=== PATIENT | male | born 1945 | race Caucasian/White ===

== ENCOUNTER → 2018-07-05 | Outpatient (CLI) | payer MEDICARE, MEDICAID ==
[~2018-07-05] MED LIST: CIPROFLOXACIN PO; GLIP5TAB13 PO; LISI20TA PO; LOVA20TA2 PO; METF-380 PO; SULF1TAB35 PO
== END ==
LOC: WOUNDCARE 12:57
PROVIDERS: ATTEND Surgery
DX: E11.621 Type 2 diabetes mellitus with foot ulcer (principal); I70.235 Atherosclerosis of native arteries of right leg with ulceration of other part of foot; L97.512 Non-pressure chronic ulcer of other part of right foot with fat layer exposed; E11.22 Type 2 diabetes mellitus with diabetic chronic kidney disease; N18.3 Chronic kidney disease, stage 3 (moderate); E11.65 Type 2 diabetes mellitus with hyperglycemia; E11.42 Type 2 diabetes mellitus with diabetic polyneuropathy
CPT/HCPCS: 99213

== ENCOUNTER → 2018-07-10 | Outpatient (CLI) | payer MEDICARE, MEDICAID | LOC: WOUNDCARE 15:01 | PROVIDERS: ATTEND Surgery | DX: E11.621 Type 2 diabetes mellitus with foot ulcer (principal); I70.235 Atherosclerosis of native arteries of right leg with ulceration of other part of foot; L97.512 Non-pressure chronic ulcer of other part of right foot with fat layer exposed; E11.22 Type 2 diabetes mellitus with diabetic chronic kidney disease; N18.3 Chronic kidney disease, stage 3 (moderate); E11.65 Type 2 diabetes mellitus with hyperglycemia; E11.42 Type 2 diabetes mellitus with diabetic polyneuropathy | CPT/HCPCS: 11042 ==

== ENCOUNTER → 2018-07-13 | Outpatient (CLI) | payer MEDICARE, MEDICAID | LOC: RAD 14:24 | PROVIDERS: ATTEND Surgery | DX: E11.621 Type 2 diabetes mellitus with foot ulcer (principal); E11.42 Type 2 diabetes mellitus with diabetic polyneuropathy; M89.8X7 Other specified disorders of bone, ankle and foot; L97.512 Non-pressure chronic ulcer of other part of right foot with fat layer exposed; I70.235 Atherosclerosis of native arteries of right leg with ulceration of other part of foot; E11.22 Type 2 diabetes mellitus with diabetic chronic kidney disease; N18.3 Chronic kidney disease, stage 3 (moderate) ==

== ENCOUNTER → 2018-07-17 | Outpatient (CLI) | payer MEDICARE, MEDICAID | LOC: WOUNDCARE 15:09 | PROVIDERS: ATTEND Surgery | DX: E11.621 Type 2 diabetes mellitus with foot ulcer (principal); L97.512 Non-pressure chronic ulcer of other part of right foot with fat layer exposed; I70.235 Atherosclerosis of native arteries of right leg with ulceration of other part of foot; E11.42 Type 2 diabetes mellitus with diabetic polyneuropathy; E11.22 Type 2 diabetes mellitus with diabetic chronic kidney disease; N18.3 Chronic kidney disease, stage 3 (moderate) | CPT/HCPCS: 11042 ==

== ENCOUNTER → 2018-07-26 | Outpatient (CLI) | payer MEDICARE, MEDICAID | LOC: WOUNDCARE 14:47 | PROVIDERS: ATTEND Nurse Practitioner | DX: E11.621 Type 2 diabetes mellitus with foot ulcer (principal); I70.235 Atherosclerosis of native arteries of right leg with ulceration of other part of foot; L97.512 Non-pressure chronic ulcer of other part of right foot with fat layer exposed; E11.42 Type 2 diabetes mellitus with diabetic polyneuropathy; E11.22 Type 2 diabetes mellitus with diabetic chronic kidney disease; N18.3 Chronic kidney disease, stage 3 (moderate) | CPT/HCPCS: 11042 ==

== ENCOUNTER → 2018-07-31 | Outpatient (CLI) | payer MEDICARE, MEDICAID ==
--- NOTE | 2018-07-13 17:43 | Diagnostic Imaging Report ---
EXAMINATION: Right foot radiographs, 3 views. COMPARISON: None. HISTORY: 73-year-old male, foot ulcer. FINDINGS: There is bone destruction of the distal aspect of the first metatarsal and likely involving the base of the first proximal phalanx. There appears to be adjacent soft tissue swelling. There is no identified radiopaque foreign body. There is apparent pes planus. There is degenerative type enthesopathy at the Achilles tendon insertion. IMPRESSION: Bone destruction subjacent to the first metatarsophalangeal joint suggesting osteomyelitis. Comparison radiographic imaging is not available. If there is known prior osteomyelitis at this location, either correlation with prior radiographs or dedicated MRI imaging is recommended for further assessment. Findings relating to prior osteomyelitis cannot be excluded. Dictated by: Dictated on workstation # [id number]
--- NOTE | 2018-07-31 12:56 | Diagnostic Imaging Report ---
INDICATION: Right foot ulcer. TECHNIQUE: Grayscale, color-flow, and duplex Doppler evaluation of right lower extremity arterial system was performed. FINDINGS: There are triphasic waveforms of the right common femoral artery and deep femoral artery. Biphasic waveforms in the superficial femoral artery are seen. Biphasic waveforms in the popliteal artery are noted. Velocities are unremarkable. There are biphasic waveforms in the peroneal trunk. Distal posterior tibial artery does show monophasic flow but normal velocities. Anterior tibial artery is monophasic. Dorsalis pedis is monophasic. Velocities are unremarkable. 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 No high-grade stenosis or occlusion is identified, however. Dictated by: Dictated on workstation # [id number]
== END ==
LOC: RAD 11:51
PROVIDERS: ATTEND Surgery
DX: E11.621 Type 2 diabetes mellitus with foot ulcer (principal); E11.42 Type 2 diabetes mellitus with diabetic polyneuropathy; E11.22 Type 2 diabetes mellitus with diabetic chronic kidney disease; L97.512 Non-pressure chronic ulcer of other part of right foot with fat layer exposed; I70.235 Atherosclerosis of native arteries of right leg with ulceration of other part of foot; N18.3 Chronic kidney disease, stage 3 (moderate); M89.8X7 Other specified disorders of bone, ankle and foot
CPT/HCPCS: 73630; 93926

== ENCOUNTER → 2018-08-01 | Outpatient (CLI) | payer MEDICARE, MEDICAID ==
[~2018-08-01] MED LIST changes: +AMLO5TAB9 PO; +CITA20TA9 PO; +INSU100I29 SQ; +METF-397 PO
== END ==
LOC: WOUNDCARE 13:54
PROVIDERS: ATTEND Surgery
DX: E11.621 Type 2 diabetes mellitus with foot ulcer (principal); L97.512 Non-pressure chronic ulcer of other part of right foot with fat layer exposed; E11.42 Type 2 diabetes mellitus with diabetic polyneuropathy; I70.235 Atherosclerosis of native arteries of right leg with ulceration of other part of foot; N18.3 Chronic kidney disease, stage 3 (moderate)
CPT/HCPCS: 11042

== ENCOUNTER → 2018-08-07 | Outpatient (CLI) | payer MEDICARE, MEDICAID ==
[~2018-08-07] MED LIST changes: +ASPI-983 PO; +ATOR10TA PO; +CATHETER FLUSH 10 ML SYR IV PRN; +CLOP75TA28 PO; +REGADENOSON 0.4 MG/5 ML SYR (LEXISCAN) IV ONE
[2018-08-07 09:21] VITALS: BP 183/86
[2018-08-07 09:24] VITALS: BP 135/74
--- NOTE | 2018-08-08 09:09 | STRESS TEST ---
DATE OF SERVICE: 08/07/2018 LEXISCAN MYOVIEW STRESS TEST REPORT REFERRING PHYSICIAN: Maria Guadalupe Watt DO Baseline heart rate is 59, baseline blood pressure 183/86. Baseline EKG is sinus rhythm with no ischemic changes. In summary, the patient was injected with 10.91 mCi of technetium-99 Myoview and the resting images were obtained. Then, the patient received 0.4 mg of Lexiscan followed by 31.9 mCi of technetium-99 Myoview. Throughout the test, there were no EKG changes. The resting and stress images were reviewed and compared in the short axis, horizontal long axis, and vertical long axis views. Review of the images showed diaphragmatic attenuation with decreased uptake involving the inferoapical segment through apex and anteroapical segment with mild reversibility. SSS is 7, SDS 7, TID value 0.97. On the gated images, the left ventricle appeared to be normal size with normal contractility. Calculated ejection fraction 50%. CONCLUSION: 1. The patient tolerated Lexiscan well. 2. Diaphragmatic attenuation with questionable ischemia involving the apex, anterior apex and inferior apex. 3. Normal left ventricular size with normal contractility. Calculated ejection fraction 50%. Job ID: [id number] DocumentID: [id number] Dictated Date: 08/08/2018 08:37:49 Rail Setter Date: 08/08/2018 09:09:28 Dictated By: MIKA MOROCHO MD
== END ==
LOC: CARD 07:52
PROVIDERS: ATTEND Internal Medicine Cardiovascular Disease
DX: I65.23 Occlusion and stenosis of bilateral carotid arteries (principal); I10 Essential (primary) hypertension; E78.01 Familial hypercholesterolemia; I70.263 Atherosclerosis of native arteries of extremities with gangrene, bilateral legs; E08.44 Diabetes mellitus due to underlying condition with diabetic amyotrophy
CPT/HCPCS: 78452; 93017

== ENCOUNTER 2018-08-09 11:39 | Day surgery (SDC) | payer MEDICARE, MEDICAID ==
[~2018-08-09] VITALS: Ht 175.3 cm; Wt 81.2 kg
[2018-08-09] VITALS (10 sets, daily range): BP systolic 123–173; BP diastolic 62–83
[~2018-08-09 11:39] MED LIST changes: -AMLO5TAB9 PO; -ASPI-983 PO; -ATOR10TA PO; -CATHETER FLUSH 10 ML SYR IV PRN; -CITA20TA9 PO; -CLOP75TA28 PO; -INSU100I29 SQ; -METF-397 PO; -REGADENOSON 0.4 MG/5 ML SYR (LEXISCAN) IV ONE
--- OUTSIDE RECORDS SUMMARY | 2018-08-09 11:44 | XMS REPORT | Continuity of Care Document ---
Demographics Preferred Language Unknown Marital Status Unknown Congregation Affiliation Unknown Race Unknown Ethnic Group Unknown Author Organization Unknown Address Unknown Allergies Active Description Code Type Severity Reaction Onset Reported/Identified Relationship to Patient Clinical Status Yes NO KNOWN DRUG ALLERGIES UNKNOWN NO KNOWN DRUG ALLERG Yes NO KNOWN DRUG ALLERGIES UNKNOWN UNKNOWN Yes No Known Drug Allergies [id number] Drug Allergy Unknown N/A 01/22/2010 Medications Medication Packaging Start Date Stop Date Route Dosage Sig IPRATROPIUM/ALBUTEROL INH SOLN (DUO-NEB INH SOLN) MLS 12/29/2017 12/29/2017 ONCE&1640 ACETAMINOPHEN TAB 500 MG (TYLENOL) MG 12/29/2017 12/29/2017 PRN ONCE CEFDINIR CAP 300 MG (OMNICEF) MG 12/29/2017 12/29/2017 ONCE&1750 NORMAL SALINE 250CC IV BAG INJ 0.9 % (NS 250CC IV BAG) ml 06/26/2018 07/05/2018 Daily&1630 ACETAMINOPHEN ORAL TABLET 325mg(Tylenol) MG 06/26/2018 07/26/2018 PRN EVERY 6 Hour Docusate sodium 100mg oral capsule (COLACE) 06/26/2018 07/26/2018 PRN BID LACTULOSE SYRUP LIQ 20 GM/30CC (CHRONULAC SYRUP) GM 06/26/2018 07/26/2018 BID&0800,2000 NORMAL SALINE 1000CC IV BAG INJ 0.9 % (NS 1000CC IV BAG) ml 06/26/2018 07/11/2018 CONTINUOUSEVERY 0 Hour NORMAL SALINE 1000CC IV BAG INJ 0.9 % (NS 1000CC IV BAG) ml 06/26/2018 07/11/2018 CONTINUOUSEVERY 0 Hour MELATONIN TAB 3 MG (MELATONIN) MG 06/26/2018 07/02/2018 PRN QHS ACETAMINOPHEN SUPPOS SUP 650 MG (TYLENOL) MG 06/26/2018 07/03/2018 PRN Q4H ONDANSETRON VIAL INJ 4 MG/2CC (ZOFRAN 2CC VIAL) MG 06/26/2018 07/03/2018 PRN Q4H ALUM/MAG/SIMETH 30CC LIQ (MYLANTA PLUS) cc 06/26/2018 07/06/2018 PRN Q4H GUAIFENESIN - DM LIQ (ROBITUSSIN DM) MLS 06/26/2018 07/03/2018 PRN Q4H ALPRAZOLAM TAB 0.25 MG (XANAX) MG 06/26/2018 07/06/2018 PRN Q6H CLONIDINE TAB 0.1 MG (CATAPRES) MG 06/26/2018 07/03/2018 PRN Q6H CALCIUM CARBONATE TAB 500 MG (TUMS) MG 06/26/2018 07/03/2018 PRN Q6H DIPHENHYDRAMINE CAP 25 MG (BENADRYL) MG 06/26/2018 07/03/2018 PRN Q6H HYDROCODONE/APAP 5MG/325MG TAB 5 MG/325MG (SHA-TAB 5/325) TAB 06/26/2018 07/06/2018 PRN Q6H BISACODYL TAB 5 MG (DULCOLAX) MG 06/27/2018 07/03/2018 PRN Daily POLYETHYLENE GLYCOL POWDER UD PWD (MIRALAX 17GM UNIT DOSE PAKS) gm 06/27/2018 07/03/2018 Daily&0900 BISACODYL SUPPOS 10 MG (DULCOLAX SUPPOS) MG 06/27/2018 07/03/2018 PRN Daily PANTOPRAZOLE VIAL INJ 40 MG (PROTONIX IV) MG 06/27/2018 07/06/2018 Daily&0900 MILK OF FOUZIA LIQ ml 06/27/2018 07/26/2018 PRN Daily INSULIN ASPART PEN INJ 100 UNITS/CC (NOVOLOG FLEXPEN) Dr. Watt 06/27/2018 07/27/2018 ACHS INSULIN ASPART PEN INJ 100 UNITS/CC (NOVOLOG FLEXPEN) 06/27/2018 07/27/2018 ACHS&0630,1130,1630,2100 Heparin, FLUSH IV syringe 500 units UNITS 06/27/2018 06/27/2018 ONCE&1830 ENOXAPARIN SYRINGE INJ 30 MG (LOVENOX SYRINGE) MG 06/27/2018 07/11/2018 Daily&2000 CEFEPIME PREMIX BAG IV 1 GM/50CC (MAXIPIME PREMIX BAG) GM 06/28/2018 07/04/2018 Q12H&0800,2000 ENOXAPARIN SYRINGE INJ 30 MG (LOVENOX SYRINGE) MG 06/28/2018 07/12/2018 Daily&0900 CITALOPRAM TAB 20 MG (CELEXA) MG 06/28/2018 07/04/2018 Daily&0900 Heparin, FLUSH IV syringe 500 units UNITS 06/28/2018 07/07/2018 Daily&1400 NORMAL SALINE 250CC IV BAG INJ 0.9 % (NS 250CC IV BAG) ml 06/28/2018 07/03/2018 Q12H&0600,1800 NORMAL SALINE 1000CC IV BAG INJ 0.9 % (NS 1000CC IV BAG) ml 06/29/2018 06/29/2018 CONTINUOUSEVERY 0 Hour ACETAMINOPHEN ORAL TABLET 325mg(Tylenol) MG 06/30/2018 07/30/2018 PRN EVERY 6 Hour ACETAMINOPHEN SUPPOS SUP 650 MG (TYLENOL) MG 06/30/2018 07/07/2018 PRN Q4H ONDANSETRON VIAL INJ 4 MG/2CC (ZOFRAN 2CC VIAL) MG 06/30/2018 07/07/2018 PRN Q4H ALUM/MAG/SIMETH 30CC LIQ (MYLANTA PLUS) cc 06/30/2018 07/10/2018 PRN Q4H GUAIFENESIN - DM LIQ (ROBITUSSIN DM) MLS 06/30/2018 07/07/2018 PRN Q4H INSULIN ASPART PEN INJ 100 UNITS/CC (NOVOLOG FLEXPEN) Dr. Watt 06/30/2018 07/30/2018 ACHS&0630,1130,1630,2100 ALPRAZOLAM TAB 0.25 MG (XANAX) MG 06/30/2018 07/10/2018 PRN Q6H CLONIDINE TAB 0.1 MG (CATAPRES) MG 06/30/2018 07/07/2018 PRN Q6H CALCIUM CARBONATE TAB 500 MG (TUMS) MG 06/30/2018 07/07/2018 PRN Q6H DIPHENHYDRAMINE CAP 25 MG (BENADRYL) MG 06/30/2018 07/07/2018 PRN Q6H HYDROCODONE/APAP 5MG/325MG TAB 5 MG/325MG (SHA-TAB 5/325) TAB 06/30/2018 07/10/2018 PRN Q6H Heparin, FLUSH IV syringe 500 units UNITS 06/30/2018 06/30/2018 ONCE&1701 NORMAL SALINE 250CC IV BAG INJ 0.9 % (NS 250CC IV BAG) ml 06/30/2018 07/03/2018 Q12H&0600,1800 Docusate sodium 100mg oral capsule (COLACE) 06/30/2018 07/30/2018 PRN BID CEFEPIME PREMIX BAG IV 1 GM/50CC (MAXIPIME PREMIX BAG) GM 06/30/2018 07/05/2018 Q12H&0800,2000 LACTULOSE SYRUP LIQ 20 GM/30CC (CHRONULAC SYRUP) GM 06/30/2018 07/30/2018 BID&0800,2000 MELATONIN TAB 3 MG (MELATONIN) MG 06/30/2018 07/06/2018 PRN QHS AMLODIPINE TAB 5 MG (NORVASC) MG 07/01/2018 07/10/2018 Daily&0900 Heparin, FLUSH IV syringe 500 units UNITS 07/01/2018 07/10/2018 Daily&0900 ENOXAPARIN SYRINGE INJ 30 MG (LOVENOX SYRINGE) MG 07/01/2018 07/30/2018 Daily&0900 BISACODYL TAB 5 MG (DULCOLAX) MG 07/01/2018 07/07/2018 PRN Daily POLYETHYLENE GLYCOL POWDER UD PWD (MIRALAX 17GM UNIT DOSE PAKS) gm 07/01/2018 07/07/2018 Daily&0900 CITALOPRAM TAB 20 MG (CELEXA) MG 07/01/2018 07/30/2018 Daily&0900 BISACODYL SUPPOS 10 MG (DULCOLAX SUPPOS) MG 07/01/2018 07/07/2018 PRN Daily PANTOPRAZOLE VIAL INJ 40 MG (PROTONIX IV) MG 07/01/2018 07/30/2018 Daily&0900 MILK OF MAGNESIA LIQ ml 07/01/2018 07/30/2018 PRN Daily NORMAL SALINE 250CC IV BAG INJ 0.9 % (NS 250CC IV BAG) ml 07/02/2018 07/09/2018 Q12H&0600,1800 Cefepime (Maxipime) 1 Gm vial GM 07/05/2018 07/05/2018 ONCE&0647 Heparin, FLUSH IV syringe 500 units UNITS 07/05/2018 07/05/2018 ONCE&1851 NORMAL SALINE 250CC IV BAG INJ 0.9 % (NS 250CC IV BAG) ml 07/05/2018 07/05/2018 ONCE&1851 CEFEPIME PREMIX BAG IV 1 GM/50CC (MAXIPIME PREMIX BAG) GM 07/05/2018 07/05/2018 ONCE&1851 Heparin, FLUSH IV syringe 500 units UNITS 07/06/2018 07/06/2018 ONCE&0703 NORMAL SALINE 250CC IV BAG INJ 0.9 % (NS 250CC IV BAG) ml 07/06/2018 07/06/2018 ONCE&0703 CEFEPIME PREMIX BAG IV 1 GM/50CC (MAXIPIME PREMIX BAG) GM 07/06/2018 07/06/2018 ONCE&0703 Cefepime (Maxipime) 1 Gm vial GM 07/06/2018 07/06/2018 ONCE&1900 Heparin, FLUSH IV syringe 500 units UNITS 07/06/2018 07/06/2018 ONCE&1933 VANCOMYCIN VIAL INJ 750 MG (VANCOCIN VIAL) MG 07/07/2018 07/07/2018 ONCE&0654 CEFEPIME PREMIX BAG IV 1 GM/50CC (MAXIPIME PREMIX BAG) GM 07/07/2018 07/07/2018 ONCE&0654 CEFEPIME PREMIX BAG IV 1 GM/50CC (MAXIPIME PREMIX BAG) GM 07/07/2018 07/07/2018 ONCE&1901 Normal SALINE 0.9 % (NS 100cc) (plain bag) ml 07/07/2018 07/07/2018 ONCE&1902 Heparin, FLUSH IV syringe 500 units UNITS 07/08/2018 07/08/2018 ONCE&0646 Normal SALINE 0.9 % (NS 100cc) (plain bag) ml 07/08/2018 07/08/2018 ONCE&0646 CEFEPIME PREMIX BAG IV 1 GM/50CC (MAXIPIME PREMIX BAG) GM 07/08/2018 07/08/2018 ONCE&0646 Cefepime (Maxipime) 1 Gm vial GM 07/08/2018 07/08/2018 ONCE&1919 Heparin, FLUSH IV syringe 500 units UNITS 07/08/2018 07/08/2018 ONCE&2229 Cefepime (Maxipime) 1 Gm vial GM 07/09/2018 07/18/2018 Q12H&0600,1800 Normal SALINE 0.9 % (NS 100cc) (plain bag) ml 07/09/2018 07/09/2018 ONCE&0651 CEFEPIME PREMIX BAG IV 1 GM/50CC (MAXIPIME PREMIX BAG) GM 07/09/2018 07/09/2018 ONCE&0651 Heparin, FLUSH IV syringe 500 units UNITS 07/09/2018 07/18/2018 BID&0800,2000 Normal SALINE 0.9 % (NS 100cc) (plain bag) ml 07/09/2018 07/09/2018 ONCE&1848 CEFEPIME PREMIX BAG IV 1 GM/50CC (MAXIPIME PREMIX BAG) GM 07/09/2018 07/09/2018 ONCE&1848 Heparin, FLUSH IV syringe 500 units UNITS 07/09/2018 07/09/2018 ONCE&1850 Heparin, FLUSH IV syringe 500 units UNITS 07/10/2018 07/10/2018 ONCE&0701 Cefepime (Maxipime) 1 Gm vial GM 07/10/2018 07/10/2018 ONCE&0701 Normal SALINE 0.9 % (NS 100cc) (plain bag) ml 07/10/2018 07/10/2018 ONCE&0701 Cefepime (Maxipime) 1 Gm vial GM 07/10/2018 07/10/2018 ONCE&1850 Normal SALINE 0.9 % (NS 100cc) (plain bag) ml 07/10/2018 07/10/2018 ONCE&1850 Cefepime (Maxipime) 1 Gm vial GM 07/11/2018 07/12/2018 Q12H&0600 Heparin, FLUSH IV syringe 500 units UNITS 07/11/2018 07/21/2018 BID&0800,2000 Cefepime (Maxipime) 1 Gm vial GM 07/12/2018 07/13/2018 Q12H&0600 Normal SALINE 0.9 % (NS 100cc) (plain bag) ml 07/13/2018 07/13/2018 ONCE&0700 CEFEPIME PREMIX BAG IV 1 GM/50CC (MAXIPIME PREMIX BAG) GM 07/13/2018 07/13/2018 ONCE&0700 Vancomycin-water IV piggyback 1 Gm Premix GM 07/14/2018 07/14/2018 ONCE&0638 CEFEPIME PREMIX BAG IV 1 GM/50CC (MAXIPIME PREMIX BAG) GM 07/14/2018 07/14/2018 ONCE&0638 Heparin, FLUSH IV syringe 500 units UNITS 07/14/2018 07/14/2018 ONCE&1840 Normal SALINE 0.9 % (NS 100cc) (plain bag) ml 07/14/2018 07/14/2018 EVERY 24 Hour&1840 CEFEPIME PREMIX BAG IV 1 GM/50CC (MAXIPIME PREMIX BAG) GM 07/14/2018 07/14/2018 ONCE&1840 Normal SALINE 0.9 % (NS 100cc) (plain bag) ml 07/15/2018 07/15/2018 ONCE&0640 CEFEPIME PREMIX BAG IV 1 GM/50CC (MAXIPIME PREMIX BAG) GM 07/15/2018 07/15/2018 ONCE&0640 CEFEPIME PREMIX BAG IV 1 GM/50CC (MAXIPIME PREMIX BAG) GM 07/16/2018 07/16/2018 ONCE&1835 Heparin, FLUSH IV syringe 500 units UNITS 07/16/2018 07/16/2018 ONCE&1838 Normal SALINE 0.9 % (NS 100cc) (plain bag) ml 07/16/2018 07/16/2018 ONCE&1838 Heparin, FLUSH IV syringe 500 units UNITS 07/17/2018 07/26/2018 BID&0800,2000 Normal SALINE 0.9 % (NS 100cc) (plain bag) ml 07/17/2018 07/17/2018 BID&0800,2000 CEFEPIME PREMIX BAG IV 1 GM/50CC (MAXIPIME PREMIX BAG) GM 07/17/2018 07/17/2018 BID&2000 Normal SALINE 0.9 % (NS 100cc) (plain bag) ml 07/19/2018 07/19/2018 BID&0800,2000 CEFEPIME PREMIX BAG IV 1 GM/50CC (MAXIPIME PREMIX BAG) GM 07/19/2018 07/19/2018 BID&2000 Heparin, FLUSH IV syringe 500 units UNITS 07/19/2018 07/19/2018 ONCE&2000 Heparin, FLUSH IV syringe 500 units UNITS 07/20/2018 07/20/2018 BID&2000 Normal SALINE 0.9 % (NS 100cc) (plain bag) ml 07/20/2018 07/20/2018 BID&0800,2000 CEFEPIME PREMIX BAG IV 1 GM/50CC (MAXIPIME PREMIX BAG) GM 07/20/2018 07/20/2018 BID&2000 Cefepime (Maxipime) 1 Gm vial GM 07/21/2018 07/22/2018 Q12H&0600 Cefepime (Maxipime) 1 Gm vial GM 07/21/2018 07/21/2018 ONCE&1830 Normal SALINE 0.9 % (NS 100cc) (plain bag) ml 07/21/2018 07/21/2018 ONCE&1830 Heparin, FLUSH IV syringe 500 units UNITS 07/21/2018 07/21/2018 ONCE&1900 CEFEPIME PREMIX BAG IV 1 GM/50CC (MAXIPIME PREMIX BAG) GM 07/22/2018 07/22/2018 ONCE&1900 Heparin, FLUSH IV syringe 500 units UNITS 07/22/2018 07/22/2018 ONCE&2015 CEFEPIME PREMIX BAG IV 1 GM/50CC (MAXIPIME PREMIX BAG) GM 07/23/2018 07/23/2018 BID&0630 Normal SALINE 0.9 % (NS 100cc) (plain bag) ml 07/23/2018 07/23/2018 BID&0700 Heparin, FLUSH IV syringe 500 units UNITS 07/23/2018 07/23/2018 ONCE&1831 Normal SALINE 0.9 % (NS 100cc) (plain bag) ml 07/23/2018 07/23/2018 ONCE&1831 CEFEPIME PREMIX BAG IV 1 GM/50CC (MAXIPIME PREMIX BAG) GM 07/23/2018 07/23/2018 ONCE&1831 CEFEPIME PREMIX BAG IV 1 GM/50CC (MAXIPIME PREMIX BAG) GM 07/24/2018 07/24/2018 BID&1900 Normal SALINE 0.9 % (NS 100cc) (plain bag) ml 07/24/2018 07/24/2018 BID&0800,2000 Heparin, FLUSH IV syringe 500 units UNITS 07/24/2018 07/24/2018 ONCE&2000 Normal SALINE 0.9 % (NS 100cc) (plain bag) ml 07/25/2018 07/25/2018 Q12H&0600,1800 CEFEPIME PREMIX BAG IV 1 GM/50CC (MAXIPIME PREMIX BAG) GM 07/25/2018 07/25/2018 BID&1900 CEFEPIME PREMIX BAG IV 1 GM/50CC (MAXIPIME PREMIX BAG) GM 07/25/2018 08/01/2018 Q8H&0600,1400,2200 Heparin, FLUSH IV syringe 500 units UNITS 07/25/2018 07/25/2018 ONCE&2000 CEFEPIME PREMIX BAG IV 1 GM/50CC (MAXIPIME PREMIX BAG) GM 07/26/2018 07/26/2018 BID&2000 Cefepime (Maxipime) 1 Gm vial GM 07/27/2018 07/27/2018 Q12H&1830 Normal SALINE 0.9 % (NS 100cc) (plain bag) ml 07/27/2018 07/27/2018 BID&0630,1830 CEFEPIME PREMIX BAG IV 1 GM/50CC (MAXIPIME PREMIX BAG) GM 07/27/2018 07/27/2018 ONCE&1830 Heparin, FLUSH IV syringe 500 units UNITS 07/27/2018 07/27/2018 ONCE&2000 CEFEPIME PREMIX BAG IV 1 GM/50CC (MAXIPIME PREMIX BAG) GM 07/28/2018 07/28/2018 BID&1900 Normal SALINE 0.9 % (NS 100cc) (plain bag) ml 07/28/2018 07/28/2018 BID&0800,2000 Heparin, FLUSH IV syringe 500 units UNITS 07/28/2018 07/28/2018 ONCE&2100 Normal SALINE 0.9 % (NS 100cc) (plain bag) ml 07/29/2018 07/29/2018 BID&0800,2000 CEFEPIME PREMIX BAG IV 1 GM/50CC (MAXIPIME PREMIX BAG) GM 07/29/2018 07/29/2018 BID&2000 Heparin, FLUSH IV syringe 500 units UNITS 07/29/2018 07/29/2018 Daily&2000 Normal SALINE 0.9 % (NS 100cc) (plain bag) ml 07/30/2018 07/30/2018 BID&0700,1900 CEFEPIME PREMIX BAG IV 1 GM/50CC (MAXIPIME PREMIX BAG) GM 07/30/2018 07/30/2018 BID&1900 Heparin, FLUSH IV syringe 500 units UNITS 07/30/2018 07/30/2018 ONCE&2000 Normal SALINE 0.9 % (NS 100cc) (plain bag) ml 07/31/2018 07/31/2018 BID&0800,2000 CEFEPIME PREMIX BAG IV 1 GM/50CC (MAXIPIME PREMIX BAG) GM 07/31/2018 07/31/2018 BID&2000 Heparin, FLUSH IV syringe 500 units UNITS 07/31/2018 07/31/2018 Daily&2000 Heparin, FLUSH IV syringe 500 units UNITS 08/01/2018 08/01/2018 ONCE&1900 Normal SALINE 0.9 % (NS 100cc) (plain bag) ml 08/01/2018 08/01/2018 ONCE&1900 CEFEPIME PREMIX BAG IV 1 GM/50CC (MAXIPIME PREMIX BAG) GM 08/01/2018 08/01/2018 ONCE&1900 Normal SALINE 0.9 % (NS 100cc) (plain bag) ml 08/02/2018 08/02/2018 BID&0800,2000 CEFEPIME PREMIX BAG IV 1 GM/50CC (MAXIPIME PREMIX BAG) GM 08/02/2018 08/02/2018 BID&2000 Heparin, FLUSH IV syringe 500 units UNITS 08/02/2018 08/02/2018 Daily&2000 CEFEPIME PREMIX BAG IV 1 GM/50CC (MAXIPIME PREMIX BAG) GM 08/03/2018 08/03/2018 Q12H&1900 Heparin, FLUSH IV syringe 500 units UNITS 08/03/2018 08/03/2018 BID&2000 Normal SALINE 0.9 % (NS 100cc) (plain bag) ml 08/03/2018 08/03/2018 BID&0800,2000 Normal SALINE 0.9 % (NS 100cc) (plain bag) ml 08/04/2018 08/04/2018 BID&0700,1900 CEFEPIME PREMIX BAG IV 1 GM/50CC (MAXIPIME PREMIX BAG) GM 08/04/2018 08/04/2018 BID&1900 CEFEPIME PREMIX BAG IV 1 GM/50CC (MAXIPIME PREMIX BAG) GM 08/04/2018 08/10/2018 BID&0800,2000 Heparin, FLUSH IV syringe 500 units UNITS 08/04/2018 08/04/2018 ONCE&2000 Normal SALINE 0.9 % (NS 100cc) (plain bag) ml 08/05/2018 08/05/2018 BID&0700,1900 CEFEPIME PREMIX BAG IV 1 GM/50CC (MAXIPIME PREMIX BAG) GM 08/05/2018 08/05/2018 BID&1900 Heparin, FLUSH IV syringe 500 units UNITS 08/05/2018 08/05/2018 ONCE&2000 Normal SALINE 0.9 % (NS 100cc) (plain bag) ml 08/06/2018 08/06/2018 BID&0700,1900 CEFEPIME PREMIX BAG IV 1 GM/50CC (MAXIPIME PREMIX BAG) GM 08/06/2018 08/06/2018 BID&1900 Heparin, FLUSH IV syringe 500 units UNITS 08/06/2018 08/06/2018 ONCE&2000 Problems Date Dx Coded Attending Type Code Diagnosis Diagnosed By 12/20/2016 Lani Whaley 466.0 ACUTE BRONCHITIS 12/20/2016 Lani Whaley J20.9 ACUTE BRONCHITIS, UNSPECIFIED 12/29/2017 Lani Whaley 466.0 ACUTE BRONCHITIS 12/29/2017 Lani Whaley J20.9 ACUTE BRONCHITIS, UNSPECIFIED 06/26/2018 Maria Guadalupe Watt 730.07 ACUTE OSTEOMYELITIS INVOLVING ANKLE AND FOOT 06/26/2018 Maria Guadalupe Watt M86.171 OTHER ACUTE OSTEOMYELITIS, RIGHT ANKLE AND FOOT 06/26/2018 Maria Guadalupe Watt W 250.00 DIABETES MELLITUS WITHOUT MENTION OF COMPLICATION, TYPE II OR UNSPECIFIED TYPE, NOT STATED UNCONTROLLED 06/26/2018 Maria Guadalupe Watt 730.07 ACUTE OSTEOMYELITIS INVOLVING ANKLE AND FOOT 06/26/2018 Maria Guadalupe Watt E11.9 TYPE 2 DIABETES MELLITUS WITHOUT COMPLICATIONS 06/26/2018 Maria Guadalupe Watt M86.171 OTHER ACUTE OSTEOMYELITIS, RIGHT ANKLE AND FOOT 07/04/2018 Maria Guadalupe Watt W 041.12 METHICILLIN RESISTANT STAPHYLOCOCCUS AUREUS INFECTION IN CONDITIONS CLASSIFIED ELSEWHERE AND OF UNSPECIFIED SITE 07/04/2018 Maria Guadalupe Watt 250.80 07/04/2018 Maria Guadalupe Watt W 272.4 OTHER AND UNSPECIFIED HYPERLIPIDEMIA 07/04/2018 Maria Guadalupe Watt W 296.20 MAJOR DEPRESSIVE DISORDER, SINGLE EPISODE, UNSPECIFIED DEGREE 07/04/2018 Mari aGuadalupe Watt W 401.0 MALIGNANT ESSENTIAL HYPERTENSION 07/04/2018 Maria Guadalupe Watt W 682.6 CELLULITIS AND ABSCESS OF LEG, EXCEPT FOOT 07/04/2018 Maria Guadalupe Watt W 707.15 07/04/2018 Maria Guadalupe Watt W B95.62 METHICILLIN RESIS STAPH INFCT CAUSING DISEASES CLASSD ELSWHR 07/04/2018 Maria Guadalupe Watt W E11.621 TYPE 2 DIABETES MELLITUS WITH FOOT ULCER 07/04/2018 Maria Guadalupe Watt W E78.5 HYPERLIPIDEMIA, UNSPECIFIED 07/04/2018 Maria Guadalupe Watt W F32.9 MAJOR DEPRESSIVE DISORDER, SINGLE EPISODE, UNSPECIFIED 07/04/2018 Maria Guadalupe Watt W I10 ESSENTIAL (PRIMARY) HYPERTENSION 07/04/2018 Maria Guadalupe Watt W L03.115 CELLULITIS OF RIGHT LOWER LIMB 07/04/2018 Maria Guadalupe Watt L97.514 NON- PRS CHRONIC ULCER OTH PRT RIGHT FOOT W NECROSIS OF BONE 07/05/2018 Maria Guadalupe Watt W 041.12 METHICILLIN RESISTANT STAPHYLOCOCCUS AUREUS INFECTION IN CONDITIONS CLASSIFIED ELSEWHERE AND OF UNSPECIFIED SITE 07/05/2018 Maria Guadalupe Watt W 250.80 DIABETES MELLITUS WITH OTHER SPECIFIED MANIFESTATIONS, TYPE II OR UNSPECIFIED TYPE, NOT STATED UNCONTROLLED 07/05/2018 Maria Guadalupe Watt W 682.6 CELLULITIS AND ABSCESS OF LEG, EXCEPT FOOT 07/05/2018 Maria Guadalupe Watt W 707.15 ULCER OF OTHER PART OF FOOT 07/05/2018 Maria Guadalupe Watt W B95.62 METHICILLIN RESIS STAPH INFCT CAUSING DISEASES CLASSD ELSR 07/05/2018 Maria Guadalupe Watt W E11.621 TYPE 2 DIABETES MELLITUS WITH FOOT ULCER 07/05/2018 Maria Guadalupe Watt W L03.115 CELLULITIS OF RIGHT LOWER LIMB 07/05/2018 Maria Guadalupe Watt L97.514 NON- PRS CHRONIC ULCER OTH PRT RIGHT FOOT W NECROSIS OF BONE 07/05/2018 Maria Guadalupe Watt W 041.12 METHICILLIN RESISTANT STAPHYLOCOCCUS AUREUS INFECTION IN CONDITIONS CLASSIFIED ELSEWHERE AND OF UNSPECIFIED SITE 07/05/2018 Maria Guadalupe Watt W 250.80 DIABETES MELLITUS WITH OTHER SPECIFIED MANIFESTATIONS, TYPE II OR UNSPECIFIED TYPE, NOT STATED UNCONTROLLED 07/05/2018 Maria Guadalupe Watt W 682.6 CELLULITIS AND ABSCESS OF LEG, EXCEPT FOOT 07/05/2018 Maria Guadalupe Watt W 707.15 ULCER OF OTHER PART OF FOOT 07/05/2018 Maria Guadalupe Watt W B95.62 METHICILLIN RESIS STAPH INFCT CAUSING DISEASES CLASSD ELSWHR 07/05/2018 Maria Guadalupe Watt E11.621 TYPE 2 DIABETES MELLITUS WITH FOOT ULCER 07/05/2018 Maria Guadalupe Watt L03.115 CELLULITIS OF RIGHT LOWER LIMB 07/05/2018 Maria Guadalupe Watt L97.514 NON- PRS CHRONIC ULCER OTH PRT RIGHT FOOT W NECROSIS OF BONE 07/06/2018 ANA BASS MD, Ot 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 07/06/2018 ANA BASS MD, Ot E11.42 TYPE 2 DIABETES MELLITUS WITH DIABETIC P 07/06/2018 ANA BASS MD, Ot E11.621 TYPE 2 DIABETES MELLITUS WITH FOOT ULCER 07/06/2018 ANA BASS MD, Ot E11.65 TYPE 2 DIABETES MELLITUS WITH HYPERGLYCE 07/06/2018 ANA BASS MD, Ot I70.235 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 07/06/2018 ANA BASS MD, Ot L97.512 NON-PRS CHRONIC ULCER OTH PRT RIGHT FOOT 07/06/2018 ANA BASS MD, Ot N18.3 CHRONIC KIDNEY DISEASE, STAGE 3 (MODERAT 07/06/2018 Maria Guadalupe Watt W 041.12 METHICILLIN RESISTANT STAPHYLOCOCCUS AUREUS INFECTION IN CONDITIONS CLASSIFIED ELSEWHERE AND OF UNSPECIFIED SITE 07/06/2018 Maria Guadalupe Watt 250.80 DIABETES MELLITUS WITH OTHER SPECIFIED MANIFESTATIONS, TYPE II OR UNSPECIFIED TYPE, NOT STATED UNCONTROLLED 07/06/2018 Maria Guadalupe Watt 682.6 CELLULITIS AND ABSCESS OF LEG, EXCEPT FOOT 07/06/2018 Maria Guadalupe Watt 707.15 ULCER OF OTHER PART OF FOOT 07/06/2018 Maria Guadalupe Watt B95.62 METHICILLIN RESIS STAPH INFCT CAUSING DISEASES CLASSD ELSWHR 07/06/2018 Maria Guadalupe Watt E11.621 TYPE 2 DIABETES MELLITUS WITH FOOT ULCER 07/06/2018 Maria Guadalupe Watt L03.115 CELLULITIS OF RIGHT LOWER LIMB 07/06/2018 Maria Guadalupe Watt L97.514 NON- PRS CHRONIC ULCER OTH PRT RIGHT FOOT W NECROSIS OF BONE 07/07/2018 Maria Guadalupe Watt 250.80 DIABETES MELLITUS WITH OTHER SPECIFIED MANIFESTATIONS, TYPE II OR UNSPECIFIED TYPE, NOT STATED UNCONTROLLED 07/07/2018 Maria Guadalupe Watt W E11.621 TYPE 2 DIABETES MELLITUS WITH FOOT ULCER 07/08/2018 Maria Guadalupe Watt W 041.12 METHICILLIN RESISTANT STAPHYLOCOCCUS AUREUS INFECTION IN CONDITIONS CLASSIFIED ELSEWHERE AND OF UNSPECIFIED SITE 07/08/2018 Maria Guadalupe Watt W 250.80 DIABETES MELLITUS WITH OTHER SPECIFIED MANIFESTATIONS, TYPE II OR UNSPECIFIED TYPE, NOT STATED UNCONTROLLED 07/08/2018 Maria Guadalupe Watt W 682.6 CELLULITIS AND ABSCESS OF LEG, EXCEPT FOOT 07/08/2018 Maria Guadalupe Watt W 707.15 ULCER OF OTHER PART OF FOOT 07/08/2018 Maria Guadalupe Watt W B95.62 METHICILLIN RESIS STAPH INFCT CAUSING DISEASES CLASSD ELSWHR 07/08/2018 Maria Guadalupe Watt E11.621 TYPE 2 DIABETES MELLITUS WITH FOOT ULCER 07/08/2018 Maria Guadalupe Watt W L03.115 CELLULITIS OF RIGHT LOWER LIMB 07/08/2018 Maria Guadalupe Watt L97.514 NON- PRS CHRONIC ULCER OTH PRT RIGHT FOOT W NECROSIS OF BONE 07/09/2018 Maria Guadalupe Watt W 250.80 DIABETES MELLITUS WITH OTHER SPECIFIED MANIFESTATIONS, TYPE II OR UNSPECIFIED TYPE, NOT STATED UNCONTROLLED 07/09/2018 Maria Guadalupe Watt W E11.621 TYPE 2 DIABETES MELLITUS WITH FOOT ULCER 07/10/2018 Maria Guadalupe Watt W 250.80 DIABETES MELLITUS WITH OTHER SPECIFIED MANIFESTATIONS, TYPE II OR UNSPECIFIED TYPE, NOT STATED UNCONTROLLED 07/10/2018 Maria Guadalupe Watt E11.621 TYPE 2 DIABETES MELLITUS WITH FOOT ULCER 07/11/2018 ANA BASS MD, Ot 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 07/11/2018 ANA BASS MD, Ot E11.42 TYPE 2 DIABETES MELLITUS WITH DIABETIC P 07/11/2018 ANA BASS MD, Ot E11.621 TYPE 2 DIABETES MELLITUS WITH FOOT ULCER 07/11/2018 ANA BASS MD, Ot E11.65 TYPE 2 DIABETES MELLITUS WITH HYPERGLYCE 07/11/2018 ANA BASS MD, Ot I70.235 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 07/11/2018 ANA BASS MD, Ot L97.512 NON-PRS CHRONIC ULCER OTH PRT RIGHT FOOT 07/11/2018 ANA BASS MD, Ot N18.3 CHRONIC KIDNEY DISEASE, STAGE 3 (MODERAT 07/11/2018 Maria Guadalupe Watt W 250.80 DIABETES MELLITUS WITH OTHER SPECIFIED MANIFESTATIONS, TYPE II OR UNSPECIFIED TYPE, NOT STATED UNCONTROLLED 07/11/2018 Maria Guadalupe Watt E11.621 TYPE 2 DIABETES MELLITUS WITH FOOT ULCER 07/12/2018 ANA BASS MD, Ot L97.512 NON-PRS CHRONIC ULCER OTH PRT RIGHT FOOT 07/12/2018 ANA BASS MD, Ot L97.512 NON-PRS CHRONIC ULCER OTH PRT RIGHT FOOT 07/12/2018 Maria Guadalupe Watt W 250.80 DIABETES MELLITUS WITH OTHER SPECIFIED MANIFESTATIONS, TYPE II OR UNSPECIFIED TYPE, NOT STATED UNCONTROLLED 07/12/2018 Maria Guadalupe Watt E11.621 TYPE 2 DIABETES MELLITUS WITH FOOT ULCER 07/13/2018 Maria Guadalupe Watt W 041.12 METHICILLIN RESISTANT STAPHYLOCOCCUS AUREUS INFECTION IN CONDITIONS CLASSIFIED ELSEWHERE AND OF UNSPECIFIED SITE 07/13/2018 Maria Guadalupe Watt W 250.80 DIABETES MELLITUS WITH OTHER SPECIFIED MANIFESTATIONS, TYPE II OR UNSPECIFIED TYPE, NOT STATED UNCONTROLLED 07/13/2018 Maria Guadalupe Watt W 682.6 CELLULITIS AND ABSCESS OF LEG, EXCEPT FOOT 07/13/2018 Maria Guadalupe Watt W 707.15 ULCER OF OTHER PART OF FOOT 07/13/2018 Maria Guadalupe Watt W B95.62 METHICILLIN RESIS STAPH INFCT CAUSING DISEASES CLASSD ELSWHR 07/13/2018 Maria Guadalupe Watt E11.621 TYPE 2 DIABETES MELLITUS WITH FOOT ULCER 07/13/2018 Maria Guadalupe Watt W L03.115 CELLULITIS OF RIGHT LOWER LIMB 07/13/2018 Maria Guadalupe Watt L97.514 NON- PRS CHRONIC ULCER OTH PRT RIGHT FOOT W NECROSIS OF BONE 07/13/2018 ANA BASS MD, Ot 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 07/13/2018 ANA BASS MD, Ot E11.42 TYPE 2 DIABETES MELLITUS WITH DIABETIC P 07/13/2018 ANA BASS MD, Ot E11.621 TYPE 2 DIABETES MELLITUS WITH FOOT ULCER 07/13/2018 ANA BASS MD, Ot E11.65 TYPE 2 DIABETES MELLITUS WITH HYPERGLYCE 07/13/2018 ANA BASS MD, Ot I70.235 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 07/13/2018 SHELIA MD, ANA G Ot L97.512 NON-PRS CHRONIC ULCER OTH PRT RIGHT FOOT 07/13/2018 ANA BASS MD Ot N18.3 CHRONIC KIDNEY DISEASE, STAGE 3 (MODERAT 07/13/2018 ANA BASS MD Ot 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 07/13/2018 ANA BASS MD Ot E11.42 TYPE 2 DIABETES MELLITUS WITH DIABETIC P 07/13/2018 ANA BASS MD Ot E11.621 TYPE 2 DIABETES MELLITUS WITH FOOT ULCER 07/13/2018 ANA BASS MD, Ot E11.65 TYPE 2 DIABETES MELLITUS WITH HYPERGLYCE 07/13/2018 ANA BASS MD Ot I70.235 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 07/13/2018 ANA BASS MD, Ot L97.512 NON-PRS CHRONIC ULCER OTH PRT RIGHT FOOT 07/13/2018 ANA BASS MD Ot N18.3 CHRONIC KIDNEY DISEASE, STAGE 3 (MODERAT 07/13/2018 ANA BASS MD Ot 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 07/13/2018 ANA BASS MD, Ot E11.42 TYPE 2 DIABETES MELLITUS WITH DIABETIC P 07/13/2018 ANA BASS MD Ot E11.621 TYPE 2 DIABETES MELLITUS WITH FOOT ULCER 07/13/2018 ANA BASS MD Ot I70.235 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 07/13/2018 ANA BASS MD Ot L97.512 NON-PRS CHRONIC ULCER OTH PRT RIGHT FOOT 07/13/2018 ANA BASS MD Ot M89.8X7 OTHER SPECIFIED DISORDERS OF BONE, ANKLE 07/13/2018 ANA BASS MD Ot N18.3 CHRONIC KIDNEY DISEASE, STAGE 3 (MODERAT 07/14/2018 ANA BASS MD Ot 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 07/14/2018 ANA BASS MD Ot E11.42 TYPE 2 DIABETES MELLITUS WITH DIABETIC P 07/14/2018 ANA BASS MD Ot E11.621 TYPE 2 DIABETES MELLITUS WITH FOOT ULCER 07/14/2018 ANA BASS MD Ot E11.65 TYPE 2 DIABETES MELLITUS WITH HYPERGLYCE 07/14/2018 ANA BASS MD Ot I70.235 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 07/14/2018 ANA BASS MD, Ot L97.512 NON-PRS CHRONIC ULCER OTH PRT RIGHT FOOT 07/14/2018 ANA BASS MD, Ot N18.3 CHRONIC KIDNEY DISEASE, STAGE 3 (MODERAT 07/14/2018 Luis Enrique Watti W 250.80 DIABETES MELLITUS WITH OTHER SPECIFIED MANIFESTATIONS, TYPE II OR UNSPECIFIED TYPE, NOT STATED UNCONTROLLED 07/14/2018 Luis Enrique Watti W E11.621 TYPE 2 DIABETES MELLITUS WITH FOOT ULCER 07/17/2018 Luis Enrique Watti W 250.80 DIABETES MELLITUS WITH OTHER SPECIFIED MANIFESTATIONS, TYPE II OR UNSPECIFIED TYPE, NOT STATED UNCONTROLLED 07/17/2018 Maria Guadalupe Watt W E11.621 TYPE 2 DIABETES MELLITUS WITH FOOT ULCER 07/18/2018 W 250.80 DIABETES MELLITUS WITH OTHER SPECIFIED MANIFESTATIONS, TYPE II OR UNSPECIFIED TYPE, NOT STATED UNCONTROLLED 07/18/2018 W E11.621 TYPE 2 DIABETES MELLITUS WITH FOOT ULCER 07/19/2018 W 250.80 DIABETES MELLITUS WITH OTHER SPECIFIED MANIFESTATIONS, TYPE II OR UNSPECIFIED TYPE, NOT STATED UNCONTROLLED 07/19/2018 W E11.621 TYPE 2 DIABETES MELLITUS WITH FOOT ULCER 07/20/2018 ANA BASS MD Ot 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 07/20/2018 ANA BASS MD, Ot E11.42 TYPE 2 DIABETES MELLITUS WITH DIABETIC P 07/20/2018 ANA BASS MD, Ot E11.621 TYPE 2 DIABETES MELLITUS WITH FOOT ULCER 07/20/2018 ANA BASS MD Ot I70.235 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 07/20/2018 ANA BASS MD, Ot L97.512 NON-PRS CHRONIC ULCER OTH PRT RIGHT FOOT 07/20/2018 ANA BASS MD, Ot N18.3 CHRONIC KIDNEY DISEASE, STAGE 3 (MODERAT 07/21/2018 ANA BASS MD, Ot 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 07/21/2018 ANA BASS MD, Ot E11.42 TYPE 2 DIABETES MELLITUS WITH DIABETIC P 07/21/2018 ANA BASS MD, Ot E11.621 TYPE 2 DIABETES MELLITUS WITH FOOT ULCER 07/21/2018 ANA BASS MD, Ot E11.65 TYPE 2 DIABETES MELLITUS WITH HYPERGLYCE 07/21/2018 ANA BASS MD, Ot I70.235 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 07/21/2018 SHELIA PATEL, ANA Darnell Ot L97.512 NON-PRS CHRONIC ULCER OTH PRT RIGHT FOOT 07/21/2018 ANA BASS MD, Ot N18.3 CHRONIC KIDNEY DISEASE, STAGE 3 (MODERAT 07/21/2018 Maria Guadalupe Watt W 250.80 DIABETES MELLITUS WITH OTHER SPECIFIED MANIFESTATIONS, TYPE II OR UNSPECIFIED TYPE, NOT STATED UNCONTROLLED 07/21/2018 Maria Guadalupe Watt W E11.621 TYPE 2 DIABETES MELLITUS WITH FOOT ULCER 07/22/2018 Maria Guadalupe Watt W 250.80 DIABETES MELLITUS WITH OTHER SPECIFIED MANIFESTATIONS, TYPE II OR UNSPECIFIED TYPE, NOT STATED UNCONTROLLED 07/22/2018 Maria Guadalupe Watt W E11.621 TYPE 2 DIABETES MELLITUS WITH FOOT ULCER 07/23/2018 Maria Guadalupe Watt W 250.80 DIABETES MELLITUS WITH OTHER SPECIFIED MANIFESTATIONS, TYPE II OR UNSPECIFIED TYPE, NOT STATED UNCONTROLLED 07/23/2018 Maria Guadalupe Watt E11.621 TYPE 2 DIABETES MELLITUS WITH FOOT ULCER 07/25/2018 Maria Guadalupe Watt W 041.12 METHICILLIN RESISTANT STAPHYLOCOCCUS AUREUS INFECTION IN CONDITIONS CLASSIFIED ELSEWHERE AND OF UNSPECIFIED SITE 07/25/2018 Maria Guadalupe Watt W 250.80 DIABETES MELLITUS WITH OTHER SPECIFIED MANIFESTATIONS, TYPE II OR UNSPECIFIED TYPE, NOT STATED UNCONTROLLED 07/25/2018 Maria Guadalupe Watt W 682.6 CELLULITIS AND ABSCESS OF LEG, EXCEPT FOOT 07/25/2018 Maria Guadalupe Watt W 707.15 ULCER OF OTHER PART OF FOOT 07/25/2018 Maria Guadalupe Watt W B95.62 METHICILLIN RESIS STAPH INFCT CAUSING DISEASES CLASSD ELSWHR 07/25/2018 Maria Guadalupe Watt E11.621 TYPE 2 DIABETES MELLITUS WITH FOOT ULCER 07/25/2018 Maria Guadalupe Watt W L03.115 CELLULITIS OF RIGHT LOWER LIMB 07/25/2018 Maria Guadalupe Watt L97.514 NON- PRS CHRONIC ULCER OTH PRT RIGHT FOOT W NECROSIS OF BONE 07/25/2018 Maria Guadalupe Watt V58.62 LONG- TERM (CURRENT) USE OF ANTIBIOTICS 07/25/2018 Maria Guadalupe Watt Z79.2 LONGTERM (CURRENT) USE OF ANTIBIOTICS 07/26/2018 Maria Guadalupe Watt W 250.80 DIABETES MELLITUS WITH OTHER SPECIFIED MANIFESTATIONS, TYPE II OR UNSPECIFIED TYPE, NOT STATED UNCONTROLLED 07/26/2018 WattLuis Enriquei W E11.621 TYPE 2 DIABETES MELLITUS WITH FOOT ULCER 07/27/2018 WattLuis Enriquei W 250.80 DIABETES MELLITUS WITH OTHER SPECIFIED MANIFESTATIONS, TYPE II OR UNSPECIFIED TYPE, NOT STATED UNCONTROLLED 07/27/2018 WattLuis Enriquei W E11.621 TYPE 2 DIABETES MELLITUS WITH FOOT ULCER 07/28/2018 ERNIE CHANDRA R BAR WAITER/WAITRESS Ot 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 07/28/2018 ERNIE CHANDRA R BAR WAITER/WAITRESS Ot E11.42 TYPE 2 DIABETES MELLITUS WITH DIABETIC P 07/28/2018 ERNIE CHANDRA R BAR WAITER/WAITRESS Ot E11.621 TYPE 2 DIABETES MELLITUS WITH FOOT ULCER 07/28/2018 ERNIE CHANDRA BAR WAITER/WAITRESS Ot I70.235 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 07/28/2018 ERNIE CHANDRA BAR WAITER/WAITRESS Ot L97.512 NON-PRS CHRONIC ULCER OTH PRT RIGHT FOOT 07/28/2018 ERNIE CHANDRA R BAR WAITER/WAITRESS Ot N18.3 CHRONIC KIDNEY DISEASE, STAGE 3 (MODERAT 07/28/2018 WattLuis Enrique bassi W 250.80 DIABETES MELLITUS WITH OTHER SPECIFIED MANIFESTATIONS, TYPE II OR UNSPECIFIED TYPE, NOT STATED UNCONTROLLED 07/28/2018 WattLuis Enriquei W E11.621 TYPE 2 DIABETES MELLITUS WITH FOOT ULCER 07/29/2018 WattLuis Enriquei W 250.80 DIABETES MELLITUS WITH OTHER SPECIFIED MANIFESTATIONS, TYPE II OR UNSPECIFIED TYPE, NOT STATED UNCONTROLLED 07/29/2018 Alysa Maria Guadalupe W E11.621 TYPE 2 DIABETES MELLITUS WITH FOOT ULCER 07/30/2018 WattLuis Enriquei W 250.80 DIABETES MELLITUS WITH OTHER SPECIFIED MANIFESTATIONS, TYPE II OR UNSPECIFIED TYPE, NOT STATED UNCONTROLLED 07/30/2018 Alysa Maria Guadalupe W E11.621 TYPE 2 DIABETES MELLITUS WITH FOOT ULCER 07/31/2018 WattLuis Enriquei W 250.80 DIABETES MELLITUS WITH OTHER SPECIFIED MANIFESTATIONS, TYPE II OR UNSPECIFIED TYPE, NOT STATED UNCONTROLLED 07/31/2018 Maria Guadalupe Watt W E11.621 TYPE 2 DIABETES MELLITUS WITH FOOT ULCER 08/01/2018 ANA BASS MD Ot 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 08/01/2018 ANA BASS MD Ot E11.42 TYPE 2 DIABETES MELLITUS WITH DIABETIC P 08/01/2018 ANA BASS MD Ot E11.621 TYPE 2 DIABETES MELLITUS WITH FOOT ULCER 08/01/2018 ANA BASS MD Ot I70.235 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 08/01/2018 ANA BASS MD, Ot L97.512 NON-PRS CHRONIC ULCER OTH PRT RIGHT FOOT 08/01/2018 ANA BASS MD Ot M89.8X7 OTHER SPECIFIED DISORDERS OF BONE, ANKLE 08/01/2018 ANA BASS MD Ot N18.3 CHRONIC KIDNEY DISEASE, STAGE 3 (MODERAT 08/01/2018 ANA BASS MD Ot 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 08/01/2018 ANA BASS MD Ot E11.42 TYPE 2 DIABETES MELLITUS WITH DIABETIC P 08/01/2018 ANA BASS MD, Ot E11.621 TYPE 2 DIABETES MELLITUS WITH FOOT ULCER 08/01/2018 ANA BASS MD, Ot E11.65 TYPE 2 DIABETES MELLITUS WITH HYPERGLYCE 08/01/2018 ANA BASS MD Ot I70.235 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 08/01/2018 ANA BASS MD, Ot L97.512 NON-PRS CHRONIC ULCER OTH PRT RIGHT FOOT 08/01/2018 ANA BASS MD Ot N18.3 CHRONIC KIDNEY DISEASE, STAGE 3 (MODERAT 08/01/2018 ANA BASS MD Ot 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 08/01/2018 ANA BASS MD Ot E11.42 TYPE 2 DIABETES MELLITUS WITH DIABETIC P 08/01/2018 ANA BASS MD Ot E11.621 TYPE 2 DIABETES MELLITUS WITH FOOT ULCER 08/01/2018 ANA BASS MD Ot E11.65 TYPE 2 DIABETES MELLITUS WITH HYPERGLYCE 08/01/2018 ANA BASS MD Ot I70.235 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 08/01/2018 ANA BASS MD Ot L97.512 NON-PRS CHRONIC ULCER OTH PRT RIGHT FOOT 08/01/2018 ANA BASS MD Ot N18.3 CHRONIC KIDNEY DISEASE, STAGE 3 (MODERAT 08/01/2018 ANA BASS MD Ot 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 08/01/2018 ANA BASS MD Ot E11.42 TYPE 2 DIABETES MELLITUS WITH DIABETIC P 08/01/2018 ANA BASS MD, Ot E11.621 TYPE 2 DIABETES MELLITUS WITH FOOT ULCER 08/01/2018 ANA BASS MD, Ot E11.65 TYPE 2 DIABETES MELLITUS WITH HYPERGLYCE 08/01/2018 ANA BASS MD, Ot I70.235 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 08/01/2018 ANA BASS MD, Ot L97.512 NON-PRS CHRONIC ULCER OTH PRT RIGHT FOOT 08/01/2018 ANA BASS MD, Ot N18.3 CHRONIC KIDNEY DISEASE, STAGE 3 (MODERAT 08/01/2018 Luis Enrique Watti W 250.80 DIABETES MELLITUS WITH OTHER SPECIFIED MANIFESTATIONS, TYPE II OR UNSPECIFIED TYPE, NOT STATED UNCONTROLLED 08/01/2018 Luis Enrique Wattmercy Juarez E11.621 TYPE 2 DIABETES MELLITUS WITH FOOT ULCER 08/02/2018 Luis Enrique Watti W 250.80 DIABETES MELLITUS WITH OTHER SPECIFIED MANIFESTATIONS, TYPE II OR UNSPECIFIED TYPE, NOT STATED UNCONTROLLED 08/02/2018 Watt, Maria Guadalupe W E11.621 TYPE 2 DIABETES MELLITUS WITH FOOT ULCER 08/04/2018 Luis Enrique Watti W 250.80 DIABETES MELLITUS WITH OTHER SPECIFIED MANIFESTATIONS, TYPE II OR UNSPECIFIED TYPE, NOT STATED UNCONTROLLED 08/04/2018 Luis Enrique Watti Ann E11.621 TYPE 2 DIABETES MELLITUS WITH FOOT ULCER Procedures There is no data. Results Test Result Range Thyroid Stimulating Hormone - 12/20/16 13:03 TSH 1.48 mIU/mL 0.32-5.00 Urinalysis - 12/20/16 14:12 Icotest Negative Negative Urine Volume Urine Volume Sufficient (10mL) Urine-Appearance Clear Clear Urine-Bilirubin Negative Negative Urine-Blood Negative Negative Urine-Color [place] Colorless-Lt. Yellow Urine-Glucose Negative Negative Urine-Ketones 1+ Negative Urine-Leukocytes Negative Negative Urine-Mucus 2+ Urine-Nitrite Negative Negative Urine-pH 5.5 5-8.5 Urine-Protein 3+ Negative Urine-Specific [place] 1.025 1.000-1.030 Urine-WBC Rare/HPF Urobilinogen >=8.0 E.U./dL 0.2-1.0 Thyroid Stimulating Hormone - 04/14/17 08:24 TSH 1.69 mIU/mL 0.32-5.00 Microalbumin - 05/20/17 09:39 Microalb 996.0 mg/L 0.0-20.0 Lipid Panel - 07/19/17 08:04 C/HDL 7.6 3.7-6.7 Cholesterol 221 mg/dL 100-240 HDL 29 mg/dL 30-85 LDL-Calculated 171 mg/dL 0-100 Trig 106 mg/dL 35-160 VLDL 21 mg/dL 0-42 BMP - 12/29/17 16:45 Anion Gap 15 6-14 BUN 20 mg/dL 5-25 Calcium 8.9 mg/dL 8.3-10.4 Chloride 99 mmol/L 95-114 CO2 26 mEq/L 22-33 Creat 1.32 mg/dL 0.50-1.50 eGFR 53 mL/min/1.73m2 >59 Glucose 165 mg/dL 70-110 Osmo 285 280-295 Potassium 4.7 mmol/L 3.5-5.3 Sodium 135 mmol/L 134-148 Sputum Culture - 12/29/17 16:45 PRELIM CULTURE RESULTS Abundant Apparent Normal Gwen. FINAL CULTURE RESULTS Abundant Apparent Normal Gwen. MEDIA PLATED Setup at 17:32 on 12/29/2017 Comprehensive Metabolic Panel - 01/31/18 13:44 Albumin 3.9 g/dL 3.6-5.1 ALP 80 U/L 35-130 ALT 12 U/L 6-45 Anion Gap 12 6-14 AST 15 U/L 2-40 BUN 21 mg/dL 5-25 Calcium 9.3 mg/dL 8.3-10.4 Chloride 103 mmol/L 95-114 CO2 26 mEq/L 22-33 Creat 1.31 mg/dL 0.50-1.50 eGFR 54 mL/min/1.73m2 >59 Globulin 3.1 g/dL 2.3-3.5 Glucose 190 mg/dL 70-110 Osmo 289 280-295 Potassium 4.7 mmol/L 3.5-5.3 Sodium 136 mmol/L 134-148 TBil 0.5 mg/dL 0.2-1.2 TP 7.0 g/dL 6.0-8.3 Thyroid Stimulating Hormone - 06/13/18 06:33 TSH 0.85 mIU/mL 0.32-5.00 L. pneumophila Serogp 1 Ur Ag - 06/26/18 12:40 L. pneumophila Serogp 1 Ur Ag Note Sed Rate - 06/26/18 12:40 Sed Rate 92 mm/hr 0-9 Urinalysis - 06/26/18 12:40 Icotest N/A Negative Urine Crystals Amorphous Material: few/HPF Urine Volume Urine Volume Sufficient (10mL) Urine Yeast No Yeast present Urine-Appearance Slightly Cloudy Clear Urine-Bacteria Trace Urine-Bilirubin Negative Negative Urine-Blood Negative Negative Urine-Color Yellow Colorless-Lt. Yellow Urine-Epithelial Cells 0-5/HPF Urine-Glucose 1+ Negative Urine-Ketones 1+ Negative Urine-Leukocytes Negative Negative Urine-Mucus 3+ Urine-Nitrite Negative Negative Urine-Other Urine Saved if Culture Needed (48hrs from time of collection) Urine-pH 5.5 5-8.5 Urine-Protein 3+ Negative Urine-RBC Rare/HPF Urine-Specific [place] 1.020 1.000-1.030 Urine-WBC Rare/HPF Urobilinogen 2.0 0.2-1.0 Blood Culture - 06/26/18 12:40 PRELIM CULTURE RESULTS Blood Culture Negative, No Growth Day 1 FINAL CULTURE RESULTS Blood Culture Negative, No Growth Day 5 MEDIA PLATED Setup at 13:00 on 06/26/2018 Blood Culture Media Position A11 CULTURE SOURCE Left AC IV Start Urine Culture - 06/26/18 12:40 PRELIM CULTURE RESULTS No Growth 24 hours FINAL CULTURE RESULTS No Growth 48 hours CULTURE SOURCE CC Legionella Urine Antigen - 06/26/18 12:40 Legionella pneumophila Urinary Antigen NEGATIVE NEGATIVE Blood Culture - 06/26/18 12:50 PRELIM CULTURE RESULTS Blood Culture Negative, No Growth Day 1 MEDIA PLATED Setup at 13:00 on 06/26/2018 Blood Culture Media Position A12 CULTURE SOURCE Left AC, from IV catheter, no Tourniquet Other Culture - 06/26/18 12:55 PRELIM CULTURE RESULTS Scant Gram Negative, MERCED/ID to [id number] Coagulase POSITIVE Staphylococci, MERCED/ID to Follow MEDIA PLATED Setup at 13:00 on 06/26/2018 Sensi - 06/26/18 12:55 FINAL CULTURE RESULTS Morganella morganii (Isolate 1) Ampicillin/Sulbactam >16/8 Ampicillin >16 Amoxicillin/K Clavulanate >16/8 Ceftriaxone 32 Ciprofloxacin <=1 Nitrofurantoin 64 Gentamicin >8 Levofloxacin <=2 Trimethoprim/ Sulfamethoxazole <=2/38 Tetracycline >8 Amikacin >32 Aztreonam 16 Ceftazidime >16 Ceftazidime/K Clavulanate >2 Cephalothin >16 Cefotaxime 16 Cefotaxime/K Clavulanate >4 Cefoxitin 16 Cefazolin >16 Cefepime <=8 Cefuroxime >16 Ertapenem <=1 Imipenem <=4 Meropenem <=4 Piperacillin/Tazobactam <=16 Piperacillin 32 Tigecycline <=2 Tobramycin >8 Sensi - 06/26/18 12:55 Ampicillin/Sulbactam 16/8 Ampicillin >8 Amoxicillin/K Clavulanate >4/2 Ceftriaxone >32 Clindamycin <=0.5 Cefoxitin Screen >4 Ciprofloxacin <=1 Daptomycin <=0.5 Erythromycin <=0.5 Nitrofurantoin <=32 Gentamicin <=4 Gentamicin Synergy Screen N/R Inducible Clindamycin N/R Levofloxacin <=1 Linezolid 2 Moxifloxacin <=0.5 Oxacillin >2 Penicillin >8 Rifampin <=1 Streptomycin Synergy N/R Synercid <=0.5 Trimethoprim/ Sulfamethoxazole <=0.5/9.5 Tetracycline <=4 Vancomycin 2 FINAL CULTURE RESULTS Methicillin Resistant Staphylococcus aureus (Isolate 2) Comprehensive Metabolic Panel - 06/27/18 05:15 Albumin 2.7 g/dL 3.6-5.1 ALP 57 U/L 35-130 ALT 10 U/L 6-45 Anion Gap 13 6-14 AST 11 U/L 2-40 BUN 20 mg/dL 5-25 Calcium 8.2 mg/dL 8.3-10.4 Chloride 105 mmol/L 95-114 CO2 23 mEq/L 22-33 Creat 1.14 mg/dL 0.50-1.50 eGFR 63 mL/min/1.73m2 >59 Globulin 2.7 g/dL 2.3-3.5 Glucose 166 mg/dL 70-110 Osmo 287 280-295 Potassium 4.8 mmol/L 3.5-5.3 Sodium 136 mmol/L 134-148 TBil 0.4 mg/dL 0.2-1.2 TP 5.4 g/dL 6.0-8.3 Comprehensive Metabolic Panel - 06/28/18 05:20 Albumin 2.6 g/dL 3.6-5.1 ALP 54 U/L 35-130 ALT 9 U/L 6-45 Anion Gap 12 6-14 AST 10 U/L 2-40 BUN 16 mg/dL 5-25 Calcium 7.6 mg/dL 8.3-10.4 Chloride 108 mmol/L 95-114 CO2 23 mEq/L 22-33 Creat 0.93 mg/dL 0.50-1.50 eGFR 79 mL/min/1.73m2 >59 Globulin 2.7 g/dL 2.3-3.5 Glucose 142 mg/dL 70-110 Osmo 288 280-295 Potassium 4.5 mmol/L 3.5-5.3 Sodium 138 mmol/L 134-148 TBil 0.2 mg/dL 0.2-1.2 TP 5.3 g/dL 6.0-8.3 Vancomycin Trough - 06/28/18 15:30 Vanco Trough 4.1 ug/mL 10.0-20.0 Comprehensive Metabolic Panel - 06/29/18 04:40 Albumin 2.7 g/dL 3.6-5.1 ALP 58 U/L 35-130 ALT 10 U/L 6-45 Anion Gap 12 6-14 AST 11 U/L 2-40 BUN 13 mg/dL 5-25 Calcium 8.4 mg/dL 8.3-10.4 Chloride 105 mmol/L 95-114 CO2 25 mEq/L 22-33 Creat 0.85 mg/dL 0.50-1.50 eGFR 88 mL/min/1.73m2 >59 Globulin 2.9 g/dL 2.3-3.5 Glucose 131 mg/dL 70-110 Osmo 287 280-295 Potassium 4.4 mmol/L 3.5-5.3 Sodium 138 mmol/L 134-148 TBil 0.3 mg/dL 0.2-1.2 TP 5.6 g/dL 6.0-8.3 Vancomycin Trough - 06/29/18 17:00 Vanco Trough 11.4 ug/mL 10.0-20.0 Comprehensive Metabolic Panel - 06/30/18 05:00 Albumin 2.9 g/dL 3.6-5.1 ALP 60 U/L 35-130 ALT 17 U/L 6-45 Anion Gap 12 6-14 AST 22 U/L 2-40 BUN 14 mg/dL 5-25 Calcium 8.6 mg/dL 8.3-10.4 Chloride 103 mmol/L 95-114 CO2 26 mEq/L 22-33 Creat 1.02 mg/dL 0.50-1.50 eGFR 71 mL/min/1.73m2 >59 Globulin 3.1 g/dL 2.3-3.5 Glucose 152 mg/dL 70-110 Osmo 286 280-295 Potassium 4.4 mmol/L 3.5-5.3 Sodium 137 mmol/L 134-148 TBil 0.3 mg/dL 0.2-1.2 TP 6.0 g/dL 6.0-8.3 Comprehensive Metabolic Panel - 07/01/18 05:20 Albumin 2.8 g/dL 3.6-5.1 ALP 64 U/L 35-130 ALT 23 U/L 6-45 Anion Gap 13 6-14 AST 30 U/L 2-40 BUN 17 mg/dL 5-25 Calcium 8.6 mg/dL 8.3-10.4 Chloride 104 mmol/L 95-114 CO2 25 mEq/L 22-33 Creat 0.96 mg/dL 0.50-1.50 eGFR 77 mL/min/1.73m2 >59 Globulin 2.9 g/dL 2.3-3.5 Glucose 119 mg/dL 70-110 Osmo 286 280-295 Potassium 4.5 mmol/L 3.5-5.3 Sodium 137 mmol/L 134-148 TBil 0.2 mg/dL 0.2-1.2 TP 5.7 g/dL 6.0-8.3 Vancomycin Trough - 07/01/18 16:54 Vanco Trough 18.1 ug/mL 10.0-20.0 Comprehensive Metabolic Panel - 07/02/18 05:45 Albumin 2.9 g/dL 3.6-5.1 ALP 64 U/L 35-130 ALT 30 U/L 6-45 Anion Gap 12 6-14 AST 34 U/L 2-40 BUN 18 mg/dL 5-25 Calcium 8.6 mg/dL 8.3-10.4 Chloride 105 mmol/L 95-114 CO2 24 mEq/L 22-33 Creat 0.90 mg/dL 0.50-1.50 eGFR 82 mL/min/1.73m2 >59 Globulin 3.0 g/dL 2.3-3.5 Glucose 109 mg/dL 70-110 Osmo 285 280-295 Potassium 4.4 mmol/L 3.5-5.3 Sodium 137 mmol/L 134-148 TBil 0.3 mg/dL 0.2-1.2 TP 5.9 g/dL 6.0-8.3 Comprehensive Metabolic Panel - 07/03/18 04:50 Albumin 2.9 g/dL 3.6-5.1 ALP 66 U/L 35-130 ALT 32 U/L 6-45 Anion Gap 12 6-14 AST 30 U/L 2-40 BUN 19 mg/dL 5-25 Calcium 8.7 mg/dL 8.3-10.4 Chloride 103 mmol/L 95-114 CO2 26 mEq/L 22-33 Creat 1.09 mg/dL 0.50-1.50 eGFR 66 mL/min/1.73m2 >59 Globulin 3.1 g/dL 2.3-3.5 Glucose 173 mg/dL 70-110 Osmo 287 280-295 Potassium 4.6 mmol/L 3.5-5.3 Sodium 136 mmol/L 134-148 TBil 0.2 mg/dL 0.2-1.2 TP 6.0 g/dL 6.0-8.3 Vancomycin Trough - 07/03/18 17:00 Vanco Trough 16.1 ug/mL 10.0-20.0 Comprehensive Metabolic Panel - 07/04/18 05:05 Albumin 3.0 g/dL 3.6-5.1 ALP 63 U/L 35-130 ALT 28 U/L 6-45 Anion Gap 14 6-14 AST 24 U/L 2-40 BUN 20 mg/dL 5-25 Calcium 8.8 mg/dL 8.3-10.4 Chloride 102 mmol/L 95-114 CO2 25 mEq/L 22-33 Creat 1.06 mg/dL 0.50-1.50 eGFR 68 mL/min/1.73m2 >59 Globulin 3.1 g/dL 2.3-3.5 Glucose 131 mg/dL 70-110 Osmo 285 280-295 Potassium 4.8 mmol/L 3.5-5.3 Sodium 136 mmol/L 134-148 TBil 0.2 mg/dL 0.2-1.2 TP 6.1 g/dL 6.0-8.3 Vancomycin Trough - 07/07/18 06:54 Vanco Trough 19.5 ug/mL 10.0-20.0 Comprehensive Metabolic Panel - 07/07/18 06:54 Albumin 3.4 g/dL 3.6-5.1 ALP 71 U/L 35-130 ALT 19 U/L 6-45 Anion Gap 14 6-14 AST 16 U/L 2-40 BUN 25 mg/dL 5-25 Calcium 9.3 mg/dL 8.3-10.4 Chloride 101 mmol/L 95-114 CO2 27 mEq/L 22-33 Creat 1.36 mg/dL 0.50-1.50 eGFR 51 mL/min/1.73m2 >59 Globulin 3.3 g/dL 2.3-3.5 Glucose 155 mg/dL 70-110 Osmo 290 280-295 Potassium 4.5 mmol/L 3.5-5.3 Sodium 137 mmol/L 134-148 TBil 0.2 mg/dL 0.2-1.2 TP 6.7 g/dL 6.0-8.3 Comprehensive Metabolic Panel - 07/10/18 06:44 Albumin 3.4 g/dL 3.6-5.1 ALP 67 U/L 35-130 ALT 13 U/L 6-45 Anion Gap 14 6-14 AST 14 U/L 2-40 BUN 20 mg/dL 5-25 Calcium 9.2 mg/dL 8.3-10.4 Chloride 100 mmol/L 95-114 CO2 27 mEq/L 22-33 Creat 1.14 mg/dL 0.50-1.50 eGFR 63 mL/min/1.73m2 >59 Globulin 3.0 g/dL 2.3-3.5 Glucose 179 mg/dL 70-110 Osmo 288 280-295 Potassium 4.7 mmol/L 3.5-5.3 Sodium 136 mmol/L 134-148 TBil 0.3 mg/dL 0.2-1.2 TP 6.4 g/dL 6.0-8.3 Vancomycin Trough - 07/10/18 06:44 Vanco Trough 13.0 ug/mL 10.0-20.0 Sed Rate - 07/12/18 06:46 Sed Rate 36 mm/hr 0-9 Comprehensive Metabolic Panel - 07/17/18 06:53 Albumin 3.5 g/dL 3.6-5.1 ALP 69 U/L 35-130 ALT 11 U/L 6-45 Anion Gap 14 6-14 AST 15 U/L 2-40 BUN 22 mg/dL 5-25 Calcium 9.3 mg/dL 8.3-10.4 Chloride 101 mmol/L 95-114 CO2 26 mEq/L 22-33 Creat 1.07 mg/dL 0.50-1.50 eGFR 67 mL/min/1.73m2 >59 Globulin 3.2 g/dL 2.3-3.5 Glucose 130 mg/dL 70-110 Osmo 286 280-295 Potassium 4.9 mmol/L 3.5-5.3 Sodium 136 mmol/L 134-148 TBil 0.3 mg/dL 0.2-1.2 TP 6.7 g/dL 6.0-8.3 Vancomycin Trough - 07/21/18 06:45 Vanco Trough 11.7 ug/mL 10.0-20.0 Vancomycin Trough - 07/24/18 06:41 Vanco Trough 12.7 ug/mL 10.0-20.0 Vancomycin Trough - 07/28/18 06:30 Vanco Trough 12.8 ug/mL 10.0-20.0 Vancomycin Trough - 07/31/18 06:35 Vanco Trough 12.4 ug/mL 10.0-20.0 Comprehensive Metabolic Panel - 08/04/18 06:40 Albumin 3.6 g/dL 3.6-5.1 ALP 61 U/L 35-130 ALT 11 U/L 6-45 Anion Gap 13 6-14 AST 14 U/L 2-40 BUN 22 mg/dL 5-25 Calcium 9.4 mg/dL 8.3-10.4 Chloride 103 mmol/L 95-114 CO2 28 mEq/L 22-33 Creat 1.13 mg/dL 0.50-1.50 eGFR 63 mL/min/1.73m2 >59 Globulin 3.0 g/dL 2.3-3.5 Glucose 152 mg/dL 70-110 Osmo 293 280-295 Potassium 4.6 mmol/L 3.5-5.3 Sodium 139 mmol/L 134-148 TBil 0.4 mg/dL 0.2-1.2 TP 6.6 g/dL 6.0-8.3 Encounters ACCT No. Visit Date/Time Discharge Status Pt. Type Provider Facility Loc./Unit Complaint [id number] 06/29/2018 14:17:00 Document Registration [id number] 08/03/2018 14:15:00 08/03/2018 23:59:59 CLS Preadmit MIKA MOROCHO MD [facility] CARD OCCLUSION AND STENOSIS OF BILATERAL CAROTID ARTERI [id number] 08/01/2018 13:54:00 08/01/2018 23:59:59 CLS Outpatient ANA BASS MD [facility] [id number] 07/31/2018 11:51:00 07/31/2018 23:59:59 CLS Outpatient ANA BASS MD [facility] RAD ATHEROSCLEROSIS OF [place] ARTERIES RT LEG [id number] 07/26/2018 14:47:00 07/26/2018 23:59:59 CLS Outpatient ERNIE CHANDRA APRN [facility] [id number] 07/17/2018 15:09:00 07/17/2018 23:59:59 CLS Outpatient ANA BASS MD [facility] [id number] 07/13/2018 14:24:00 07/13/2018 23:59:59 CLS Outpatient ANA BASS MD [facility] RAD E11.621,E11.42 [id number] 07/10/2018 15:01:00 07/10/2018 23:59:59 CLS Outpatient ANA BASS MD [facility] [id number] 07/05/2018 12:57:00 07/05/2018 23:59:59 CLS Outpatient ANA BASS MD [facility] [id number] 08/09/2018 14:00:00 PEN Preadmit MIKA MOROCHO MD [facility] CATH HTN [id number] 08/08/2018 13:47:00 PEN Preadmit ANA BASS MD [facility] [id number] 08/07/2018 07:52:00 ACT Outpatient MIKA MOROCHO MD [facility] CARD OCCLUSION AND STENOSIS OF BILATERAL CAROTID ARTERI [id number] 08/05/2018 06:08:00 08/05/2018 20:05:00 DIS Outpatient Maria Guadalupe Watt [id number] 08/04/2018 06:07:00 08/04/2018 20:20:00 DIS Outpatient Watt, Maria Guadalupe [id number] 08/03/2018 06:15:00 08/03/2018 20:10:00 DIS Outpatient Watt, Maria Guadalupe [id number] 08/02/2018 06:17:00 08/02/2018 20:00:00 DIS Outpatient Watt, Maria Guadalupe [id number] 08/01/2018 06:16:00 08/01/2018 20:05:00 DIS Outpatient Watt, Maria Guadalupe [id number] 07/31/2018 06:11:00 07/31/2018 20:10:00 DIS Outpatient Watt, Maria Guadalupe [id number] 07/30/2018 06:16:00 07/30/2018 20:45:00 DIS Outpatient Watt, Maria Guadalupe [id number] 07/29/2018 06:12:00 07/29/2018 20:20:00 DIS Outpatient Watt, Maria Guadalupe [id number] 07/28/2018 06:18:00 07/28/2018 20:20:00 DIS Outpatient Watt, Maria Guadalupe [id number] 07/27/2018 06:20:00 07/27/2018 20:10:00 DIS Outpatient Watt, Maria Guadalupe [id number] 07/26/2018 06:21:00 07/26/2018 20:20:00 DIS Outpatient Watt, Maria Guadalupe [id number] 07/25/2018 06:20:00 07/25/2018 21:00:00 DIS Outpatient Watt, Maria Guadalupe [id number] 07/24/2018 06:23:00 07/24/2018 20:10:00 DIS Outpatient Watt, Maria Guadalupe [id number] 07/23/2018 06:28:00 07/23/2018 20:25:00 DIS Outpatient Watt, Maria Guadalupe [id number] 07/22/2018 06:28:00 07/22/2018 20:50:00 DIS Outpatient Watt, Maria Guadalupe [id number] 07/21/2018 06:25:00 07/21/2018 19:30:00 DIS Outpatient Watt, Maria Guadalupe [id number] 07/20/2018 06:21:00 07/20/2018 20:27:00 DIS Outpatient Watt, Maria Guadalupe [id number] 07/17/2018 06:22:00 07/17/2018 20:10:00 DIS Outpatient Watt, Maria Guadalupe [id number] 07/16/2018 06:28:00 07/16/2018 23:59:00 DIS Outpatient Watt, Maria Guadalupe [id number] 07/15/2018 06:28:00 07/15/2018 19:45:00 DIS Outpatient Watt, Maria Guadalupe [id number] 07/15/2018 18:28:00 07/15/2018 18:28:00 CAN Outpatient Watt, Maria Guadalupe [id number] 07/14/2018 06:31:00 07/14/2018 20:25:00 DIS Outpatient Watt, Maria Guadalupe [id number] 07/13/2018 06:30:00 07/13/2018 08:45:00 DIS Outpatient Watt, Maria Guadalupe [id number] 07/12/2018 06:33:00 07/12/2018 20:00:00 DIS Outpatient Watt, Maria Guadalupe [id number] 07/11/2018 06:39:00 07/11/2018 21:30:00 DIS Outpatient Watt, Maria Guadalupe [id number] 07/10/2018 06:35:00 07/10/2018 19:50:00 DIS Outpatient Watt, Maria Guadalupe [id number] 07/09/2018 06:42:00 07/09/2018 20:50:00 DIS Outpatient Watt, Maria Guadalupe [id number] 07/08/2018 18:43:00 07/08/2018 20:30:00 DIS Outpatient Alysa, Maria Guadalupe [id number] 07/08/2018 06:43:00 07/08/2018 08:05:00 DIS Outpatient Maria Guadalupe Watt [id number] 07/07/2018 18:47:00 07/07/2018 21:00:00 DIS Outpatient Watt, Maria Guadalupe [id number] 07/07/2018 06:47:00 07/07/2018 09:55:00 DIS Outpatient Watt, Maria Guadalupe [id number] 07/06/2018 06:45:00 07/06/2018 21:30:00 DIS Outpatient Alysa, Maria Guadalupe [id number] 07/05/2018 18:39:00 07/05/2018 21:16:00 DIS Outpatient Watt, Maria Guadalupe [id number] 07/05/2018 06:41:00 07/05/2018 10:20:00 DIS Outpatient Alysa, Maria Guadalupe [id number] 06/30/2018 08:17:00 07/04/2018 17:49:00 DIS Inpatient Watt, [facility] MED-[facility]G [id number] 06/26/2018 17:55:00 06/30/2018 08:17:[address] [facility] MED-SURG [id number] 06/13/2018 06:27:00 06/13/2018 23:59:00 DIS Outpatient Maria Guadalupe Watt [id number] 01/31/2018 13:17:00 01/31/2018 23:59:00 DIS Outpatient Maria Guadalupe Watt [id number] 12/29/2017 16:33:00 12/29/2017 17:55:00 DIS Outpatient Jovana Lani [id number] 07/19/2017 07:58:00 07/19/2017 23:59:00 DIS Outpatient Maria Guadalupe Watt [id number] 05/20/2017 07:10:00 05/20/2017 23:59:00 DIS Outpatient Maria Guadalupe Watt [id number] 04/14/2017 08:20:00 04/14/2017 23:59:00 DIS Outpatient Maria Guadalupe Watt [id number] 12/20/2016 12:44:00 12/20/2016 14:59:00 DIS Outpatient Jovana Lani [facility] ER [id number] 08/06/2018 06:06:56 Document Registration [id number] 07/19/2018 06:26:30 Document Registration [id number] 07/18/2018 06:27:37 Document Registration [id number] 12/29/2017 16:41:50 Document Registration [id number] 07/28/2018 06:18:00 Document Registration
[2018-08-09] MEDS ORDERED: HEParin (CATH LAB) 2,000 ML IV ONE (11:53)
[2018-08-09] MEDS ORDERED: NS IV 1000 ML 1,000 ML ONE (11:53)
[2018-08-09] MEDS ORDERED: LIDOCAINE 1% INJ 20 ML 20 ML VIAL ONE (11:53)
[2018-08-09] MEDS ORDERED: NS IV 1000 ML 1,000 ML IV SCH (11:59)
[2018-08-09] MEDS ORDERED: CITA20TA9 PO (12:37)
[2018-08-09] MEDS ORDERED: INSU100I29 SQ (12:37)
[2018-08-09] MEDS ORDERED: METF-397 PO (12:37)
[2018-08-09] MEDS ORDERED: AMLO5TAB9 PO (12:37)
[2018-08-09 12:40] LABS: HEMOGLOBIN 13.1 G/DL (13.3-17.7); MEAN PLATELET VOLUME 9.4 FL (7.4-10.4); RED CELL DISTRIBUTION WIDTH 14.2 % (10.0-14.5); WHITE BLOOD COUNT 4.9 10^3/uL (4.3-11.0)
--- NOTE | 2018-08-09 12:48 | Diagnostic Imaging Report ---
EXAMINATION: Portable erect AP chest at 12:28 PM. INDICATION: Preop heart catheterization. FINDINGS: The heart size is at the upper limits of normal but stable when compared to the prior exam of 03/22/2012. The lungs are clear. There is no evidence for failure, pneumonia, or pleural effusion. The mediastinum is not widened. The osseous structures are intact. The right-sided PICC line seen on the prior exam has been removed. There is now a Port-A-Cath in place on the right. The tip of the catheter overlies the proximal superior vena cava. IMPRESSION: 1. There is no evidence for an acute cardiopulmonary abnormality. 2. The right-sided PICC line seen previously has been removed and there is now a right-sided Port-A-Cath in place. Dictated by: Dictated on workstation # [id number]
[2018-08-09 12:49] LABS: BILIRUBIN,URINE NEGATIVE (NEGATIVE); CLARITY,URINE CLEAR; COLOR,URINE YELLOW; GLUCOSE, URINE (UA) NEGATIVE (NEGATIVE); KETONES,URINE NEGATIVE (NEGATIVE); LEUKOCYTE ESTERASE ,URINE NEGATIVE (NEGATIVE); NITRITE,URINE NEGATIVE (NEGATIVE); PH,URINE 7 (5-9); PROTEIN,URINE 4+ (NEGATIVE); UROBILINOGEN,URINE NORMAL (NORMAL)
[2018-08-09 12:52] LABS: PROTHROMBIN TIME PATIENT 13.5 SEC (12.2-14.7)
[2018-08-09 12:56] LABS: BACTERIA,URINE NEGATIVE /HPF; HYALINE CASTS, URINE 0-2 /LPF
[2018-08-09 13:06] LABS: ALANINE AMINOTRANSFERASE 16 U/L (0-55); ALBUMIN 4.1 GM/DL (3.2-4.5); ALKALINE PHOSPHATASE 65 U/L (40-136); BILIRUBIN,TOTAL 0.6 MG/DL (0.1-1.0); BUN/CREATININE RATIO 24; CALCIUM 9.6 MG/DL (8.5-10.1); CARBON DIOXIDE 24 MMOL/L (21-32); CHLORIDE 103 MMOL/L (98-107); CHOLESTEROL 228 MG/DL (< 200); CREATININE SERUM 1.04 MG/DL (0.60-1.30); GFR ESTIMATED > 60; GLUCOSE 109 MG/DL (70-105); HDL CHOLESTEROL 39 MG/DL (40-60); POTASSIUM 4.7 MMOL/L (3.6-5.0); SODIUM 139 MMOL/L (135-145); TOTAL PROTEIN 7.6 GM/DL (6.4-8.2); TRIGLYCERIDES 126 MG/DL (<150); VLDL CHOLESTEROL 25 MG/DL (5-40)
[2018-08-09] MEDS ORDERED: MIDAZOLAM 5 MG/5 ML (VERSED) VIAL ONE (13:43)
[2018-08-09] MEDS ORDERED: fentaNYL INJECTION 100 MCG/2 ML AMP ONE (13:43)
--- NOTE | 2018-08-09 13:59 | Cardiac Procedure Note-CS/ASA ---
Pre-Procedure Note Pre-Op Procedure Note H&P Reviewed The H&P was reviewed, patient examined and no changes noted. Date H&P Reviewed: August 09, 2018 Time H&P Reviewed: 13:58 Conscious Sedation Pre-Proced Time 13:58 ASA Score 3 For ASA 3 and 4: Consider anesthesia and medical clearance. Also, for patients with a history of failed moderate sedation consider anesthesia. Airway Lungs Heart ASA score ASA 1: a normal healthy patient ASA 2: a patient with a mild systemic disease (mid diabetes, controlled hypertension, obesity x ASA 3: a patient with a severe systemic disease that limits activity (angina, COPD, prior Myocardial infarction) ASA 4: a patient with an incapacitating disease that is a constant threat to life (CHF, renal failure) ASA 5: a moribund patient not expected to survive 24 hrs. (ruptured aneurysm) ASA 6: a declared brain- patient whose organs are being harvested. For emergent operations, add the letter E after the classification Mallampati Classification Grade 3 Sedation Plan Analgesia, Amnesia, Plan communicated to team members, Discussed options with patient/fam, Discussed risks with patient/fam The patient is an appropriate candidate to undergo the planned procedure, sedation, and anesthesia. The patient immediately re-assessed prior to indication. MIKA MOROCHO MD August 09, 2018 13:59
[2018-08-09] MEDS ORDERED: HEParin 1000 UNIT/ML (10ML VIAL) FOR BOLUS ONE (14:37)
[2018-08-09] MEDS ORDERED: NITRO DRIP 25000 MCG/D5W 250 ML IV ONE (14:54)
[2018-08-09] MEDS ORDERED: ASPIRIN 325 MG (5 GR) TABLET ONE (15:23)
[2018-08-09] MEDS ORDERED: CLOPIDOGREL 300 MG (PLAVIX) TABLET PO ONE (15:23)
--- NOTE | 2018-08-09 15:59 | Cardiac Cath Report ---
Cardiac Cath Report Physician (s)/Radio Sportscaster (s) Physician MIKA MOROCHO MD Pre-Procedure Diagnosis Pre-Procedure Diagnosis: nonhealing foot ulcer, coronary artery disease Post-Procedure Note Procedure Start Date: August 09, 2018 Name of Procedure: left heart catheterization Bilateral lower extremities runoff Third order Additional imaging LOANS CONSULTANT to the right anterior tibial artery LOANS CONSULTANT to the right posterior tibial artery Findings/Procedure Note PROCEDURE NOTE: 73-year-old gentleman with nonhealing foot ulcer, has abnormal ultrasound, scheduled for peripheral angiogram, underwent stress test which was abnormal subsequently decided to proceed with coronary angiogram and is into the peripheral angiogram. After explaining the procedure to the patient, all pros and cons were explained, all questions were answered. The patient signed the consent and then he was placed on the cardiac catheterization laboratory. Groin was prepped SL fashion local anesthesia was used. Sheath placed in the left femoral artery, combination of right and left Jeremie catheter were used to access the right and left coronary system, multiple views were obtained. Pigtail catheter advanced to the left ventricular cavity, left ventricular gram was done. Using the Jeremie right then the rim catheter and straight catheter and 2 g was done to the right leg showed mild disease down to the trifurcation with severe stenosis at the anterior tibial artery at multiple segment and severe stenosis at the tibial peroneal trunk and posterior tibial artery, 5000 units of heparin were given then I exchanged this sheath into long 6 Kyrgyz sheath, a long straight catheter advanced to the popliteal artery and DSA imaging was acquired to the trifurcation and at the foot level then recommend wire was advanced in the anterior tibial artery and balloon angioplasty using [place] 2.5 x 1 20 mm to the proximal and mid anterior tibial artery with reduction of the 90 percent stenosis and to 50 percent stenosis. The wire and balloon were retracted then advanced into posterior tibial artery and the balloon was inflated again with reduction of the 90 percent stenosis of the tibial peroneal trunk into 50 percent stenosis, posterior tibial artery has severe stenosis and the peroneal artery has severe stenosis. Sheath was exchanged into short 6 Kyrgyz sheath and pigtail catheter was advanced to the bifurcation and the bifurcation evaluated showing no significant complication. Runoff of the right leg was done through the sheath which showed severe stenosis below the trifurcation At the end of the procedure the sheath was removed. Closure device FINDINGS: Hemodynamics LV 139/11, end-diastolic pressure of 11 Aorta 126/52 mean of 82 ANATOMY: Left Main has mild disease nonobstructive disease Left Anterior Descending has severe stenosis proximal and midportion, first diagonal artery has severe proximal stenosis Left Circumflex has moderate stenosis proximally, the first obtuse marginal/ramus intermedius has severe proximal stenosis Right Coronory Artery has multiple segment of severe stenosis LV Gram was done showing normal left ventricular size and systolic function estimated ejection fraction 60 percent Right lower extremity: Tortuous iliac and common femoral artery on the right, mild disease in the SFA, severe stenosis at the tibial peroneal trunk, posterior tibial, peroneal artery and anterior tibial artery with multiple segment. Successful balloon angioplasty using [place] 2.5 x 120 the proximal and mid anterior tibial artery and tibioperoneal trunk with reduction of the 90 percent stenosis and to 50 percent stenosis in the above-mentioned arteries. No complication noted. Left lower extremity: Mild disease in the left SFA, severe stenosis at the trifurcation level and below it, treated medically CONCLUSION: 1. Multivessel coronary artery disease including severe stenosis in the proximal and mid LAD first diagonal artery first obtuse marginal/ramus intermedius and multiple segment of severe stenosis on the right coronary artery 2. Preserved left ventricular size and systolic function estimated ejection fraction 60 percent 3. Nonhealing ulcer on the right leg with successful balloon angioplasty to the anterior tibial artery and tibioperoneal trunk with reduction of the 90 percent stenosis to 50 percent stenosis in the anterior tibial artery and tibioperoneal trunk with improvement of the flow. The peroneal artery and mid posterior tibial artery were not treated 4. Severe stenosis at the left leg below the trifurcation at multiple segment treated conservatively at this point DISCUSSION AND RECOMMENDATION: I proceeded with balloon angioplasty to the anterior tibial artery and tibioperoneal trunk to help with the nonhealing foot ulcer in addition patient was started on aspirin and Plavix and I will arrange for him for referral for evaluation for CABG. If his foot ulcer did not improve we will consider more aggressive approach to his peripheral arterial disease Anesthesia Type: Conscious Sedation Estimated blood loss (mL): 30 ml Contrast Amount: 135 ml Total Radiation Dose: 851 mGy Post-Procedure Diagnosis Post-operative diagnosis: Nonhealing foot ulcer Peripheral arterial disease Coronary artery disease Hypertension Hyperlipidemia MIKA MOROCHO MD August 09, 2018 15:59
[2018-08-09] MEDS ORDERED: PATIENT MAY USE OWN MEDS, ALL PO SCH (16:00)
[2018-08-09] MEDS: NS IV 1000 ML 1,000 ML IV SCH ×2 (16:18→19:47)
[2018-08-09] MEDS ORDERED: CATHETER FLUSH 10 ML SYR IV PRN (17:45)
[2018-08-09] MEDS ORDERED: NON-FORMULARY MEDICATION 1 EA EA (Insulin Detemir (Levemir Flextouch) 15 UNIT) SQ SCH (21:00)
[2018-08-10 00:29] VITALS: BP 156/79
[2018-08-10 03:28] VITALS: BP 169/75
[2018-08-10] MEDS: NS IV 1000 ML 1,000 ML IV SCH (05:13)
[2018-08-10 05:30] LABS: HEMOGLOBIN 11.9 G/DL (13.3-17.7); MEAN PLATELET VOLUME 8.8 FL (7.4-10.4); WHITE BLOOD COUNT 4.2 10^3/uL (4.3-11.0)
[2018-08-10 05:45] LABS: BUN/CREATININE RATIO 21; CARBON DIOXIDE 23 MMOL/L (21-32); CHLORIDE 105 MMOL/L (98-107); CREATININE SERUM 0.99 MG/DL (0.60-1.30); GFR ESTIMATED > 60; POTASSIUM 4.2 MMOL/L (3.6-5.0); SODIUM 138 MMOL/L (135-145)
[2018-08-10 05:48] LABS: GLUCOSE 57 MG/DL (70-105)
[2018-08-10] MEDS ORDERED: CLOP75TA28 PO (07:24)
[2018-08-10] MEDS ORDERED: ASPI-983 PO (07:24)
[2018-08-10] MEDS ORDERED: METF-397 PO (07:24)
[2018-08-10] MEDS ORDERED: ATOR10TA PO (07:25)
--- NOTE | 2018-08-10 07:26 | Discharge Inst-Post CATH ---
Discharge Inst-CATH/EP Post Cardiac Cath/EP D/C Inst Follow Up/Plan Hold metformin for [address] Jacobs's office in 2-[address] Middleton office next week <b>CARDIAC CATH/EP PROCEDURE DISCHARGE INSTRUCTIONS</b> Cardiac Rehab Please be expecting a follow up call from Cardiac Rehab within in one week. ACTIVITY * Go Home directly and rest. * Limit activity of the leg (or wrist if it was used) for 7 days including aerobics, swimming, jogging, bicycling, etc. * Restrict stair-climbing for 7 days if possible, if not, climb up with your non-cath leg, then bring together on the same step. * Avoid lifting, pushing, pulling or excessive movement of the affected extremity for 7 days. * Customary sexual activity may be resumed after 2 days-use caution not to use a position that strains or causes pain to the affected extremity. * No driving for 24 hours. * NO SMOKING. * Avoid straining for bowel movements for 7 days. * Gentle walking on level ground is allowed. * Returning to work will depend on the type of procedure and the results. Your doctor will discuss this with you. CALL YOUR DOCTOR FOR ANY OF THE FOLLOWING: *If bleeding from the puncture site occurs- Apply gentle pressure to site with clean cloth and call your doctor or EMS. * If a knot or lump forms under the skin, increases in size, or causes pain. * If bruising appears to be worsening or moving further down your leg instead of disappearing. * Temperature above 101 F. CARE OF YOUR GROIN INCISION; * Bruising or purple discoloration of the skin near the puncture site is common. * You may shower only, no bathtub bathing for 5 days. Be careful to avoid slipping as your leg may feel stiff. * If a closure device was used on your femoral artery, please see the attached guide regarding care of the device and your leg. * Leave dressing on FOR 24 hours. CARE OF YOUR WRIST INCISION; * Bruising or purple discoloration of the skin near the puncture site is common. * You may shower. * DO NOT submerge wrist. * Leave dressing on FOR 24 hours. MIKA JACOBS MD August 10, 2018 07:26
--- NOTE | 2018-08-10 07:29 | Cardiology Progress Note ---
Subjective Date Seen by Provider: August 10, 2018 Time Seen by Provider: 07:26 Subjective/Events-last exam patient is sitting in bed, feeling well, groin is healing well. No new complaint Review of Systems General: No Chills, No Night Sweats, No Fatigue, No Malaise, No Appetite, No Other HEENT: No Head Aches, No Visual Changes, No Eye Pain, No Ear Pain, No Dysphasia, No Sinus Congestion, No Post Nasal Drip, No Sore Throat, No Other Pulmonary: No Dyspnea, No Cough, No Pleuritic Chest Pain, No Other Cardiovascular: No: Chest Pain, Palpitations, Orthopnea, Paroxysmal Noc. Dyspnea, Edema, Lt Headedness, Other Objective-Cardiology Exam Last Set of Vital Signs Vital Signs 08/10/18 03:28 Temp 98.1 Pulse 64 Resp 20 B/P (MAP) 169/75 (106) Pulse Ox 97 O2 Delivery Room Air Capillary Refill : Less Than 3 Seconds I&O Intake and Output 08/10/18 00:00 Intake Total 1340 ml Output Total 475 ml Balance 865 ml Intake Oral 340 ml IV Total 1000 ml Output Urine Total 475 ml General: Alert, Oriented X3, Cooperative HEENT: Atraumatic, PERRLA Neck: Supple, No JVD, No Thyromegaly Lungs: Clear to Auscultation, Normal Air Movement Heart: Regular Rate, Normal S1, Normal S2, No Murmurs Abdomen: Normal Bowel Sounds, Soft, No Tenderness, No Hepatosplenomegaly, No Masses Extremities: No Clubbing, No Cyanosis, No Edema, Normal Pulses, No Tenderness/Swelling Skin: No Rashes, No Breakdown, No Significant Lesion Neuro: Normal Gait, Normal Speech, Strength at 5/5 X4 Ext, Normal Tone, Sensation Intact Psych/Mental Status: Mental Status NL, Mood NL Results Lab Laboratory Tests 08/09/18 12:27 08/10/18 05:22 A/P-Cardiology Admission Diagnosis Coronary artery disease Peripheral arterial disease Nonhealing foot ulcer Hypertension Hyperlipidemia Assessment/Plan Coronary artery disease multivessel disease as described below, patient is referred to Dr. zamarripa for evaluation for CABG Nonhealing foot ulcer, extensive peripheral arterial disease below the knee, status post balloon angioplasty to the right anterior tibial artery and right posterior tibial artery and tibioperoneal trunk, severe extensive disease. I will continue monitoring and consider repeating balloon angioplasty if needed, will consider placement of a small stent as a last resort if needed Hypertension, controlled on current medication, continue to monitor Hyperlipidemia, started on Lipitor, monitor tolerance and response Diabetes mellitus, followed and managed by primary care physician Chronic antibiotic treatment due infection in his stroke History of tobaccoism, has stopped smoking. Angiogram results: 1. Multivessel coronary artery disease including severe stenosis in the proximal and mid LAD first diagonal artery first obtuse marginal/ramus interm edius and multiple segment of severe stenosis on the right coronary artery 2. Preserved left ventricular size and systolic function estimated ejection fraction 60 percent 3. Nonhealing ulcer on the right leg with successful balloon angioplasty to the anterior tibial artery and tibioperoneal trunk with reduction of the 90 percent stenosis to 50 percent stenosis in the anterior tibial artery and tibioperoneal trunk with improvement of the flow. The peroneal artery and mid posterior tibial artery were not treated 4. Severe stenosis at the left leg below the trifurcation at multiple segment treated conservatively at this point MIKA MOROCHO MD August 10, 2018 07:29
[2018-08-10] MEDS ORDERED: HEParin (CENTRAL IV FLUSH) 500 UNIT/5 ML SYR ONE (07:48)
[2018-08-10 08:00] VITALS: BP 169/75
[2018-08-10] MEDS ORDERED: ASPIRIN E.C. 81 MG (ECOTRIN) TAB PO SCH (09:00)
[2018-08-10] MEDS ORDERED: NON-FORMULARY MEDICATION 1 EA EA (Amlodipine Besylate 5 MG) PO SCH (09:00)
[2018-08-10] MEDS ORDERED: amLODIPine 5 MG (NORVASC) TAB PO SCH (09:00)
[2018-08-10] MEDS ORDERED: CLOPIDOGREL 75 MG (PLAVIX) TABLET PO SCH (09:00)
== END 2018-08-10 09:03 | disposition home or self-care (01) ==
LOC: CATH 11:39 → ICU 16:00 → CATH 08-10 09:03
PROVIDERS: ATTEND Internal Medicine Cardiovascular Disease
DX: I70.263 Atherosclerosis of native arteries of extremities with gangrene, bilateral legs (principal); I25.10 Atherosclerotic heart disease of native coronary artery without angina pectoris; E11.621 Type 2 diabetes mellitus with foot ulcer; L97.519 Non-pressure chronic ulcer of other part of right foot with unspecified severity; I10 Essential (primary) hypertension; E78.5 Hyperlipidemia, unspecified; Z87.891 Personal history of nicotine dependence; Z79.4 Long term (current) use of insulin; Z79.899 Other long term (current) drug therapy; I65.23 Occlusion and stenosis of bilateral carotid arteries; E78.00 Pure hypercholesterolemia, unspecified; E11.44 Type 2 diabetes mellitus with diabetic amyotrophy; R09.89 Other specified symptoms and signs involving the circulatory and respiratory systems; Z11.2 Encounter for screening for other bacterial diseases
CPT/HCPCS: 36248; 36415; 71045; 75716; 80048; 80053; 80061; 81000; 82962; 85027; 85610; 85730; 87081; 93458

== ENCOUNTER → 2018-08-11 | Outpatient (CLI) | payer MEDICARE, MEDICAID ==
[~2018-08-11] MED LIST changes: +AMLO5TAB9 PO; +ASPI-983 PO; +ATOR10TA PO; +CITA20TA9 PO; +CLOP75TA28 PO; +INSU100I29 SQ; +METF-397 PO
== END ==
LOC: WOUNDCARE 10:37
PROVIDERS: ATTEND Surgery
DX: E11.621 Type 2 diabetes mellitus with foot ulcer (principal); L97.512 Non-pressure chronic ulcer of other part of right foot with fat layer exposed; I70.235 Atherosclerosis of native arteries of right leg with ulceration of other part of foot; N18.3 Chronic kidney disease, stage 3 (moderate)
CPT/HCPCS: 11042

== ENCOUNTER → 2018-08-16 | Outpatient (CLI) | payer MEDICARE, MEDICAID | LOC: WOUNDCARE 12:25 | PROVIDERS: ATTEND Surgery | DX: E11.621 Type 2 diabetes mellitus with foot ulcer (principal); I70.235 Atherosclerosis of native arteries of right leg with ulceration of other part of foot; L97.513 Non-pressure chronic ulcer of other part of right foot with necrosis of muscle; E11.22 Type 2 diabetes mellitus with diabetic chronic kidney disease; N18.3 Chronic kidney disease, stage 3 (moderate); E11.42 Type 2 diabetes mellitus with diabetic polyneuropathy | CPT/HCPCS: 11043; 87070; 87077; 87186; 87205 ==

== ENCOUNTER → 2018-08-17 | Outpatient (CLI) | payer MEDICARE, MEDICAID | LOC: CARD 10:28 | PROVIDERS: ATTEND Internal Medicine Cardiovascular Disease | DX: I65.23 Occlusion and stenosis of bilateral carotid arteries (principal); I10 Essential (primary) hypertension; E78.01 Familial hypercholesterolemia; I70.263 Atherosclerosis of native arteries of extremities with gangrene, bilateral legs; E08.44 Diabetes mellitus due to underlying condition with diabetic amyotrophy; I34.0 Nonrheumatic mitral (valve) insufficiency | CPT/HCPCS: 93306 ==

== ENCOUNTER → 2018-08-23 | Outpatient (CLI) | payer MEDICARE, MEDICAID | LOC: WOUNDCARE 15:03 | PROVIDERS: ATTEND Surgery | DX: E11.621 Type 2 diabetes mellitus with foot ulcer (principal); I70.235 Atherosclerosis of native arteries of right leg with ulceration of other part of foot; L97.512 Non-pressure chronic ulcer of other part of right foot with fat layer exposed; E11.22 Type 2 diabetes mellitus with diabetic chronic kidney disease; N18.3 Chronic kidney disease, stage 3 (moderate); E11.42 Type 2 diabetes mellitus with diabetic polyneuropathy | CPT/HCPCS: 11042 ==

== ENCOUNTER → 2018-08-30 | Outpatient (CLI) | payer MEDICARE, MEDICAID | LOC: WOUNDCARE 12:28 | PROVIDERS: ATTEND Surgery | DX: E11.621 Type 2 diabetes mellitus with foot ulcer (principal); L97.512 Non-pressure chronic ulcer of other part of right foot with fat layer exposed; I70.235 Atherosclerosis of native arteries of right leg with ulceration of other part of foot; E11.22 Type 2 diabetes mellitus with diabetic chronic kidney disease; N18.3 Chronic kidney disease, stage 3 (moderate); E11.42 Type 2 diabetes mellitus with diabetic polyneuropathy | CPT/HCPCS: 11042 ==

== ENCOUNTER → 2018-09-04 | Outpatient (CLI) | payer MEDICARE, MEDICAID | LOC: LAB 07:36 | PROVIDERS: ATTEND Surgery | DX: L97.512 Non-pressure chronic ulcer of other part of right foot with fat layer exposed (principal) | CPT/HCPCS: 36415; 84134 ==

== ENCOUNTER → 2018-09-04 | Outpatient (CLI) | payer MEDICARE, MEDICAID ==
[2018-09-04 08:01] LABS: BASOPHILS # (AUTO) 0.1 10^3/uL (0.0-0.1); BASOPHILS % (AUTO) 1 % (0-10); EOSINOPHILS # (AUTO) 0.2 10^3/uL (0.0-0.3); EOSINOPHILS % (AUTO) 3 % (0-10); HEMATOCRIT 39 % (40-54); HEMOGLOBIN 13.8 G/DL (13.3-17.7); LYMPHOCYTES # (AUTO) 1.1 X 10^3 (1.0-4.0); LYMPHOCYTES % (AUTO) 20 % (12-44); MEAN CORPUSCULAR HEMOGLOBIN 30 PG (25-34); MEAN CORPUSCULAR HGB CONC 36 G/DL (32-36); MEAN CORPUSCULAR VOLUME 84 FL (80-99); MEAN PLATELET VOLUME 9.4 FL (7.4-10.4); MONOCYTES # (AUTO) 0.7 X 10^3 (0.0-1.0); MONOCYTES % (AUTO) 12 % (0-12); NEUTROPHILS # (AUTO) 3.7 X 10^3 (1.8-7.8); NEUTROPHILS % (AUTO) 65 % (42-75); PLATELET COUNT 236 10^3/uL (130-400); RED CELL DISTRIBUTION WIDTH 13.4 % (10.0-14.5); WHITE BLOOD COUNT 5.7 10^3/uL (4.3-11.0)
[2018-09-04 08:26] LABS: ABG BASE EXCESS 0.9 MMOL/L (-2.5-2.5); ABG OXYGEN SATURATION 99 % (94-100); ABG PCO2 35 MMHG (35-45); ABG PH 7.46 (7.37-7.43); ABG PO2 105 MMHG (79-93); ABG TCO2 25.8 MMOL/L (21.0-31.0)
[2018-09-04 08:27] LABS: ALLENS TEST YES-POS; INSPIRED O2 ROOM AIR; PATIENT TEMP 96.4; VENTILATOR NO
[2018-09-04 08:27] LABS: ALANINE AMINOTRANSFERASE 14 U/L (0-55); ALBUMIN 4.1 GM/DL (3.2-4.5); ALKALINE PHOSPHATASE 74 U/L (40-136); BILIRUBIN,TOTAL 0.4 MG/DL (0.1-1.0); BUN/CREATININE RATIO 14; CALCIUM 9.5 MG/DL (8.5-10.1); CARBON DIOXIDE 27 MMOL/L (21-32); CHLORIDE 102 MMOL/L (98-107); CREATININE SERUM 1.17 MG/DL (0.60-1.30); GFR ESTIMATED > 60; GLUCOSE 75 MG/DL (70-105); POTASSIUM 4.7 MMOL/L (3.6-5.0); SODIUM 138 MMOL/L (135-145); TOTAL PROTEIN 7.6 GM/DL (6.4-8.2)
[2018-09-04 08:53] LABS: BILIRUBIN,URINE NEGATIVE (NEGATIVE); CLARITY,URINE CLEAR; COLOR,URINE YELLOW; GLUCOSE, URINE (UA) NEGATIVE (NEGATIVE); KETONES,URINE NEGATIVE (NEGATIVE); LEUKOCYTE ESTERASE ,URINE NEGATIVE (NEGATIVE); NITRITE,URINE NEGATIVE (NEGATIVE); PH,URINE 8 (5-9); PROTEIN,URINE 3+ (NEGATIVE); UROBILINOGEN,URINE NORMAL (NORMAL)
[2018-09-04 09:11] LABS: BACTERIA,URINE NEGATIVE /HPF
== END ==
LOC: CARD 07:31
PROVIDERS: ATTEND Thoracic Surgery (Cardiothoracic Vascular Surgery)
DX: Z01.812 Encounter for preprocedural laboratory examination (principal); Z11.2 Encounter for screening for other bacterial diseases; I25.10 Atherosclerotic heart disease of native coronary artery without angina pectoris
CPT/HCPCS: 36415; 36600; 80053; 81000; 82805; 85025; 87081

== ENCOUNTER → 2018-09-06 | Outpatient (CLI) | payer MEDICARE, MEDICAID | LOC: WOUNDCARE 12:25 | PROVIDERS: ATTEND Surgery | DX: E11.621 Type 2 diabetes mellitus with foot ulcer (principal); I70.235 Atherosclerosis of native arteries of right leg with ulceration of other part of foot; L97.512 Non-pressure chronic ulcer of other part of right foot with fat layer exposed; E11.22 Type 2 diabetes mellitus with diabetic chronic kidney disease; N18.3 Chronic kidney disease, stage 3 (moderate); E11.42 Type 2 diabetes mellitus with diabetic polyneuropathy | CPT/HCPCS: 11042 ==

== ENCOUNTER → 2018-09-12 | Outpatient (CLI) | payer MEDICARE, MEDICAID | LOC: WOUNDCARE 12:49 | PROVIDERS: ATTEND Surgery | DX: E11.621 Type 2 diabetes mellitus with foot ulcer (principal); L97.512 Non-pressure chronic ulcer of other part of right foot with fat layer exposed; E11.22 Type 2 diabetes mellitus with diabetic chronic kidney disease; N18.3 Chronic kidney disease, stage 3 (moderate); E11.42 Type 2 diabetes mellitus with diabetic polyneuropathy | CPT/HCPCS: 11042 ==

== ENCOUNTER → 2018-09-20 | Outpatient (CLI) | payer MEDICARE, MEDICAID | LOC: WOUNDCARE 12:48 | PROVIDERS: ATTEND Surgery | DX: E11.621 Type 2 diabetes mellitus with foot ulcer (principal); I70.235 Atherosclerosis of native arteries of right leg with ulceration of other part of foot; L97.512 Non-pressure chronic ulcer of other part of right foot with fat layer exposed; E11.22 Type 2 diabetes mellitus with diabetic chronic kidney disease; N18.3 Chronic kidney disease, stage 3 (moderate); E11.42 Type 2 diabetes mellitus with diabetic polyneuropathy | CPT/HCPCS: 11042 ==

== ENCOUNTER 2018-09-26 15:49 | Outpatient (RCR) | payer MEDICARE, MEDICAID | END 2018-11-19 | disposition home or self-care (01) | PROVIDERS: ATTEND Surgery | DX: R26.81 Unsteadiness on feet (principal) ==

== ENCOUNTER → 2018-09-27 | Outpatient (CLI) | payer MEDICARE, MEDICAID | LOC: WOUNDCARE 12:12 | PROVIDERS: ATTEND Surgery | DX: E11.52 Type 2 diabetes mellitus with diabetic peripheral angiopathy with gangrene (principal); E11.621 Type 2 diabetes mellitus with foot ulcer; E11.42 Type 2 diabetes mellitus with diabetic polyneuropathy; E11.22 Type 2 diabetes mellitus with diabetic chronic kidney disease; L97.512 Non-pressure chronic ulcer of other part of right foot with fat layer exposed; I70.261 Atherosclerosis of native arteries of extremities with gangrene, right leg; N18.3 Chronic kidney disease, stage 3 (moderate) | CPT/HCPCS: 11042 ==

== ENCOUNTER → 2018-10-04 | Outpatient (CLI) | payer MEDICARE, MEDICAID | LOC: WOUNDCARE 12:14 | PROVIDERS: ATTEND Surgery | DX: E11.621 Type 2 diabetes mellitus with foot ulcer (principal); E11.42 Type 2 diabetes mellitus with diabetic polyneuropathy; L97.512 Non-pressure chronic ulcer of other part of right foot with fat layer exposed; I70.235 Atherosclerosis of native arteries of right leg with ulceration of other part of foot; E11.22 Type 2 diabetes mellitus with diabetic chronic kidney disease; N18.3 Chronic kidney disease, stage 3 (moderate); E11.52 Type 2 diabetes mellitus with diabetic peripheral angiopathy with gangrene; I96 Gangrene, not elsewhere classified | CPT/HCPCS: 11042 ==

== ENCOUNTER → 2019-05-23 | Outpatient (CLI) | payer MEDICAID, MEDICARE ==
[~2019-05-23] MED LIST changes: +ATOR80TA76 PO; +CFTR1PB IV; +ISOS30TA3 PO; +LISI10TA2 PO; +METR500P4 IV; +MTP25TSR PO; +OMG1KC PO; +SERT50TA9 PO; +VANC1.756 IV
== END ==
LOC: WOUNDCARE 10:29
PROVIDERS: ATTEND Surgery
DX: E11.621 Type 2 diabetes mellitus with foot ulcer (principal); E11.42 Type 2 diabetes mellitus with diabetic polyneuropathy; E11.52 Type 2 diabetes mellitus with diabetic peripheral angiopathy with gangrene; I70.261 Atherosclerosis of native arteries of extremities with gangrene, right leg; M86.471 Chronic osteomyelitis with draining sinus, right ankle and foot; L97.416 Non-pressure chronic ulcer of right heel and midfoot with bone involvement without evidence of necrosis; I65.22 Occlusion and stenosis of left carotid artery
CPT/HCPCS: 11043

== ENCOUNTER → 2019-05-28 | Outpatient (CLI) | payer MEDICARE | LOC: WOUNDCARE 10:18 | PROVIDERS: ATTEND Surgery | DX: E11.621 Type 2 diabetes mellitus with foot ulcer (principal); E11.42 Type 2 diabetes mellitus with diabetic polyneuropathy; L97.413 Non-pressure chronic ulcer of right heel and midfoot with necrosis of muscle; M86.471 Chronic osteomyelitis with draining sinus, right ankle and foot; E11.52 Type 2 diabetes mellitus with diabetic peripheral angiopathy with gangrene | CPT/HCPCS: 11043 ==

== ENCOUNTER → 2019-06-05 | Outpatient (CLI) | payer MEDICARE | LOC: WOUNDCARE 09:32 | PROVIDERS: ATTEND Surgery | DX: E11.621 Type 2 diabetes mellitus with foot ulcer (principal); E11.52 Type 2 diabetes mellitus with diabetic peripheral angiopathy with gangrene; E11.42 Type 2 diabetes mellitus with diabetic polyneuropathy; I96 Gangrene, not elsewhere classified; L97.412 Non-pressure chronic ulcer of right heel and midfoot with fat layer exposed; M86.471 Chronic osteomyelitis with draining sinus, right ankle and foot | CPT/HCPCS: 11042 ==

== ENCOUNTER → 2019-06-12 | Outpatient (CLI) | payer MEDICARE | LOC: WOUNDCARE 10:07 | PROVIDERS: ATTEND Surgery | DX: E11.621 Type 2 diabetes mellitus with foot ulcer (principal); E11.42 Type 2 diabetes mellitus with diabetic polyneuropathy; L97.412 Non-pressure chronic ulcer of right heel and midfoot with fat layer exposed; M86.471 Chronic osteomyelitis with draining sinus, right ankle and foot | CPT/HCPCS: 11042 ==

== ENCOUNTER → 2019-06-19 | Outpatient (CLI) | payer MEDICARE, MEDICAID | LOC: WOUNDCARE 10:05 | PROVIDERS: ATTEND Surgery | DX: E11.621 Type 2 diabetes mellitus with foot ulcer (principal); L97.416 Non-pressure chronic ulcer of right heel and midfoot with bone involvement without evidence of necrosis; E11.42 Type 2 diabetes mellitus with diabetic polyneuropathy; L97.412 Non-pressure chronic ulcer of right heel and midfoot with fat layer exposed; M86.471 Chronic osteomyelitis with draining sinus, right ankle and foot | CPT/HCPCS: 11043 ==

== ENCOUNTER 2019-06-25 08:15 | Outpatient (RCR) | payer MEDICARE, MEDICAID ==
[2019-05-22] MEDS: CATHETER FLUSH 10 ML SYR IV PRN (08:22)
[2019-05-22] MEDS: METRONIDAZOLE IV SCH (08:22)
[2019-05-22] MEDS: cefTRIAXone 1,000 MG/SWFI 10 ML IV PUSH IV SCH ×2 (08:48)
[2019-05-22 08:55] VITALS: BP 127/59
[2019-05-23] MEDS: cefTRIAXone 1,000 MG/SWFI 10 ML IV PUSH IV SCH ×2 (08:10)
[2019-05-23] MEDS: METRONIDAZOLE IV SCH (08:11)
[2019-05-23] MEDS: CATHETER FLUSH 10 ML SYR IV PRN (08:12)
[2019-05-23] MEDS: VANCOMYCIN 1,750 MG/NS 500 ML IVPB IV SCH ×2 (08:21)
[2019-05-23 08:45] VITALS: BP 140/63
[2019-05-24] MEDS: CATHETER FLUSH 10 ML SYR IV PRN (08:01)
[2019-05-24] MEDS: METRONIDAZOLE IV SCH (08:01)
[2019-05-24] MEDS: cefTRIAXone 1,000 MG/SWFI 10 ML IV PUSH IV SCH ×2 (09:02)
[2019-05-24 09:07] VITALS: BP 107/53
[2019-05-25 07:45] VITALS: BP 124/57
[2019-05-25] MEDS: METRONIDAZOLE IV SCH (08:38)
[2019-05-25] MEDS: cefTRIAXone 1,000 MG/SWFI 10 ML IV PUSH IV SCH ×2 (08:38)
[2019-05-25] MEDS: VANCOMYCIN 1,750 MG/NS 500 ML IVPB IV SCH ×2 (10:39)
[2019-05-25] MEDS: CATHETER FLUSH 10 ML SYR IV PRN (10:40)
[2019-05-26] MEDS: cefTRIAXone 1,000 MG/SWFI 10 ML IV PUSH IV SCH ×2 (08:34)
[2019-05-26] MEDS: METRONIDAZOLE IV SCH (08:38)
[2019-05-26 08:51] VITALS: BP 117/58
[2019-05-27] MEDS: cefTRIAXone 1,000 MG/SWFI 10 ML IV PUSH IV SCH ×2 (08:29)
[2019-05-27] MEDS: VANCOMYCIN 1,750 MG/NS 500 ML IVPB IV SCH ×2 (08:33)
[2019-05-27] MEDS: CATHETER FLUSH 10 ML SYR IV PRN (08:33)
[2019-05-27] MEDS: METRONIDAZOLE IV SCH ×2 (08:33→09:25)
[2019-05-27 08:41] VITALS: BP 139/69
[2019-05-28] MEDS: cefTRIAXone 1,000 MG/SWFI 10 ML IV PUSH IV SCH ×2 (07:56)
[2019-05-28] MEDS: CATHETER FLUSH 10 ML SYR IV PRN ×3 (07:56→09:07)
[2019-05-28] MEDS: METRONIDAZOLE IV SCH (08:02)
[2019-05-28 09:08] VITALS: BP 151/73
[2019-05-29] MEDS: cefTRIAXone 1,000 MG/SWFI 10 ML IV PUSH IV SCH ×2 (08:06)
[2019-05-29] MEDS: CATHETER FLUSH 10 ML SYR IV PRN ×3 (08:06→11:24)
[2019-05-29] MEDS: METRONIDAZOLE IV SCH (08:10)
[2019-05-29 08:24] LABS: BUN/CREATININE RATIO 14; CALCIUM 8.4 MG/DL (8.5-10.1); CARBON DIOXIDE 25 MMOL/L (21-32); CHLORIDE 105 MMOL/L (98-107); CREATININE SERUM 1.13 MG/DL (0.60-1.30); GFR ESTIMATED > 60; GLUCOSE 167 MG/DL (70-105); SODIUM 138 MMOL/L (135-145)
[2019-05-29 08:31] LABS: VANCOMYCIN,TROUGH 8.3 UG/ML (10.0-20.0)
[2019-05-29] MEDS: VANCOMYCIN 1,750 MG/NS 500 ML IVPB IV SCH ×2 (09:18)
[2019-05-29 11:23] VITALS: BP 128/66
[2019-05-30] MEDS: METRONIDAZOLE IV SCH (08:07)
[2019-05-30] MEDS: cefTRIAXone 1,000 MG/SWFI 10 ML IV PUSH IV SCH ×2 (08:07)
[2019-05-30 08:12] VITALS: BP 138/59
[2019-05-30] MEDS: VANCOMYCIN 1250 MG/NS 250 ML IVPB IV SCH ×2 (10:17)
[2019-05-31 07:44] VITALS: BP 135/68
[2019-05-31] MEDS: cefTRIAXone 1,000 MG/SWFI 10 ML IV PUSH IV SCH ×2 (07:54)
[2019-05-31] MEDS: METRONIDAZOLE IV SCH (07:58)
[2019-05-31] MEDS: VANCOMYCIN 1250 MG/NS 250 ML IVPB IV SCH ×2 (08:34)
[2019-06-01 07:42] VITALS: BP 134/61
[2019-06-01] MEDS: cefTRIAXone 1,000 MG/SWFI 10 ML IV PUSH IV SCH ×2 (07:56)
[2019-06-01] MEDS: METRONIDAZOLE IV SCH (07:57)
[2019-06-01] MEDS: VANCOMYCIN 1250 MG/NS 250 ML IVPB IV SCH ×2 (08:00)
[2019-06-02] MEDS: cefTRIAXone 1,000 MG/SWFI 10 ML IV PUSH IV SCH ×2 (08:28)
[2019-06-02] MEDS: CATHETER FLUSH 10 ML SYR IV PRN (08:28)
[2019-06-02] MEDS: VANCOMYCIN 1250 MG/NS 250 ML IVPB IV SCH ×2 (08:32)
[2019-06-02] MEDS: METRONIDAZOLE IV SCH (08:33)
[2019-06-03] MEDS: cefTRIAXone 1,000 MG/SWFI 10 ML IV PUSH IV SCH ×2 (08:39)
[2019-06-03] MEDS: METRONIDAZOLE IV SCH (08:46)
[2019-06-03] MEDS: VANCOMYCIN 1250 MG/NS 250 ML IVPB IV SCH ×2 (08:46)
[2019-06-03 09:45] VITALS: BP 124/60
[2019-06-04] MEDS: METRONIDAZOLE IV SCH (08:10)
[2019-06-04] MEDS: cefTRIAXone 1,000 MG/SWFI 10 ML IV PUSH IV SCH ×2 (08:10)
[2019-06-04 08:15] VITALS: BP 136/65
[2019-06-04] MEDS: VANCOMYCIN 1250 MG/NS 250 ML IVPB IV SCH ×2 (08:21)
[2019-06-04] MEDS: CATHETER FLUSH 10 ML SYR IV SCH (08:23)
[2019-06-05] MEDS: cefTRIAXone 1,000 MG/SWFI 10 ML IV PUSH IV SCH ×2 (08:08)
[2019-06-05] MEDS: METRONIDAZOLE IV SCH (08:08)
[2019-06-05] MEDS: VANCOMYCIN 1250 MG/NS 250 ML IVPB IV SCH ×2 (08:08)
[2019-06-05] MEDS: CATHETER FLUSH 10 ML SYR IV SCH (08:09)
[2019-06-05 08:15] VITALS: BP 158/75
[2019-06-06] MEDS: cefTRIAXone 1,000 MG/SWFI 10 ML IV PUSH IV SCH ×2 (08:36)
[2019-06-06] MEDS: VANCOMYCIN 1250 MG/NS 250 ML IVPB IV SCH ×2 (08:36)
[2019-06-06] MEDS: METRONIDAZOLE IV SCH (08:36)
[2019-06-06] MEDS: CATHETER FLUSH 10 ML SYR IV PRN (08:38)
[2019-06-06] MEDS: CATHETER FLUSH 10 ML SYR IV SCH (08:38)
[2019-06-06 09:01] VITALS: BP 120/62
[2019-06-07 08:14] VITALS: BP 138/61
[2019-06-07] MEDS: cefTRIAXone 1,000 MG/SWFI 10 ML IV PUSH IV SCH ×2 (08:22)
[2019-06-07] MEDS: METRONIDAZOLE IV SCH (08:23)
[2019-06-07] MEDS: VANCOMYCIN 1250 MG/NS 250 ML IVPB IV SCH ×2 (08:30)
[2019-06-08 08:20] VITALS: BP 154/66
[2019-06-08] MEDS: cefTRIAXone 1,000 MG/SWFI 10 ML IV PUSH IV SCH ×2 (08:34)
[2019-06-08] MEDS: VANCOMYCIN 1250 MG/NS 250 ML IVPB IV SCH ×2 (08:37)
[2019-06-08] MEDS: METRONIDAZOLE IV SCH (08:37)
[2019-06-09] MEDS: cefTRIAXone 1,000 MG/SWFI 10 ML IV PUSH IV SCH ×2 (08:36)
[2019-06-09] MEDS: CATHETER FLUSH 10 ML SYR IV PRN ×2 (08:37→10:09)
[2019-06-09] MEDS: VANCOMYCIN 1250 MG/NS 250 ML IVPB IV SCH ×2 (08:47)
[2019-06-09] MEDS: METRONIDAZOLE IV SCH (08:48)
[2019-06-09 10:09] VITALS: BP 151/73
[2019-06-10] MEDS: CATHETER FLUSH 10 ML SYR IV SCH (08:35)
[2019-06-10] MEDS: cefTRIAXone 1,000 MG/SWFI 10 ML IV PUSH IV SCH ×2 (08:35)
[2019-06-10] MEDS: CATHETER FLUSH 10 ML SYR IV PRN ×2 (08:37→10:04)
[2019-06-10] MEDS: METRONIDAZOLE IV SCH (08:44)
[2019-06-10] MEDS: VANCOMYCIN 1250 MG/NS 250 ML IVPB IV SCH ×2 (08:45)
[2019-06-10 10:05] VITALS: BP 124/56
[2019-06-11] MEDS: TROUGH ORDER-PHARMACY XX NR (08:30)
[2019-06-11] MEDS: cefTRIAXone 1,000 MG/SWFI 10 ML IV PUSH IV SCH ×2 (08:38)
[2019-06-11] MEDS: CATHETER FLUSH 10 ML SYR IV PRN ×2 (08:44→10:34)
[2019-06-11] MEDS: METRONIDAZOLE IV SCH (08:44)
[2019-06-11] MEDS: VANCOMYCIN 1250 MG/NS 250 ML IVPB IV SCH ×2 (09:12)
[2019-06-11 10:35] VITALS: BP 133/61
[2019-06-12] MEDS: METRONIDAZOLE IV SCH (08:32)
[2019-06-12] MEDS: VANCOMYCIN 1250 MG/NS 250 ML IVPB IV SCH ×2 (08:33)
[2019-06-12] MEDS: CATHETER FLUSH 10 ML SYR IV PRN (08:34)
[2019-06-12] MEDS: cefTRIAXone 1,000 MG/SWFI 10 ML IV PUSH IV SCH ×2 (09:55)
[2019-06-12 10:00] VITALS: BP 126/74
[2019-06-13] MEDS: cefTRIAXone 1,000 MG/SWFI 10 ML IV PUSH IV SCH ×2 (08:26)
[2019-06-13] MEDS: VANCOMYCIN 1250 MG/NS 250 ML IVPB IV SCH ×2 (08:27)
[2019-06-13] MEDS: METRONIDAZOLE IV SCH (08:27)
[2019-06-13] MEDS: CATHETER FLUSH 10 ML SYR IV PRN (08:28)
[2019-06-13 08:31] VITALS: BP 116/57
[2019-06-14 08:15] VITALS: BP 154/74
[2019-06-14] MEDS: METRONIDAZOLE IV SCH (08:20)
[2019-06-14] MEDS: CATHETER FLUSH 10 ML SYR IV PRN (08:21)
[2019-06-14] MEDS: VANCOMYCIN 1250 MG/NS 250 ML IVPB IV SCH ×2 (08:21)
[2019-06-14] MEDS: cefTRIAXone 1,000 MG/SWFI 10 ML IV PUSH IV SCH ×2 (09:42)
[2019-06-15 08:15] VITALS: BP 127/66
[2019-06-15] MEDS: cefTRIAXone 1,000 MG/SWFI 10 ML IV PUSH IV SCH ×2 (08:25)
[2019-06-15] MEDS: CATHETER FLUSH 10 ML SYR IV PRN (08:25)
[2019-06-15] MEDS: METRONIDAZOLE IV SCH (08:27)
[2019-06-15] MEDS: VANCOMYCIN 1250 MG/NS 250 ML IVPB IV SCH ×2 (08:27)
[2019-06-16] MEDS: cefTRIAXone 1,000 MG/SWFI 10 ML IV PUSH IV SCH ×2 (08:21)
[2019-06-16] MEDS: METRONIDAZOLE IV SCH (08:21)
[2019-06-16] MEDS: VANCOMYCIN 1250 MG/NS 250 ML IVPB IV SCH ×2 (08:21)
[2019-06-16] MEDS: CATHETER FLUSH 10 ML SYR IV PRN (08:22)
[2019-06-16 08:30] VITALS: BP 135/72
[2019-06-17] MEDS: METRONIDAZOLE IV SCH (08:26)
[2019-06-17] MEDS: cefTRIAXone 1,000 MG/SWFI 10 ML IV PUSH IV SCH ×2 (08:26)
[2019-06-17] MEDS: VANCOMYCIN 1250 MG/NS 250 ML IVPB IV SCH ×2 (08:26)
[2019-06-17 08:35] VITALS: BP 144/74
[2019-06-18] MEDS: cefTRIAXone 1,000 MG/SWFI 10 ML IV PUSH IV SCH ×2 (08:17)
[2019-06-18] MEDS: CATHETER FLUSH 10 ML SYR IV PRN (08:17)
[2019-06-18] MEDS: METRONIDAZOLE IV SCH (08:25)
[2019-06-18] MEDS: VANCOMYCIN 1250 MG/NS 250 ML IVPB IV SCH ×2 (08:25)
[2019-06-18 09:45] VITALS: BP 141/67
[2019-06-19] MEDS: METRONIDAZOLE IV SCH (08:42)
[2019-06-19] MEDS: cefTRIAXone 1,000 MG/SWFI 10 ML IV PUSH IV SCH ×2 (08:42)
[2019-06-19] MEDS: VANCOMYCIN 1250 MG/NS 250 ML IVPB IV SCH ×2 (08:42)
[2019-06-19] MEDS: CATHETER FLUSH 10 ML SYR IV PRN (08:43)
[2019-06-19 08:45] VITALS: BP 116/58
--- NOTE | 2019-06-19 09:16 | NUR ---
ptd vancomycin labs: vanco trough 18.7 plan: continue with current dosing repeat level in 1 week
[2019-06-20] MEDS: cefTRIAXone 1,000 MG/SWFI 10 ML IV PUSH IV SCH ×2 (08:43)
[2019-06-20] MEDS: CATHETER FLUSH 10 ML SYR IV PRN ×2 (08:43→10:07)
[2019-06-20] MEDS: VANCOMYCIN 1250 MG/NS 250 ML IVPB IV SCH ×2 (08:47)
[2019-06-20] MEDS: METRONIDAZOLE IV SCH (08:48)
[2019-06-20 10:10] VITALS: BP 135/61
[2019-06-21] MEDS: VANCOMYCIN 1250 MG/NS 250 ML IVPB IV SCH ×2 (08:24)
[2019-06-21] MEDS: METRONIDAZOLE IV SCH (08:24)
[2019-06-21] MEDS: cefTRIAXone 1,000 MG/SWFI 10 ML IV PUSH IV SCH ×2 (08:24)
[2019-06-21] MEDS: CATHETER FLUSH 10 ML SYR IV PRN (08:25)
[2019-06-21 08:29] VITALS: BP 137/61
[2019-06-22] MEDS: cefTRIAXone 1,000 MG/SWFI 10 ML IV PUSH IV SCH ×2 (08:24)
[2019-06-22] MEDS: METRONIDAZOLE IV SCH (08:27)
[2019-06-22] MEDS: VANCOMYCIN 1250 MG/NS 250 ML IVPB IV SCH ×2 (08:34)
[2019-06-22 08:35] VITALS: BP 141/61
[2019-06-22] MEDS: CATHETER FLUSH 10 ML SYR IV PRN (10:00)
[2019-06-23 08:15] VITALS: BP 155/66
[2019-06-23] MEDS: cefTRIAXone 1,000 MG/SWFI 10 ML IV PUSH IV SCH ×2 (08:24)
[2019-06-23] MEDS: CATHETER FLUSH 10 ML SYR IV PRN ×2 (08:25→08:27)
[2019-06-23] MEDS: METRONIDAZOLE IV SCH (08:29)
[2019-06-23] MEDS: VANCOMYCIN 1250 MG/NS 250 ML IVPB IV SCH ×2 (08:31)
[2019-06-24 08:15] VITALS: BP 133/59
[2019-06-24] MEDS: cefTRIAXone 1,000 MG/SWFI 10 ML IV PUSH IV SCH ×2 (08:26)
[2019-06-24] MEDS: METRONIDAZOLE IV SCH (08:31)
[2019-06-24] MEDS: VANCOMYCIN 1250 MG/NS 250 ML IVPB IV SCH ×2 (08:31)
[~2019-06-25] VITALS: Ht 167.5 cm; Wt 73.9 kg
[~2019-06-25 08:15] MED LIST changes: +TROUGH ORDER-PHARMACY XX NR; +TROUGH ORDER-PHARMACY XX ONE
[2019-06-25] MEDS: CATHETER FLUSH 10 ML SYR IV PRN ×2 (08:37→10:04)
[2019-06-25] MEDS: cefTRIAXone 1,000 MG/SWFI 10 ML IV PUSH IV SCH ×2 (08:38)
[2019-06-25] MEDS: VANCOMYCIN 1250 MG/NS 250 ML IVPB IV SCH ×2 (08:42)
[2019-06-25] MEDS: METRONIDAZOLE IV SCH (08:43)
[2019-06-25 10:07] VITALS: BP 133/64
== END 2019-06-25 10:07 | disposition home or self-care (01) ==
LOC: SDC 08:15
PROVIDERS: ATTEND Family Medicine
DX: E11.621 Type 2 diabetes mellitus with foot ulcer (principal); L97.519 Non-pressure chronic ulcer of other part of right foot with unspecified severity
CPT/HCPCS: 36415; 80048; 80202; 82040; 83036; 84134; 96365; 96366; 96367; 96368; 96374; 96375

== ENCOUNTER → 2019-06-26 | Outpatient (CLI) | payer MEDICARE, MEDICAID ==
[~2019-06-26] MED LIST changes: -TROUGH ORDER-PHARMACY XX NR; -TROUGH ORDER-PHARMACY XX ONE
== END ==
LOC: WOUNDCARE 10:30
PROVIDERS: ATTEND Surgery
DX: E11.621 Type 2 diabetes mellitus with foot ulcer (principal); E11.42 Type 2 diabetes mellitus with diabetic polyneuropathy; L97.412 Non-pressure chronic ulcer of right heel and midfoot with fat layer exposed; M86.471 Chronic osteomyelitis with draining sinus, right ankle and foot
CPT/HCPCS: 11042

== ENCOUNTER → 2019-07-03 | Outpatient (CLI) | payer MEDICARE, MEDICAID | LOC: WOUNDCARE 10:26 | PROVIDERS: ATTEND Surgery | DX: E11.621 Type 2 diabetes mellitus with foot ulcer (principal); E11.42 Type 2 diabetes mellitus with diabetic polyneuropathy; L97.412 Non-pressure chronic ulcer of right heel and midfoot with fat layer exposed; M86.471 Chronic osteomyelitis with draining sinus, right ankle and foot; I70.234 Atherosclerosis of native arteries of right leg with ulceration of heel and midfoot | CPT/HCPCS: 11042 ==

== ENCOUNTER → 2019-07-10 | Outpatient (CLI) | payer MEDICARE, MEDICAID | LOC: WOUNDCARE 10:29 | PROVIDERS: ATTEND Surgery | DX: E11.621 Type 2 diabetes mellitus with foot ulcer (principal); E11.42 Type 2 diabetes mellitus with diabetic polyneuropathy; M86.471 Chronic osteomyelitis with draining sinus, right ankle and foot; L97.412 Non-pressure chronic ulcer of right heel and midfoot with fat layer exposed; I70.234 Atherosclerosis of native arteries of right leg with ulceration of heel and midfoot | CPT/HCPCS: 11042 ==

== ENCOUNTER → 2019-07-17 | Outpatient (CLI) | payer MEDICARE, MEDICAID | LOC: WOUNDCARE 10:26 | PROVIDERS: ATTEND Surgery | DX: E11.621 Type 2 diabetes mellitus with foot ulcer (principal); E11.42 Type 2 diabetes mellitus with diabetic polyneuropathy; L97.412 Non-pressure chronic ulcer of right heel and midfoot with fat layer exposed; M86.471 Chronic osteomyelitis with draining sinus, right ankle and foot; I70.234 Atherosclerosis of native arteries of right leg with ulceration of heel and midfoot | CPT/HCPCS: 11042 ==

== ENCOUNTER → 2019-07-24 | Outpatient (CLI) | payer MEDICARE, MEDICAID | LOC: WOUNDCARE 11:21 | PROVIDERS: ATTEND Surgery | DX: E11.621 Type 2 diabetes mellitus with foot ulcer (principal); E11.42 Type 2 diabetes mellitus with diabetic polyneuropathy; E11.52 Type 2 diabetes mellitus with diabetic peripheral angiopathy with gangrene; I70.261 Atherosclerosis of native arteries of extremities with gangrene, right leg; L97.412 Non-pressure chronic ulcer of right heel and midfoot with fat layer exposed; M86.471 Chronic osteomyelitis with draining sinus, right ankle and foot | CPT/HCPCS: 11042 ==

== ENCOUNTER → 2019-07-31 | Outpatient (CLI) | payer MEDICARE, MEDICAID | LOC: WOUNDCARE 10:45 | PROVIDERS: ATTEND Surgery | DX: E11.621 Type 2 diabetes mellitus with foot ulcer (principal); E11.42 Type 2 diabetes mellitus with diabetic polyneuropathy; L97.412 Non-pressure chronic ulcer of right heel and midfoot with fat layer exposed; M86.471 Chronic osteomyelitis with draining sinus, right ankle and foot; I70.234 Atherosclerosis of native arteries of right leg with ulceration of heel and midfoot | CPT/HCPCS: 11042 ==

== ENCOUNTER → 2019-08-07 | Outpatient (CLI) | payer MEDICARE, MEDICAID | LOC: WOUNDCARE 10:27 | PROVIDERS: ATTEND Surgery | DX: E11.621 Type 2 diabetes mellitus with foot ulcer (principal); E11.52 Type 2 diabetes mellitus with diabetic peripheral angiopathy with gangrene; E11.42 Type 2 diabetes mellitus with diabetic polyneuropathy; I70.261 Atherosclerosis of native arteries of extremities with gangrene, right leg; L97.412 Non-pressure chronic ulcer of right heel and midfoot with fat layer exposed; M86.471 Chronic osteomyelitis with draining sinus, right ankle and foot | CPT/HCPCS: 11042 ==

== ENCOUNTER → 2019-08-14 | Outpatient (CLI) | payer MEDICARE, MEDICAID | LOC: WOUNDCARE 10:30 | PROVIDERS: ATTEND Surgery | DX: E11.621 Type 2 diabetes mellitus with foot ulcer (principal); L97.412 Non-pressure chronic ulcer of right heel and midfoot with fat layer exposed; E11.42 Type 2 diabetes mellitus with diabetic polyneuropathy; M86.471 Chronic osteomyelitis with draining sinus, right ankle and foot; I70.234 Atherosclerosis of native arteries of right leg with ulceration of heel and midfoot; Z87.891 Personal history of nicotine dependence; I25.10 Atherosclerotic heart disease of native coronary artery without angina pectoris; E11.51 Type 2 diabetes mellitus with diabetic peripheral angiopathy without gangrene; I10 Essential (primary) hypertension; E78.5 Hyperlipidemia, unspecified; E78.00 Pure hypercholesterolemia, unspecified; F32.9 Major depressive disorder, single episode, unspecified; Z86.73 Personal history of transient ischemic attack (TIA), and cerebral infarction without residual deficits | CPT/HCPCS: 11042 ==

== ENCOUNTER → 2019-08-21 | Outpatient (CLI) | payer MEDICARE, MEDICAID | LOC: WOUNDCARE 10:59 | PROVIDERS: ATTEND Surgery | DX: E11.621 Type 2 diabetes mellitus with foot ulcer (principal); E11.42 Type 2 diabetes mellitus with diabetic polyneuropathy; L97.412 Non-pressure chronic ulcer of right heel and midfoot with fat layer exposed; M86.471 Chronic osteomyelitis with draining sinus, right ankle and foot; I70.234 Atherosclerosis of native arteries of right leg with ulceration of heel and midfoot | CPT/HCPCS: 99212 ==

== ENCOUNTER 2019-10-16 10:24 | Outpatient (RCR) | payer MEDICARE, MEDICAID ==
[2019-07-24 12:25] VITALS: BP 137/76
[2019-08-21 11:50] VITALS: BP 150/71
[2019-09-18 11:15] VITALS: BP 168/89
[~2019-10-16] VITALS: Ht 167.5 cm; Wt 73.9 kg
[2019-10-16 10:20] VITALS: BP 137/69
== END 2019-10-22 | disposition home or self-care (01) ==
LOC: SDC 10:24
PROVIDERS: ATTEND Surgery
DX: Z45.2 Encounter for adjustment and management of vascular access device (principal)
CPT/HCPCS: 96523

== ENCOUNTER 2020-01-15 08:43 | Outpatient (RCR) | payer MEDICARE, MEDICAID ==
[2019-11-13 10:15] VITALS: BP 143/73
[2019-12-11 09:30] VITALS: BP 131/64
[~2020-01-15] VITALS: Ht 167.7 cm
[~2020-01-15 08:43] MED LIST changes: +AMLO-250 PO; -AMLO5TAB9 PO; +ASPI-1238 PO; -ASPI-983 PO
[2020-01-15 08:50] VITALS: BP 167/78
== END 2020-01-15 08:55 | disposition home or self-care (01) ==
LOC: SDC 08:43
PROVIDERS: ATTEND Surgery
DX: Z45.2 Encounter for adjustment and management of vascular access device (principal)
CPT/HCPCS: 96523

== ENCOUNTER 2020-04-08 08:11 | Outpatient (RCR) | payer MEDICARE, MEDICAID ==
[2020-02-12 08:10] VITALS: BP 141/70
[~2020-04-08 08:11] MED LIST changes: -ISOS30TA3 PO; +ISOS30TA82 PO; -LISI10TA2 PO; +LISI10TA25 PO; +SERT-413 PO; -SERT50TA9 PO
[2020-04-08 08:20] VITALS: BP 132/68
[2020-04-17] MEDS ORDERED: ISOS30TA82 PO (15:49)
[2020-04-17] MEDS ORDERED: METF-397 PO (15:49)
[2020-04-17] MEDS ORDERED: OMEG1CAP58 PO (15:49)
[2020-04-17] MEDS ORDERED: GLIP10TA13 PO (15:49)
[2020-04-17] MEDS ORDERED: SERT-413 PO (15:49)
[2020-04-17] MEDS ORDERED: ATOR80TA76 PO (15:49)
[2020-04-17] MEDS ORDERED: CLOP75TA28 PO (15:49)
[2020-04-17] MEDS ORDERED: ASPI-1238 PO (15:49)
[2020-04-23] MEDS ORDERED: PRD20T PO (09:51)
[2020-04-23] MEDS ORDERED: AMOX1TAB12 PO (09:51)
== END 2020-05-12 | disposition home or self-care (01) ==
LOC: SDC 08:11
PROVIDERS: ATTEND Surgery
DX: Z45.2 Encounter for adjustment and management of vascular access device (principal)
CPT/HCPCS: 96523

== ENCOUNTER 2020-04-11 11:46 | Emergency (ER) | payer MEDICARE, MEDICAID ==
[~2020-04-11] VITALS: Ht 179 cm; Wt 76.5 kg
[~2020-04-11 11:46] MED LIST changes: +ISOS30TA3 PO; -ISOS30TA82 PO; +LISI10TA2 PO; -LISI10TA25 PO; -SERT-413 PO; +SERT50TA9 PO
[2020-04-11] MEDS ORDERED: LOPERAMIDE 2 MG (IMODIUM) TABLET ONE (12:05)
[2020-04-11] MEDS ORDERED: LACTATED RINGERS 1,000 ML IV ONE (12:05)
[2020-04-11] MEDS ORDERED: LOPERAMIDE 2 MG (IMODIUM) TABLET PO PRN (12:15)
[2020-04-11] MEDS ORDERED: LACTATED RINGERS 1,000 ML IV SCH (12:15)
[2020-04-11 12:18] VITALS: BP 131/95
--- NOTE | 2020-04-11 12:19 | ED General ---
General Stated Complaint: DIARRHEA,COUGH, COVID EXPOSURE Source of Information: Patient Exam Limitations: No Limitations History of Present Illness Date Seen by Provider: Apr 11, 2020 Time Seen by Provider: 12:16 Initial Comments to ER with a 3-day history of cough general malaise. He has a chronic cough no worse than usual as well as shortness of breath secondary to his chronic bronchitis. He lives with his daughter who is Covid positive. Timing/Duration: 2-3 Days Severity: Moderate Allergies and Home Medications Allergies Coded Allergies: No Known Drug Allergies (Unverified , 01/22/10) Home Medications Aspirin 81 Mg Tablet.dr, 81 MG PO DAILY Prescribed by: TANYA BERNAL on 05/21/19 1130 Atorvastatin Calcium 80 Mg Tablet, 80 MG PO HS Prescribed by: TANYA BERNAL on 05/21/19 1130 Ceftriaxone Sod 1 Gm/Vial Soln, 1 GM IV DAILY To be given in outpatient IV therapy Prescribed by: TANYA BERNAL on 05/21/19 1130 Clopidogrel Bisulfate 75 Mg Tablet, 75 MG PO DAILY Prescribed by: TANYA BERNAL on 05/21/19 1130 Isosorbide Mononitrate 30 Mg Tab.er.24h, 30 MG PO DAILY Prescribed by: TANYA BERNAL on 05/21/19 1130 Lisinopril 10 Mg Tablet, 10 MG PO DAILY Prescribed by: TANYA BRENAL on 05/21/19 1130 Metformin HCl 500 Mg Tablet, 500 MG PO BID Prescribed by: TANYA BERNAL on 05/21/19 1156 Metoprolol Succinate 25 Mg Tab.er.24h, 25 MG PO DAILY Prescribed by: TANYA BERNAL on 05/21/19 1130 Metronidazole/Sodium Chloride 500 Mg/100 Ml Piggyback, 1,000 MG IV DAILY To be given in outpatient IV therapy Prescribed by: TANYA BERNAL on 05/21/19 1130 [place] 3 Polyunsat Fatty Acids 1,000 Mg Cap, 1,000 MG PO BID WITH MEALS Prescribed by: TANYA BERNAL on 05/21/19 1130 Sertraline HCl 50 Mg Tablet, 50 MG PO HS Prescribed by: TANYA BERNAL on 05/21/19 1130 Vancomycin/0.9 % Sod Chloride 1.75 Gm/500 Ml Plast..bag, 1.75 GM IV Q48H To be given in outpatient IV therapy. Prescribed by: TANYA BERNAL on 05/21/19 1130 Patient Home Medication List Home Medication List Reviewed: Yes Review of Systems Review of Systems Constitutional: see HPI; No chills, No fever; weakness EENTM: see HPI Respiratory: see HPI, cough Cardiovascular: no symptoms reported Genitourinary: no symptoms reported Musculoskeletal: no symptoms reported Skin: no symptoms reported Psychiatric/Neurological: No Symptoms Reported Hematologic/Lymphatic: No Symptoms Reported Past [place]-Kohfks-Fsaxay Hx Patient Social History Recent Hopitalizations: No Immunizations Up To Date Date of Pneumonia Vaccine: Jan 23, 2014 Date of Influenza Vaccine: Feb 11, 2019 Past Medical History Surgeries: Yes Appendectomy, Ear Surgery, Orthopedic Respiratory: Yes (CHRONIC BRONCHITIS) Cardiac: Yes Coronary Artery Disease, High Cholesterol, Hypertension Neurological: Yes Neuropathy, Stroke Genitourinary: No Renal Failure Gastrointestinal: Yes (CONSTIPATION) Musculoskeletal: Yes (CURRENTLY OSTEOMYLITIS) Arthritis Endocrine: Yes Diabetes, Non-Insulin dep Cancer: Yes Skin Did You Recieve Any Treatments: No What Type of Treatment Did You: Surgical Intervention Blood Disorders: No Family Medical History Alzheimer's disease 19 MOTHER G8 BROTHER Arthritis 19 FATHER 19 MOTHER G8 BROTHER G8 BROTHER G8 SISTER G8 SISTER G8 SISTER Cardiovascular disease G8 SISTER Cataracts G8 SISTER Completed stroke G8 SISTER Dementia 19 MOTHER Diabetes mellitus 19 MOTHER G8 SISTER DAUGHTER Hypercholesterolemia 19 MOTHER Hypertension 19 MOTHER Myocardial infarction 19 FATHER Respiratory disorder G8 SISTER No Pertinent Family Hx Physical Exam Vital Signs Vital Signs - First Documented 04/11/20 12:18 Temp 36.9 Pulse 79 Resp 20 B/P (MAP) 131/95 (107) Pulse Ox 96 O2 Delivery Room Air Capillary Refill : Height, Weight, BMI Height: 5'9.00" Weight: 179lbs. 0.0oz. 81.559908ms; 26.33 BMI Method: General Appearance: No Apparent Distress, WD/WN, Other (95% room air. ) Eyes: Bilateral Eye Normal Inspection, Bilateral Eye PERRL, Bilateral Eye EOMI Neck: Full Range of Motion, Normal Inspection Respiratory: No Accessory Muscle Use, No Respiratory Distress Cardiovascular: Regular Rate, Rhythm, Normal Peripheral Pulses Gastrointestinal: Normal Bowel Sounds, Non Tender, Soft Extremity: Normal Capillary Refill, Normal Inspection Neurologic/Psychiatric: Alert, Oriented x3 Skin: Normal Color, Warm/Dry Progress/Results/Core Measures Suspected Sepsis SIRS Temperature: Pulse: Respiratory Rate: Laboratory Tests 04/11/20 12:03: White Blood Count 3.3L Blood Pressure / Mean: Laboratory Tests 04/11/20 12:03: Creatinine 1.62H, INR Comment 1.0, Platelet Count 180, Total Bilirubin 0.5 Results/Orders Lab Results Laboratory Tests Test 04/11/20 12:03 Range/Units White Blood Count 3.3 L 4.3-11.0 10^3/uL Red Blood Count 4.33 4.30-5.52 10^6/uL Hemoglobin 12.3 L 13.3-17.7 g/dL Hematocrit 37 L 40-54 % Mean Corpuscular Volume 86 80-99 fL Mean Corpuscular Hemoglobin 28 25-34 pg Mean Corpuscular Hemoglobin Concent 33 32-36 g/dL Red Cell Distribution Width 12.4 10.0-14.5 % Platelet Count 180 130-400 10^3/uL Mean Platelet Volume 9.4 9.0-12.2 fL Immature Granulocyte % (Auto) 0 % Neutrophils (%) (Auto) 66 42-75 % Lymphocytes (%) (Auto) 22 12-44 % Monocytes (%) (Auto) 11 0-12 % Eosinophils (%) (Auto) 1 0-10 % Basophils (%) (Auto) 1 0-10 % Neutrophils # (Auto) 2.1 1.8-7.8 10^3/uL Lymphocytes # (Auto) 0.7 L 1.0-4.0 10^3/uL Monocytes # (Auto) 0.4 0.0-1.0 10^3/uL Eosinophils # (Auto) 0.0 0.0-0.3 10^3/uL Basophils # (Auto) 0.0 0.0-0.1 10^3/uL Immature Granulocyte # (Auto) 0.0 0.0-0.1 10^3/uL Prothrombin Time 13.9 12.2-14.7 SEC INR Comment 1.0 0.8-1.4 Sodium Level 136 135-145 MMOL/L Potassium Level 4.2 3.6-5.0 MMOL/L Chloride Level 105 98-107 MMOL/L Carbon Dioxide Level 21 21-32 MMOL/L Anion Gap 10 5-14 MMOL/L Blood Urea Nitrogen 32 H 7-18 MG/DL Creatinine 1.62 H 0.60-1.30 MG/DL Estimat Glomerular Filtration Rate 42 BUN/Creatinine Ratio 20 Glucose Level 205 H 70-105 MG/DL Calcium Level 8.9 8.5-10.1 MG/DL Corrected Calcium 9.1 8.5-10.1 MG/DL Total Bilirubin 0.5 0.1-1.0 MG/DL Aspartate Amino Transf (AST/SGOT) 24 5-34 U/L Alanine Aminotransferase (ALT/SGPT) 19 0-55 U/L Alkaline Phosphatase 80 40-136 U/L C-Reactive Protein High Sensitivity 7.82 H 0.00-0.50 MG/DL Total Protein 7.7 6.4-8.2 GM/DL Albumin 3.7 3.2-4.5 GM/DL Procalcitonin 0.09 <0.10 NG/ML Coronavirus 2019 ([place]) Negative Negative My Orders Orders - SADAF GALO PHYSICIAN'S ASSISTANT Cbc With Automated Diff (04/11/20 11:50) Comprehensive Metabolic Panel (04/11/20 11:50) Ua Culture If Indicated (04/11/20 11:50) Ed Iv/Invasive Line Start (04/11/20 11:50) Hs C Reactive Protein (04/11/20 11:50) Covid 19 Inhouse Test (04/11/20 11:50) Coronavirus Sars-Cov-2 So 2018 (04/11/20 11:50) Lactated Ringers (Lr 1000 Ml Iv Solution (04/11/20 12:05) Loperamide Tablet (Imodium Tablet) (04/11/20 12:05) Protime With Inr (04/11/20 12:12) Lactated Ringers (Lr 1000 Ml Iv Solution (04/11/20 12:15) Loperamide Tablet (Imodium Tablet) (04/11/20 12:15) Chest 1 View, Ap/Pa Only (04/11/20 12:12) Procalcitonin (Pct) (04/11/20 12:12) Vital Signs/I&O 04/11/20 12:18 Temp 36.9 Pulse 79 Resp 20 B/P (MAP) 131/95 (107) Pulse Ox 96 O2 Delivery Room Air Capillary Refill : Departure Impression Primary Impression: Viral syndrome Disposition: 01 HOME, SELF-CARE Condition: Stable Departure-Patient Inst. Decision time for Depature: 13:31 Referrals: GARCÍA RM MD (PCP/Family) Primary Care Physician Patient Instructions: Viral Syndrome (DC) Add. Discharge Instructions: 1. Return to ER for any worsening. Tylenol and ibuprofen for body aches or fevers. Drink plenty of fluids. Use Imodium [id number] for diarrhea control. Your rapid Covid was negative but I believe you are probably positive given your exposure and your symptoms. SADAF GALO PHYSICIAN'S ASSISTANT Apr 11, 2020 12:19
[2020-04-11 12:30] LABS: BASOPHILS % (AUTO) 1 % (0-10); EOSINOPHILS % (AUTO) 1 % (0-10); HEMATOCRIT 37 % (40-54); HEMOGLOBIN 12.3 g/dL (13.3-17.7); LYMPHOCYTES # (AUTO) 0.7 10^3/uL (1.0-4.0); LYMPHOCYTES % (AUTO) 22 % (12-44); MEAN CORPUSCULAR HEMOGLOBIN 28 pg (25-34); MEAN CORPUSCULAR HGB CONC 33 g/dL (32-36); MEAN CORPUSCULAR VOLUME 86 fL (80-99); MEAN PLATELET VOLUME 9.4 fL (9.0-12.2); MONOCYTES # (AUTO) 0.4 10^3/uL (0.0-1.0); MONOCYTES % (AUTO) 11 % (0-12); NEUTROPHILS # (AUTO) 2.1 10^3/uL (1.8-7.8); NEUTROPHILS % (AUTO) 66 % (42-75); PLATELET COUNT 180 10^3/uL (130-400); WHITE BLOOD COUNT 3.3 10^3/uL (4.3-11.0)
[2020-04-11 12:41] LABS: PROTHROMBIN TIME PATIENT 13.9 SEC (12.2-14.7)
[2020-04-11 12:42] LABS: ALBUMIN 3.7 GM/DL (3.2-4.5); POTASSIUM 4.2 MMOL/L (3.6-5.0)
[2020-04-11 12:43] LABS: CALCIUM 8.9 MG/DL (8.5-10.1)
[2020-04-11 12:44] LABS: TOTAL PROTEIN 7.7 GM/DL (6.4-8.2)
[2020-04-11 12:46] LABS: BILIRUBIN,TOTAL 0.5 MG/DL (0.1-1.0)
[2020-04-11 12:48] LABS: CREATININE SERUM 1.62 MG/DL (0.60-1.30)
--- NOTE | 2020-04-11 13:41 | Diagnostic Imaging Report ---
CHEST 1 VIEW, AP/PA ONLY INDICATION: Cough. COMPARISON: 08/09/2018. FINDINGS: Stable right IJ Port-A-Cath. No consolidation has developed within the visualized lungs. No pleural effusion or pneumothorax. Heart is normal in size. IMPRESSION: 1. No acute cardiopulmonary process by portable radiography. Dictated by: Dictated on workstation # [id number]
== END 2020-04-11 13:58 | disposition home or self-care (01) ==
LOC: EDUNIT# 11:46 → ER 11:49
DX: B34.9 Viral infection, unspecified (principal); E11.9 Type 2 diabetes mellitus without complications; I10 Essential (primary) hypertension; E78.00 Pure hypercholesterolemia, unspecified; Z20.822 Contact with and (suspected) exposure to COVID-19; Z85.828 Personal history of other malignant neoplasm of skin; Z86.73 Personal history of transient ischemic attack (TIA), and cerebral infarction without residual deficits; Z82.61 Family history of arthritis; Z82.49 Family history of ischemic heart disease and other diseases of the circulatory system; Z83.3 Family history of diabetes mellitus; Z79.84 Long term (current) use of oral hypoglycemic drugs; Z79.82 Long term (current) use of aspirin
CPT/HCPCS: 71045; 80053; 84145; 85025; 85610; 86141; 99284; U0002; 36415; 87635

== ENCOUNTER 2020-04-17 09:56 | Inpatient (IN) | payer MEDICARE, MEDICAID ==
[~2020-04-17] VITALS: Ht 175 cm; Wt 73.0 kg
[2020-04-17] MEDS ORDERED: inSUlin (REGULAR) HUMAN 1 UNIT/0.01 ML (CHARGE PER UNIT) SC ONE (10:30)
[2020-04-17] MEDS ORDERED: VANCOMYCIN INJECTION 1,500 MG in NS IV 500 ML 500 ML IV ONE (10:30)
[2020-04-17] MEDS ORDERED: NS IV 1000 ML 1,000 ML IV SCH ×2 (10:30)
[2020-04-17] MEDS ORDERED: CEFEPIME INJECTION 1,000 MG in WATER (STERILE) FOR INJECTION 10 ML IV ONE (10:30)
--- NOTE | 2020-04-17 10:30 | ED General ---
General Chief Complaint: General Problems/Pain Stated Complaint: WEAKNESS Nursing Triage Note: ARRIVED VIA EMS FROM HOME WITH CONT GENARLIZED WEAKNESS, SOA, AND NOT FEELING WELL. HAS BEEN SEEN HERE AND AT THE 'S OFFICE. EMS REPORTS A SAT OF 85%ROOM AIR AFTER WALKING AROUND IN HIS HOUSE Nursing Sepsis Screen: No Definite Risk Source of Information: Patient, EMS Exam Limitations: No Limitations History of Present Illness Date Seen by Provider: Apr 17, 2020 Time Seen by Provider: 09:59 Initial Comments Patient arrives ER by EMS from home with chief complaint for about 1 week has had progressively worsening malaise weakness cough without fever or chills. He was swabbed a week ago as for COVID-19 and it was negative. He followed up a day or [address] Thomas wanting some antibiotics and could not get them. He denies any further x-rays or labs were done at the clinic visit. Today he feels very weak and has a blood sugar of 349 per EMS. He does have some chronic wounds on both feet that he does not think are any worse than usual. He does not follow with anybody for them. No known sick contacts. He denies dysuria nausea chest pain. Allergies and Home Medications Allergies Coded Allergies: No Known Drug Allergies (Unverified , 01/22/10) Home Medications Aspirin 81 Mg Tablet.dr, 81 MG PO DAILY Prescribed by: TANYA BERNAL on 05/21/19 1130 Clopidogrel Bisulfate 75 Mg Tablet, 75 MG PO DAILY Prescribed by: TANYA BERNAL on 05/21/19 1130 Isosorbide Mononitrate 30 Mg Tab.er.24h, 30 MG PO DAILY Prescribed by: TANYA BERNAL on 05/21/19 1130 Metformin HCl 500 Mg Tablet, 500 MG PO BID Prescribed by: TANYA BERNAL on 05/21/19 1156 [place] 3 Polyunsat Fatty Acids 1,000 Mg Cap, 1,000 MG PO BID WITH MEALS Prescribed by: TANYA BERNAL on 05/21/19 1130 Sertraline HCl 50 Mg Tablet, 50 MG PO HS Prescribed by: TANYA BERNAL on 05/21/19 1130 Patient Home Medication List Home Medication List Reviewed: Yes Review of Systems Review of Systems Constitutional: No chills, No diaphoresis EENTM: No ear discharge, No ear pain Respiratory: cough, short of breath Cardiovascular: No chest pain, No palpitations Gastrointestinal: No abdominal pain, No constipation, No diarrhea, No nausea Genitourinary: No discharge, No dysuria Musculoskeletal: No back pain, No joint pain All Other Systems Reviewed Negative Unless Noted: Yes Past Mztnmol-Fttaxw-Xjshph Hx Patient Social History Alcohol Use: Denies Use Smoking Status: Never a Smoker 2nd Hand Smoke Exposure: No Recent Infectious Disease Expo: No Recent Hopitalizations: No Immunizations Up To Date Date of Pneumonia Vaccine: Jan 23, 2014 Date of Influenza Vaccine: Feb 12, 2020 Past Medical History Surgeries: Yes Appendectomy, Ear Surgery, Orthopedic Respiratory: Yes (CHRONIC BRONCHITIS) Cardiac: Yes Coronary Artery Disease, High Cholesterol, Hypertension Neurological: Yes Neuropathy, Stroke Genitourinary: No Renal Failure Gastrointestinal: Yes (CONSTIPATION) Musculoskeletal: Yes (CURRENTLY OSTEOMYLITIS) Arthritis Endocrine: Yes Diabetes, Non-Insulin dep Cancer: Yes Skin Did You Recieve Any Treatments: No What Type of Treatment Did You: Surgical Intervention Blood Disorders: No Family Medical History Alzheimer's disease 19 MOTHER G8 BROTHER Arthritis 19 FATHER 19 MOTHER G8 BROTHER G8 BROTHER G8 SISTER G8 SISTER G8 SISTER Cardiovascular disease G8 SISTER Cataracts G8 SISTER Completed stroke G8 SISTER Dementia 19 MOTHER Diabetes mellitus 19 MOTHER G8 SISTER DAUGHTER Hypercholesterolemia 19 MOTHER Hypertension 19 MOTHER Myocardial infarction 19 FATHER Respiratory disorder G8 SISTER No Pertinent Family Hx Physical Exam-Suspected Sepsis Physical Exam Vital Signs Vital Signs - First Documented Capillary Refill : Less Than 3 Seconds Blood Pressure Mean: 73 Height, Weight, BMI Height: 5'9.00" Weight: 179lbs. 0.0oz. 81.167015hw; 129.00 BMI Method: General Appearance: WD/WN, Moderate Distress Eyes: Bilateral Eye Normal Inspection, Bilateral Eye PERRL, Bilateral Eye EOMI HEENT: PERRL/EOMI, TMs Normal; No Pharynx Normal, No Moist Mucous Membranes Neck: Full Range of Motion, Normal Inspection, Non Tender, Supple Respiratory: Lungs Clear, Normal Breath Sounds, No Accessory Muscle Use, Respiratory Distress (Respiratory rate of 24 with oxygen sats 88% on room air, 92 to 94% on 2 L by nasal cannula.) Cardiovascular: Regular Rate, Rhythm, Normal Peripheral Pulses Gastrointestinal: Normal Bowel Sounds, Non Tender, Soft Extremity: Normal Capillary Refill, Normal Inspection, Non Tender, No Calf Tenderness Neurologic/Psychiatric: Alert, Oriented x3, No Motor/Sensory Deficits Skin: normal color, warm/dry Focused Exam Sepsis Stage: Sepsis Possible Source: Pulmonary Lactate Level 04/17/20 10:10: Lactic Acid Level 2.95*H 04/17/20 12:15: Lactic Acid Level 2.15*H 04/17/20 14:06: Lactic Acid Level 2.48*H Time of Focused Exam: 12:00 Respiratory: Chest Non Tender, Lungs Clear, Normal Breath Sounds, No Accessory Muscle Use, Respiratory Distress (2 L by nasal cannula) Cardiovascular: Regular Rate, Rhythm, Normal Peripheral Pulses Capillary Refill: Less Than 3 Seconds Peripheral Pulses: 2+ Radial Pulses (R), 2+ Radial Pulses (L) Skin: normal color, warm/dry Lactic Acid Level Laboratory Tests Test 04/17/20 12:15 04/17/20 14:06 Lactic Acid Level 2.15 MMOL/L (0.50-2.00) *H 2.48 MMOL/L (0.50-2.00) *H Within 3hrs of presentation: Admin fluids, Admin ABX, Blood cultures prior to ABX's, Focus exam, Lactate level Progress/Results/Core Measures Suspected Sepsis Recent Fever Within 48 Hours: No Infection Criteria Present: Suspected New Infection New/Unexplained Altered Menta: No Sepsis Screen: No Definite Risk SIRS Temperature: Pulse: 88 Respiratory Rate: 16 Laboratory Tests 04/17/20 10:10: White Blood Count 6.6 Blood Pressure 119 /50 Mean: 73 04/17/20 10:10: Lactic Acid Level 2.95*H 04/17/20 12:15: Lactic Acid Level 2.15*H 04/17/20 14:06: Lactic Acid Level 2.48*H Laboratory Tests 04/17/20 10:10: Creatinine 1.76H, INR Comment 1.3, Platelet Count 142, Total Bilirubin 0.6 Results/Orders Lab Results Laboratory Tests Test 04/17/20 10:10 04/17/20 10:35 04/17/20 11:47 04/17/20 12:15 Range/Units White Blood Count 6.6 4.3-11.0 10^3/uL Red Blood Count 4.38 4.30-5.52 10^6/uL Hemoglobin 12.2 L 13.3-17.7 g/dL Hematocrit 38 L 40-54 % Mean Corpuscular Volume 86 80-99 fL Mean Corpuscular Hemoglobin 28 25-34 pg Mean Corpuscular Hemoglobin Concent 33 32-36 g/dL Red Cell Distribution Width 12.7 10.0-14.5 % Platelet Count 142 130-400 10^3/uL Mean Platelet Volume 10.9 9.0-12.2 fL Immature Granulocyte % (Auto) 1 % Neutrophils (%) (Auto) 83 H 42-75 % Lymphocytes (%) (Auto) 9 L 12-44 % Monocytes (%) (Auto) 7 0-12 % Eosinophils (%) (Auto) 0 0-10 % Basophils (%) (Auto) 0 0-10 % Neutrophils # (Auto) 5.5 1.8-7.8 10^3/uL Lymphocytes # (Auto) 0.6 L 1.0-4.0 10^3/uL Monocytes # (Auto) 0.5 0.0-1.0 10^3/uL Eosinophils # (Auto) 0.0 0.0-0.3 10^3/uL Basophils # (Auto) 0.0 0.0-0.1 10^3/uL Immature Granulocyte # (Auto) 0.0 0.0-0.1 10^3/uL Prothrombin Time 16.8 H 12.2-14.7 SEC INR Comment 1.3 0.8-1.4 Activated Partial Thromboplast Time 36 H 24-35 SEC Blood Gas Puncture Site LT RAD Blood Gas Patient Temperature 97.6 Arterial Blood pH 7.42 7.37-7.43 Arterial Blood Partial Pressure CO2 32 L 35-45 MMHG Arterial Blood Partial Pressure O2 71 L 79-93 MMHG Arterial Blood HCO3 21 L 23-27 MMOL/L Arterial Blood Total CO2 21.7 21.0-31.0 MMOL/L Arterial Blood Oxygen Saturation 92 L 94-100 % Arterial Blood Base Excess -3.1 L -2.5-2.5 MMOL/L Kelvin Test YES-POS Blood Gas Ventilator Setting NO Blood Gas Inspired Oxygen 2 L Sodium Level 140 135-145 MMOL/L Potassium Level 4.2 3.6-5.0 MMOL/L Chloride Level 106 98-107 MMOL/L Carbon Dioxide Level 21 21-32 MMOL/L Anion Gap 13 5-14 MMOL/L Blood Urea Nitrogen 50 H 7-18 MG/DL Creatinine 1.76 H 0.60-1.30 MG/DL Estimat Glomerular Filtration Rate 38 BUN/Creatinine Ratio 28 Glucose Level 372 H 70-105 MG/DL Lactic Acid Level 2.95 *H 2.15 *H 0.50-2.00 MMOL/L Calcium Level 8.9 8.5-10.1 MG/DL Corrected Calcium 9.8 8.5-10.1 MG/DL Total Bilirubin 0.6 0.1-1.0 MG/DL Aspartate Amino Transf (AST/SGOT) 27 5-34 U/L Alanine Aminotransferase (ALT/SGPT) 16 0-55 U/L Alkaline Phosphatase 69 40-136 U/L Total Protein 7.5 6.4-8.2 GM/DL Albumin 2.9 L 3.2-4.5 GM/DL Coronavirus 2019 ([place]) Negative Negative Glucometer 311 H 265 H 70-110 MG/DL Test 04/17/20 12:31 04/17/20 14:06 Range/Units Urine Color YELLOW Urine Clarity CLEAR Urine pH 5.5 5-9 Urine Specific Nelson >=1.030 1.016-1.022 Urine Protein 3+ H NEGATIVE Urine Glucose (UA) TRACE H NEGATIVE Urine Ketones NEGATIVE NEGATIVE Urine Nitrite NEGATIVE NEGATIVE Urine Bilirubin NEGATIVE NEGATIVE Urine Urobilinogen 0.2 < = 1.0 MG/DL Urine Leukocyte Esterase NEGATIVE NEGATIVE Urine RBC (Auto) 2+ H NEGATIVE Urine RBC 2-5 H /HPF Urine WBC 0-2 /HPF Urine Squamous Epithelial Cells NONE /HPF Urine Crystals NONE /LPF Urine Bacteria NEGATIVE /HPF Urine Casts PRESENT /LPF Urine Hyaline Casts 0-2 H /LPF Urine Granular Casts 5-10 H /LPF Urine Mucus NEGATIVE /LPF Urine Culture Indicated NO Lactic Acid Level 2.48 *H 0.50-2.00 MMOL/L Micro Results Microbiology 04/17/20 Influenza Types A,B Antigen (MERCED) - Final, Complete My Orders Orders - DON PATEL Cbc With Automated Diff (04/17/20 10:21) Comprehensive Metabolic Panel (04/17/20 10:21) Blood Culture (04/17/20 10:21) Sputum Culture (04/17/20 10:21) Urinalysis (04/17/20 10:21) Urine Culture (04/17/20 10:21) Protime With Inr (04/17/20 10:21) Partial Thromboplastin Time (04/17/20 10:21) Chest 1 View, Ap/Pa Only (04/17/20 10:21) Ed Iv/Invasive Line Start (04/17/20 10:21) Ed Iv/Invasive Line Start (04/17/20 10:21) Vital Signs Adult Sepsis Patie Q15M (04/17/20 10:21) O2 (04/17/20 10:21) Remove Rings In Anticipation O (04/17/20 10:21) Lactic Acid Analyzer (04/17/20 10:21) Influenza A And B Antigens (04/17/20 10:21) Ns Iv 1000 Ml (Sodium Chloride 0.9%) (04/17/20 10:30) Cefepime Injection (Maxipime Injection) (04/17/20 10:30) Vancomycin Injection (Vancomycin Injecti (04/17/20 10:30) Insulin (Regular) Human (Novolin R (Per (04/17/20 10:30) Ed Iv/Invasive Line Start (04/17/20 10:21) Ns Iv 1000 Ml (Sodium Chloride 0.9%) (04/17/20 10:30) Covid 19 Inhouse Test (04/17/20 10:27) Accucheck Stat ONCE (04/17/20 10:28) Arterial Blood Gas (04/17/20 10:56) Medications Given in ED Current Medications Medications Dose Ordered Sig/Zan Route Start Time Stop Time Status Last Admin Dose Admin Cefepime HCl 1000 mg/Sterile Water 10 ml @ 200 mls/hr ONCE ONCE IV 04/17/20 10:30 04/17/20 10:32 DC 04/17/20 10:36 200 MLS/HR Insulin Human Regular 10 unit ONCE ONCE SC 04/17/20 10:30 04/17/20 10:31 DC 04/17/20 10:37 10 UNIT Vancomycin HCl 1500 mg/Sodium Chloride 500 ml @ 257 mls/hr ONCE ONCE IV 04/17/20 10:30 04/17/20 12:26 DC 04/17/20 11:11 257 MLS/HR Vital Signs/I&O 04/17/20 04/17/20 04/17/20 09:56 09:56 13:30 Temp 36.4 Pulse 88 89 Resp 16 16 B/P (MAP) 119/50 (73) 169/75 Pulse Ox 93 93 O2 Delivery Nasal Cannula Nasal Cannula Nasal Cannula O2 Flow Rate 2.00 2.00 2.00 Capillary Refill : Less Than 3 Seconds Blood Pressure Mean: 73 Progress Note : Time: 12:09 Progress Note ABG demonstrates hypoxemia even despite 2 L of oxygen by nasal cannula. He is feeling mildly better after some IV fluids and antibiotics. Initially there were concerns because his blood pressure is right around 100 systolic so broad- spectrum antibiotics were initiated however his blood pressure has maintained well at 140 over 70s since the initiation of fluids. His heart rate has gone down from upper 90s to lower 90s. I think it would be appropriate for management on the floor with Rocephin and azithromycin. With the patient's permission we did discuss the case with his daughter. Departure Communication (Admissions) Time/Spoke to Admitting Phy: 12:05 Discussed the case with Dr. Watt and she agrees to admit the patient to the floor on oxygen, Rocephin, and azithromycin Impression Primary Impression: Pneumonia Qualified Codes: J18.9 - Pneumonia, unspecified organism Additional Impressions: Acute respiratory failure with hypoxemia Sepsis Qualified Codes: A41.9 - Sepsis, unspecified organism; R65.20 - Severe sepsis without septic shock; J96.01 - Acute respiratory failure with hypoxia Disposition: ADMITTED INPATIENT Condition: Stable Admissions Decision to Admit Reason: Admit from ER (General) Decision to Admit/Date: Apr 17, 2020 Time/Decision to Admit Time: 11:10 Departure-Patient Inst. Referrals: GARCÍA RM MD (PCP/Family) Primary Care Physician DON PATEL Apr 17, 2020 10:29
[2020-04-17 10:40] LABS: BASOPHILS % (AUTO) 0 % (0-10); EOSINOPHILS % (AUTO) 0 % (0-10); HEMATOCRIT 38 % (40-54); HEMOGLOBIN 12.2 g/dL (13.3-17.7); LYMPHOCYTES # (AUTO) 0.6 10^3/uL (1.0-4.0); LYMPHOCYTES % (AUTO) 9 % (12-44); MEAN CORPUSCULAR HEMOGLOBIN 28 pg (25-34); MEAN CORPUSCULAR HGB CONC 33 g/dL (32-36); MEAN CORPUSCULAR VOLUME 86 fL (80-99); MEAN PLATELET VOLUME 10.9 fL (9.0-12.2); MONOCYTES # (AUTO) 0.5 10^3/uL (0.0-1.0); MONOCYTES % (AUTO) 7 % (0-12); NEUTROPHILS # (AUTO) 5.5 10^3/uL (1.8-7.8); NEUTROPHILS % (AUTO) 83 % (42-75); PLATELET COUNT 142 10^3/uL (130-400); WHITE BLOOD COUNT 6.6 10^3/uL (4.3-11.0)
--- NOTE | 2020-04-17 10:49 | NUR ---
pharmacy notified of needing vanco.
[2020-04-17 10:53] LABS: ALBUMIN 2.9 GM/DL (3.2-4.5); INR 1.3 (0.8-1.4); POTASSIUM 4.2 MMOL/L (3.6-5.0); PROTHROMBIN TIME PATIENT 16.8 SEC (12.2-14.7)
[2020-04-17 10:54] LABS: CALCIUM 8.9 MG/DL (8.5-10.1)
[2020-04-17 10:55] LABS: TOTAL PROTEIN 7.5 GM/DL (6.4-8.2)
[2020-04-17 10:57] LABS: BILIRUBIN,TOTAL 0.6 MG/DL (0.1-1.0)
[2020-04-17 10:59] LABS: CREATININE SERUM 1.76 MG/DL (0.60-1.30)
[2020-04-17 11:01] LABS: ABG BASE EXCESS -3.1 MMOL/L (-2.5-2.5); ABG OXYGEN SATURATION 92 % (94-100); ABG PCO2 32 MMHG (35-45); ABG PH 7.42 (7.37-7.43); ABG PO2 71 MMHG (79-93); ABG TCO2 21.7 MMOL/L (21.0-31.0); ALLENS TEST YES-POS; INSPIRED O2 2 L; PATIENT TEMP 97.6; VENTILATOR NO
--- NOTE | 2020-04-17 11:01 | Diagnostic Imaging Report ---
Indication: Weakness and shortness of air. Time of exam: 10:41 AM Correlation is made with prior chest from 04/11/2020. Heart size normal. There is some airspace infiltrate right mid and lower lung crandall suggestive of pneumonia. Left lung is clear. No effusion or pneumothorax is detected. Right-sided line has tip overlying the SVC. Impression: Development of right-sided airspace infiltrate consistent with pneumonia. Dictated by: Dictated on workstation # [id number]
--- NOTE | 2020-04-17 12:22 | NUR ---
DR Watt here to see pt.
[2020-04-17 12:36] LABS: BILIRUBIN,URINE NEGATIVE (NEGATIVE); CLARITY,URINE CLEAR; COLOR,URINE YELLOW; GLUCOSE, URINE (UA) TRACE (NEGATIVE); KETONES,URINE NEGATIVE (NEGATIVE); LEUKOCYTE ESTERASE ,URINE NEGATIVE (NEGATIVE); NITRITE,URINE NEGATIVE (NEGATIVE); PH,URINE 5.5 (5-9); PROTEIN,URINE 3+ (NEGATIVE)
[2020-04-17 12:43] LABS: BACTERIA,URINE NEGATIVE /HPF; WBC,URINE 0-2 /HPF
[2020-04-17 12:44] LABS: HYALINE CASTS, URINE 0-2 /LPF
--- NOTE | 2020-04-17 13:00 | History & Physical-Hospitalist ---
History of Present Illness HPI/Chief Complaint CC: Fever HPI: This is a Pt of [facility] Dr. 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 who presents to the ER with fever and SOB, second covid test this week was negative, he was found to have a right lower lobe pneumonia, placed on antibiotics, IV fluids and will be maintained on fourth floor inpatient status, he has had a significant amount of weightloss fairly recently and he still lives with his daughter Source: patient, RN/MD, old records Exam Limitations: no limitations Date Seen 04/17/20 Time Seen by a Provider: 12:30 Attending Physician Maria Guadalupe Watt DO PCP Marty Reynoso MD Referring Physician Date of Admission Apr 17, 2020 at 12:12 Home Medications & Allergies Home Medications Reviewed patient Home Medication Reconciliation performed by pharmacy medication reconciliations donor services technician and/or nursing. Patients Allergies have been reviewed. Allergies Allergies Coded Allergies No Known Drug Allergies (Pzmhayrhjy48/4/10) Past Awasmjh-Rdxylj-Eqympc Hx Past Med/Social Hx: Reviewed Nursing Past Med/Soc Hx, Reviewed and Corrections made Patient Social History Marrital Status: Employed/Student: retired Alcohol Use: Denies Use Smoking Status: Never a Smoker 2nd Hand Smoke Exposure: No Recent Foreign Travel: No Contact w/other who traveled: No Recent Hopitalizations: No Recent Infectious Disease Expo: No Immunizations Up To Date Date of Pneumonia Vaccine: Jan 23, 2014 Date of Influenza Vaccine: Feb 12, 2020 Past Medical History Surgeries: Appendectomy, Ear Surgery, Orthopedic Cardiac: Coronary Artery Disease, High Cholesterol, Hypertension Neurological: Neuropathy, Stroke Genitourinary: Renal Failure Musculoskeletal: Arthritis Endocrine: Diabetes, Non-Insulin dep Cancer: Skin Did You Recieve Any Treatments: No What Type of Treatment Did You: Surgical Intervention History of Blood Disorders: No Family History Alzheimer's disease 19 MOTHER G8 BROTHER Arthritis 19 FATHER 19 MOTHER G8 BROTHER G8 BROTHER G8 SISTER G8 SISTER G8 SISTER Cardiovascular disease G8 SISTER Cataracts G8 SISTER Completed stroke G8 SISTER Dementia 19 MOTHER Diabetes mellitus 19 MOTHER G8 SISTER DAUGHTER Hypercholesterolemia 19 MOTHER Hypertension 19 MOTHER Myocardial infarction 19 FATHER Respiratory disorder G8 SISTER No Pertinent Family Hx Review of Systems Constitutional: see HPI, fever, weakness Respiratory: cough, dyspnea on exertion Physical Exam Physical Exam Vital Signs Vital Signs - First Documented 04/17/20 14:48 FiO2 28 Capillary Refill : Less Than 3 Seconds Height, Weight, BMI Height: 5'9.00" Weight: 179lbs. 0.0oz. 81.148776uf; 129.00 BMI Method: General Appearance: No Apparent Distress, Chronically ill Eyes: Right Eye Normal Inspection, Right Eye PERRL HEENT: PERRL/EOMI, Normal ENT Inspection, Pharynx Normal, Moist Mucous Membranes Neck: Full Range of Motion, Normal Inspection, Non Tender Respiratory: Chest Non Tender, Lungs Clear, Normal Breath Sounds, No Accessory Muscle Use, No Respiratory Distress Cardiovascular: Regular Rate, Rhythm, No Edema, No Gallop, No JVD, No Murmur, Normal Peripheral Pulses Gastrointestinal: Normal Bowel Sounds, No Organomegaly, No Pulsatile Mass, Non Tender, Soft Back: Normal Inspection, No CVA Tenderness, No Vertebral Tenderness Extremity: Normal Capillary Refill, Normal Inspection, Normal Range of Motion, Non Tender, No Calf Tenderness, No Pedal Edema Neurologic/Psychiatric: Alert, Oriented x3, No Motor/Sensory Deficits, Normal Mood/Affect Skin: Normal Color, Warm/Dry Lymphatic: No Adenopathy Results Results/Procedures Labs Laboratory Tests 04/17/20 10:10 04/18/20 04:50 Patient resulted labs reviewed. Assessment/Plan Admission Diagnosis Assessment: PNA Fever Hypoxia Sepsis DM HTN HLP PVD CAD Plan: Abx IVF Admission Status: Inpatient Order (span 2 midnights) Reason for Inpatient Admission: pna with DM Diagnosis/Problems Diagnosis/Problems (1) Pneumonia Status: Acute Qualifiers: Pneumonia type: due to unspecified organism Laterality: right Lung location: unspecified part of lung Qualified Codes: J18.9 - Pneumonia, unspec ified organism (2) Sepsis Status: Acute Qualifiers: Sepsis type: sepsis due to unspecified organism Sepsis acute organ dysfunction status: with acute organ dysfunction Severe sepsis acute organ dysfunction type: acute respiratory failure Acute respiratory failure type: with hypoxia Severe sepsis shock status: without septic shock Qualified Codes: A41.9 - Sepsis, unspecified organism; R65.20 - Severe sepsis without septic shock; J96.01 - Acute respiratory failure with hypoxia (3) Acute respiratory failure with hypoxemia Status: Acute (4) Multiple vessel coronary artery disease (5) Noncompliance (6) Lipid disorder (7) Hypertension (8) Renal insufficiency MARIA GUADALUPE WATT DO Apr 17, 2020 12:59
--- NOTE | 2020-04-17 13:08 | NUR ---
ATTEMPT TO CALL REPORT ET NURSE TO CALL BACK.
[2020-04-17] MEDS ORDERED: ACETAMINOPHEN 500 MG TAB (TYLENOL) PO PRN ×2 (14:00→20:45)
[2020-04-17] MEDS ORDERED: CATHETER FLUSH 10 ML SYR IV PRN (14:00)
[2020-04-17] MEDS ORDERED: ONDANSETRON 4 MG/2 ML (SDV) Z0FRAN IV PRN (14:00)
[2020-04-17 14:48] VITALS: BP 119/50
[2020-04-17] MEDS: cefTRIAXone 1,000 MG/SWFI 10 ML IV PUSH IV SCH ×2 (14:48)
[2020-04-17] MEDS: NS IV 1000 ML 1,000 ML IV SCH ×2 (14:49→21:47)
[2020-04-17] MEDS: AZITHROMYCIN 500 MG/NS 250 ML IVPB IV SCH ×2 (15:28)
[2020-04-17] MEDS ORDERED: GLIP10TA13 PO (15:49)
[2020-04-17] MEDS ORDERED: ISOS30TA3 PO (15:49)
[2020-04-17] MEDS ORDERED: ASPI-1238 PO (15:49)
[2020-04-17] MEDS ORDERED: METF-397 PO (15:49)
[2020-04-17] MEDS ORDERED: ATOR80TA76 PO (15:49)
[2020-04-17] MEDS ORDERED: SERT50TA9 PO (15:49)
[2020-04-17] MEDS ORDERED: OMEG1CAP58 PO (15:49)
[2020-04-17] MEDS ORDERED: CLOP75TA28 PO (15:49)
--- NOTE | 2020-04-17 15:51 | NUR ---
SPOKE WITH THE PT, CALLED HIS DAUGHTER (ROBERT) AND WENT THRU THE EXT MED HISTORY TO COMPLETE THE MED REC ACCORDING TO THE PT (AND HIS DAUGHTER VERIFIED) DR. RM DISCONTINUED LISINOPRIL 10MG DUE TO PTS BP DROPPING TO LOW. THERE IS A MEDICATION LIST ON THE PTS CHART THAT WAS WRITTEN BY ROBERT. WHEN I SPOKE WITH HER I ASKED ABOUT ATORVASTATIN 80MG (IT IS SHOWN ON THE EXT MED HISTORY BUT ITS NOT ON THE MED LIST) SHE IS SURE THE PT IS STILL TAKING. OTC MEDS: ASPIRIN 81 OMEGA 3
[2020-04-17 15:57] VITALS: BP 131/63
[2020-04-17 20:00] VITALS: BP 127/59
[2020-04-17 20:18] VITALS: BP 131/63
[2020-04-17] MEDS ORDERED: RT-ALBUTEROL/IPRATROPIUM 3 ML (DUONEB) VIAL INH PRN (20:30)
[2020-04-17] MEDS ORDERED: HYDROcodone/APAP 5 MG/325 MG (LORTAB) TAB PO PRN (20:45)
[2020-04-17] MEDS ORDERED: LOPERAMIDE 2 MG (IMODIUM) TABLET PO PRN (20:45)
[2020-04-17] MEDS ORDERED: polyethylene glycoL POWDER 17 GM (MIRALAX) PACK PO PRN (20:45)
[2020-04-17] MEDS ORDERED: CALCIUM CARBONATE 500 MG (TUMS) TAB.CHEW PO PRN (20:45)
[2020-04-17] MEDS ORDERED: DOCUSATE SODIUM 100 MG (COLACE) CAP PO PRN (20:45)
[2020-04-17] MEDS ORDERED: ONDANSETRON 4 MG/2 ML (SDV) Z0FRAN IVP PRN (20:45)
[2020-04-17] MEDS ORDERED: diphenhydrAMINE 25 MG TAB (BENADRYL) PO PRN (20:45)
[2020-04-17] MEDS ORDERED: ALPRAZolam 0.25 MG (XANAX) TAB PO PRN (20:45)
[2020-04-17] MEDS ORDERED: morphine INJ 10 MG/ML 1ML (SYR OR VIAL) IVP PRN (21:00)
[2020-04-17] MEDS: SENNA W/DOCUSATE (SENOKOT S) TABLET PO SCH (21:35)
[2020-04-17] MEDS: ENOXAPARIN 40 MG/0.4 ML (LOVENOX) SYR SC SCH (21:35)
[2020-04-17] MEDS: inSUlin ASPART (NovoLOG) 1 UNIT/0.01 ML (CHARGE PER UNIT) SC SCH (21:47)
[2020-04-18] VITALS (8 sets, daily range): BP systolic 99–171; BP diastolic 51–77
[2020-04-18] MEDS: inSUlin ASPART (NovoLOG) 1 UNIT/0.01 ML (CHARGE PER UNIT) SC SCH ×4 (04:57→20:37)
[2020-04-18 05:11] LABS: BASOPHILS % (AUTO) 0 % (0-10); EOSINOPHILS # (AUTO) 0.1 10^3/uL (0.0-0.3); EOSINOPHILS % (AUTO) 1 % (0-10); HEMATOCRIT 30 % (40-54); HEMOGLOBIN 9.9 g/dL (13.3-17.7); LYMPHOCYTES # (AUTO) 0.7 10^3/uL (1.0-4.0); LYMPHOCYTES % (AUTO) 13 % (12-44); MEAN CORPUSCULAR HEMOGLOBIN 28 pg (25-34); MEAN CORPUSCULAR HGB CONC 33 g/dL (32-36); MEAN CORPUSCULAR VOLUME 86 fL (80-99); MEAN PLATELET VOLUME 10.6 fL (9.0-12.2); MONOCYTES # (AUTO) 0.5 10^3/uL (0.0-1.0); MONOCYTES % (AUTO) 9 % (0-12); NEUTROPHILS % (AUTO) 76 % (42-75); PLATELET COUNT 87 10^3/uL (130-400); WHITE BLOOD COUNT 5.3 10^3/uL (4.3-11.0)
[2020-04-18 05:19] LABS: ALBUMIN 2.3 GM/DL (3.2-4.5); POTASSIUM 3.7 MMOL/L (3.6-5.0)
[2020-04-18 05:22] LABS: TOTAL PROTEIN 6.1 GM/DL (6.4-8.2)
[2020-04-18 05:24] LABS: BILIRUBIN,TOTAL 0.5 MG/DL (0.1-1.0)
[2020-04-18 05:25] LABS: CREATININE SERUM 1.25 MG/DL (0.60-1.30)
[2020-04-18] MEDS: RT-ALBUTEROL/IPRATROPIUM 3 ML (DUONEB) VIAL INH SCH ×5 (07:54→21:26)
--- NOTE | 2020-04-18 07:55 | Diagnostic Imaging Report ---
INDICATION: Respiratory infection Portable chest 6:02 AM Right IJ Port-A-Cath tip projects over the SVC. There is a streaky infiltrate in the right lung which is predominantly alveolar. Appears slightly more consolidated than on the previous comparison exam. There is a small patchy infiltrate in the left lower lung. IMPRESSION: Bilateral pulmonary infiltrates worse on the right than on the left with more dense consolidation compared to the previous day. Dictated by: Dictated on workstation # [id number]
[2020-04-18] MEDS ORDERED: morphine INJ 4 MG/ML 1 ML (VIAL/SYRINGE) IVP PRN (08:15)
[2020-04-18] MEDS: NS IV 1000 ML 1,000 ML IV SCH (09:47)
[2020-04-18] MEDS: ASPIRIN E.C. 81 MG (ECOTRIN) TAB PO SCH (09:48)
[2020-04-18] MEDS: SENNA W/DOCUSATE (SENOKOT S) TABLET PO SCH ×2 (09:49→20:37)
[2020-04-18] MEDS: CLOPIDOGREL 75 MG (PLAVIX) TABLET PO SCH (09:50)
[2020-04-18] MEDS: OMEGA 3 (FISH OIL) 1000 MG CAP PO SCH (09:50)
[2020-04-18] MEDS: SERTRALINE 50 MG (ZOLOFT) TABLET PO SCH (09:51)
[2020-04-18] MEDS: ISOSORBIDE MONONITRATE 30 MG (IMDUR) TAB PO SCH (09:51)
--- NOTE | 2020-04-18 11:58 | Progress Note - Hospitalist ---
Subjective HPI/CC On Admission Date Seen by Provider: Apr 18, 2020 Time Seen by Provider: 11:00 CC: Fever HPI: This is a Pt of [facility] Dr. 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 who presents to the ER with fever and SOB, second covid test this week was negative, he was found to have a right lower lobe pneumonia, placed on antibiotics, IV fluids and will be maintained on fourth floor inpatient status, he has had a significant amount of weightloss fairly recently and he still lives with his daughter Subjective/Events-last exam Patient eating and drinking well HLIVF WBC nl Hgb 9.9 Creat 1.25 2L/min O2 now Review of Systems General: Fatigue, Malaise Pulmonary: Dyspnea, Cough Focused Exam Lactate Level 04/17/20 12:15: Lactic Acid Level 2.15*H 04/17/20 14:06: Lactic Acid Level 2.48*H 04/17/20 16:13: Lactic Acid Level 1.47 Time of Focused Exam: 12:00 Objective Exam Vital Signs Vital Signs Date Time Temp Pulse Resp B/P (MAP) Pulse Ox O2 Delivery O2 Flow Rate FiO2 04/19/20 07:12 94 Nasal Cannula 2.00 04/19/20 03:34 37.0 83 20 158/72 (100) 04/18/20 10:09 28 Capillary Refill : Less Than 3 SecondsLess Than 3 Seconds General Appearance: No Apparent Distress, WD/WN, Chronically ill Respiratory: Chest Non Tender, Lungs Clear, Normal Breath Sounds, No Accessory Muscle Use, No Respiratory Distress, Decreased Breath Sounds Cardiovascular: Regular Rate, Rhythm, No Edema, No Gallop, No JVD, No Murmur, Normal Peripheral Pulses Neurologic/Psychiatric: Alert, Oriented x3, No Motor/Sensory Deficits, Normal Mood/Affect Results/Procedures Lab Laboratory Tests 04/19/20 07:10 Patient resulted labs reviewed. Assessment/Plan Assessment and Plan Assess & Plan/Chief Complaint Assessment: PNA Fever Hypoxia Sepsis DM HTN HLP PVD CAD Plan: Abx IVF 04/18/20: HLIVF Continue abx Lovenox PT OT Diagnosis/Problems Diagnosis/Problems (1) Pneumonia Status: Acute Qualifiers: Pneumonia type: due to unspecified organism Laterality: right Lung location: unspecified part of lung Qualified Codes: J18.9 - Pneumonia, unspecified organism (2) Sepsis Status: Acute Qualifiers: Sepsis type: sepsis due to unspecified organism Sepsis acute organ dysfunction status: with acute organ dysfunction Severe sepsis acute organ dysfunction type: acute respiratory failure Acute respiratory failure type: with hypoxia Severe sepsis shock status: without septic shock Qualified Codes: A41.9 - Sepsis, unspecified organism; R65.20 - Severe sepsis without septic shock; J96.01 - Acute respiratory failure with hypoxia (3) Acute respiratory failure with hypoxemia Status: Acute (4) Multiple vessel coronary artery disease (5) Noncompliance (6) Lipid disorder (7) Hypertension (8) Renal insufficiency DAVEY SEAMAN DO Apr 18, 2020 11:58
[2020-04-18] MEDS: VANCOMYCIN 1 GM/NS 250 ML IVPB IV SCH ×2 (12:39)
--- NOTE | 2020-04-18 12:57 | NUR ---
"RD ASSESSMENT PMHx: CAD; hypercholesterolemia; HTN; stroke; renal failure; DM; hx of amputations; PT INTERACTION: Pt was awake and pleasant during nutrition consult for MST score. Pt states current appetite is getting better, as it had been poor for about 1week. Note PO intake 100% x1meal, per chart review. Pt states following a regular diet at home, and has some issues chewing as he is missing teeth. Pt states some recent issues with nausea and diarrhea, and that his last BM was 04/18. Note pt currently on bowel regimen of senna BID, per chart review. Pt states current DM management is pretty good. Note last HbA1c of 8.8 (05/24/2019), per chart review. Pt states recent wt loss, but was unsure of amount/timeframe. Note unable to determine recent wt hx, per chart review. Given current PO intake and wt hx, pt is not at risk for malnutrition per ASPEN guidelines. Est. kcal needs: 3597-9604 kcal | 25-30 kcal/kg Est. Pro needs: 58-73 g Pro | 0.8-1.0 g Pro/kg PES STATEMENT: Inadequate oral intake (NI-2.1) related to loss of appetite, nausea, and diarrhea, as evidenced by pt interview. INTERVENTION: Continue with current diet order of CHO 60g/m 3snack diet. Offered diet education on DM management, but pt declined at this time. May attempt to offer again prior to discharge. Will continue to follow and reassess as pt needs, intake, and status change. Justin HITCHCOCK, MS RD LD [phone] cell"
[2020-04-18] MEDS: AZITHROMYCIN 500 MG/NS 250 ML IVPB IV SCH ×2 (15:56)
[2020-04-18] MEDS: cefTRIAXone 1,000 MG/SWFI 10 ML IV PUSH IV SCH ×2 (15:56)
[2020-04-18] MEDS: ENOXAPARIN 40 MG/0.4 ML (LOVENOX) SYR SC SCH (20:36)
[2020-04-19] MEDS: RT-ALBUTEROL/IPRATROPIUM 3 ML (DUONEB) VIAL INH SCH ×6 (01:25→22:03)
[2020-04-19 03:34] VITALS: BP 158/72
[2020-04-19] MEDS: inSUlin ASPART (NovoLOG) 1 UNIT/0.01 ML (CHARGE PER UNIT) SC SCH ×4 (06:11→20:09)
[2020-04-19 07:33] LABS: BASOPHILS % (AUTO) 0 % (0-10); EOSINOPHILS % (AUTO) 1 % (0-10); HEMATOCRIT 28 % (40-54); HEMOGLOBIN 9.3 g/dL (13.3-17.7); LYMPHOCYTES # (AUTO) 0.4 10^3/uL (1.0-4.0); LYMPHOCYTES % (AUTO) 9 % (12-44); MEAN CORPUSCULAR HEMOGLOBIN 28 pg (25-34); MEAN CORPUSCULAR HGB CONC 33 g/dL (32-36); MEAN CORPUSCULAR VOLUME 85 fL (80-99); MEAN PLATELET VOLUME 11.5 fL (9.0-12.2); MONOCYTES # (AUTO) 0.4 10^3/uL (0.0-1.0); MONOCYTES % (AUTO) 9 % (0-12); NEUTROPHILS # (AUTO) 3.3 10^3/uL (1.8-7.8); NEUTROPHILS % (AUTO) 80 % (42-75); PLATELET COUNT 50 10^3/uL (130-400); WHITE BLOOD COUNT 4.1 10^3/uL (4.3-11.0)
[2020-04-19 07:43] LABS: ALBUMIN 2.2 GM/DL (3.2-4.5); POTASSIUM 3.7 MMOL/L (3.6-5.0)
[2020-04-19 07:44] LABS: CALCIUM 7.8 MG/DL (8.5-10.1)
[2020-04-19 07:45] LABS: TOTAL PROTEIN 5.9 GM/DL (6.4-8.2)
[2020-04-19 07:47] LABS: BILIRUBIN,TOTAL 0.5 MG/DL (0.1-1.0)
[2020-04-19 07:49] LABS: CREATININE SERUM 1.24 MG/DL (0.60-1.30)
[2020-04-19 08:00] VITALS: BP 158/68
[2020-04-19] MEDS: OMEGA 3 (FISH OIL) 1000 MG CAP PO SCH (08:58)
[2020-04-19] MEDS: ISOSORBIDE MONONITRATE 30 MG (IMDUR) TAB PO SCH (08:58)
[2020-04-19] MEDS: CLOPIDOGREL 75 MG (PLAVIX) TABLET PO SCH (08:58)
[2020-04-19] MEDS: ASPIRIN E.C. 81 MG (ECOTRIN) TAB PO SCH (08:58)
[2020-04-19] MEDS: SERTRALINE 50 MG (ZOLOFT) TABLET PO SCH (08:58)
[2020-04-19] MEDS: SENNA W/DOCUSATE (SENOKOT S) TABLET PO SCH ×2 (09:03→20:58)
--- NOTE | 2020-04-19 09:21 | Physical Therapy Evaluation ---
PT Evaluation-General Medical Diagnosis Admission Date Apr 17, 2020 at 12:12 Medical Diagnosis: Sepsis Onset Date: Apr 17, 2020 Therapy Diagnosis Therapy Diagnosis: weakness Height/Weight Height (Feet): 5 Height (Inches): 9.00 Weight (Pounds): 179 Weight (Ounces): 0.0 Precautions Precautions/Isolations: Fall Prevention, Standard Precautions Weight Bear Status Full Weight Bearing Full Weight Bearing Referral Physician: Alysa Reason for Referral: Evaluation/Treatment Social History Home: Single Level Current Living Status: Children Prior Prior Level of Function SCALE: Activities may be completed with or without assistive devices. 9-Qqwnesauaz-itjzcxr completes the activity by him/herself with no assistance f rom a helper. 5-Set-up or Clean-up Assistance-helper sets up or cleans up; patient completes activity. [place] assists only prior to or following the activity. 4-Supervision or Touching Assistance-helper provides verbal cues and/or touching/steadying and/or contact guard assistance as patient completes activity. Assistance may be provided throughout the activity or intermittently. 3-Partial/Moderate Assistance-helper does LESS THAN HALF the effort. [place] lifts, holds or supports trunk or limbs, but provides less than half the effort. 2-Substantial/Maximal Assistance-helper does MORE THAN HALF the effort. [place] lifts or holds trunk or limbs and provides more than half the effort. 2-Itfiuochs-pdlsnh does ALL the effort. Patient does none of the effort to complete the activity. Or, the assistance of 2 or more helpers is required for the patient to complete the activity. If activity was not attempted, code reason: 7-Patient Refused. 9-Not Applicable-not attempted and the patient did not perform the activity before the current illness, exacerbation or injury. 10-Not Attempted due to Environmental Limitations-(lack of equipment, weather restraints, etc.). 88-Not Attempted due to Medical Conditions or Safety Concerns. Bed Mobility: 6 Transfers (B,C,W/C): 6 Gait: 5 Stairs: 6 Indoor Mobility (Ambulation): Independent Stairs: Independent Prior Devices Use: Walker PT Evaluation-Current Subjective States that he is feeling a lot better. Objective Patient Orientation: Person, Place, Time Attachments: Oxygen ROM/Strength ROM Upper Extremities WFL ROM Lower Extremities WFL Strength Upper Extremities 4/5 grossly Strength Lower Extremities 4/5 grossly Integumentary/Posture Integumentary intact Bowel Incontinence: No Bladder Incontinence: No Neuromuscular (Tone, Coordination, Reflexes) intact Transfers Roll Left to Right (QC): 5 Sit to Lying (QC): 5 Lying to Sitting/Side of Bed(Q: 5 Sit to Stand (QC): 5 Chair/Wyc-zq-Povua Xfer(QC): 5 Gait Does the Patient Walk?: Yes Mode of Locomotion: Walk Anticipated Mode of Locomotion: Walk Walk 10 feet (QC): 5 Walk 50 ft with 2 Turns(QC): 5 Walk 150 ft (QC): 5 Distance: 200' Gait Assistive Device: FWW Balance Sitting Static: Normal Sitting Dynamic: Good Standing Static: Fair Standing Dynamic: Fair Assessment/Needs 75 y.o. male admitted with suspected sepsis. The patient has a problem list of decreased strength, difficulty with gait, balance limitations and ADL li mitations. He should do well with skilled therapy and be able to return home with his daughter. Rehab Potential: Good PT Short Term Goals Short Term Goals Time Frame: Apr 26, 2020 Roll Left & Right: 6 Sit to lyin Lying to sitting on side of be: 6 Sit to stand: 6 Chair/nvp-kj-zbowe transfer: 6 Toilet transfer: 6 Car transfer: 6 Walk 10 feet: 6 Walk 50 feet with two turns: 6 Walk 150 feet: 6 1 step (curb): 6 PT Fpc Goals Fpc Goals PT Fpc Goals Time Frame: May 03, 2020 Walk 10 feet (QC): 6 Walk 50ft with 2 Turns (QC): 6 Walk 150 ft (QC): 6 Walking 10ft on Uneven Surface: 6 1 Step (curb) (QC): 6 4 Steps (QC): 6 12 Steps (QC): 6 Picking up an Object (QC): 6 PT Plan Problem List Problem List: Activity Tolerance, Functional Strength, Balance, Gait, Transfer, Bed Mobility Treatment/Plan Treatment Plan: Continue Plan of Care Treatment Plan: Bed Mobility, Functional Activity Shari, Functional Strength, Gait, Safety, Therapeutic Exercise, Transfers Treatment Duration: May 03, 2020 Frequency: 11 times per week Estimated Hrs Per Day: .5 hour per day Patient and/or Family Agrees t: Yes Time/GCodes Time In: 854 Time Out: 914 Total Billed Treatment Time: 20 Total Billed Treatment 1, EV Low Complexity x 20' MARK ASHBY PT Apr 19, 2020 09:21
[2020-04-19] MEDS: VANCOMYCIN 1 GM/NS 250 ML IVPB IV SCH ×2 (11:59)
[2020-04-19 12:19] VITALS: BP 115/57
--- NOTE | 2020-04-19 12:40 | Pulmonary Consultation ---
History of Present Illness History of Present Illness Date Seen by Provider: Apr 19, 2020 Time Seen by Provider: 12:33 Date of Admission Allergies and Home Medications Allergies Coded Allergies: No Known Drug Allergies (Unverified , 01/22/10) Home Medications Aspirin 81 Mg Tablet.dr, 81 MG PO DAILY, (Reported) Atorvastatin Calcium 80 Mg Tablet, 80 MG PO DAILY, (Reported) Clopidogrel Bisulfate 75 Mg Tablet, 75 MG PO DAILY, (Reported) Glipizide 10 Mg Tablet, 10 MG PO DAILY, (Reported) Isosorbide Mononitrate 30 Mg Tab.er.24h, 30 MG PO DAILY, (Reported) Metformin HCl 500 Mg Tablet, 500 MG PO BID, (Reported) [place]-3 Fatty Acids/Fish Oil 1 Each Capsule, 1 EACH PO DAILY, (Reported) Sertraline HCl 50 Mg Tablet, 50 MG PO DAILY, (Reported) Past Aleoavn-Rdsxgf-Onkjkx Hx Past Med/Social Hx: Reviewed Nursing Past Med/Soc Hx, Reviewed and Corrections made Patient Social History Alcohol Use: Denies Use Smoking Status: Never a Smoker 2nd Hand Smoke Exposure: No Recent Infectious Disease Expo: No Recent Hopitalizations: No Have you traveled recently?: No Alcohol Use?: No Immunizations Up To Date Date of Pneumonia Vaccine: Jan 23, 2014 Date of Influenza Vaccine: Feb 12, 2020 Past Medical History Surgeries: Yes Appendectomy, Ear Surgery, Orthopedic Respiratory: Yes (CHRONIC BRONCHITIS) Cardiac: Yes Coronary Artery Disease, High Cholesterol, Hypertension Neurological: Yes Neuropathy, Stroke Genitourinary: No Renal Failure Gastrointestinal: Yes (CONSTIPATION) Musculoskeletal: Yes (CURRENTLY OSTEOMYLITIS) Arthritis Endocrine: Yes Diabetes, Non-Insulin dep Cancer: Yes Skin Did You Recieve Any Treatments: No What Type of Treatment Did You: Surgical Intervention Blood Disorders: No Family Medical History Alzheimer's disease 19 MOTHER G8 BROTHER Arthritis 19 FATHER 19 MOTHER G8 BROTHER G8 BROTHER G8 SISTER G8 SISTER G8 SISTER Cardiovascular disease G8 SISTER Cataracts G8 SISTER Completed stroke G8 SISTER Dementia 19 MOTHER Diabetes mellitus 19 MOTHER G8 SISTER DAUGHTER Hypercholesterolemia 19 MOTHER Hypertension 19 MOTHER Myocardial infarction 19 FATHER Respiratory disorder G8 SISTER No Pertinent Family Hx Review of Systems Time Seen by Provider: 12:43 Sepsis Event Evaluation Height, Weight, BMI Height: 5'9.00" Weight: 179lbs. 0.0oz. 81.355347ro; 23.83 BMI Method: Exam Exam Vital Signs Date Time Temp Pulse Resp B/P (MAP) Pulse Ox O2 Delivery O2 Flow Rate FiO2 04/19/20 12:19 37.0 72 22 115/57 (76) 91 Nasal Cannula 5.00 04/19/20 11:32 94 Nasal Cannula 2.00 04/19/20 09:00 90 Nasal Cannula 1.00 04/19/20 08:00 37.0 91 22 158/68 (98) 90 Nasal Cannula 2.00 04/19/20 07:12 94 Nasal Cannula 2.00 04/19/20 03:34 37.0 83 20 158/72 (100) 94 Nasal Cannula 2.00 04/19/20 01:25 90 Nasal Cannula 2.00 04/18/20 23:28 37.0 79 18 131/63 (85) 94 Nasal Cannula 2.00 04/18/20 21:25 92 Nasal Cannula 2.00 04/18/20 20:37 Nasal Cannula 2.00 04/18/20 19:18 36.7 88 18 99/54 (69) 94 Nasal Cannula 2.00 04/18/20 18:31 92 Nasal Cannula 2.00 04/18/20 16:00 36.4 89 18 104/51 (68) 91 Nasal Cannula 2.00 04/18/20 14:44 91 Nasal Cannula 2.00 I & O 04/19/20 06:59 Intake Total 4495 ml Output Total 1260 ml Balance 3235 ml Height & Weight Height: 5'9.00" Weight: 179lbs. 0.0oz. 81.861045ob; 23.83 BMI Method: General Appearance: No Apparent Distress, WD/WN, Chronically ill HEENT: PERRL/EOMI, Normal ENT Inspection, Pharynx Normal, Moist Mucous Membranes Neck: Full Range of Motion, Normal Inspection, Non Tender Respiratory: Chest Non Tender, Lungs Clear, Normal Breath Sounds, No Accessory Muscle Use, No Respiratory Distress, Decreased Breath Sounds Cardiovascular: Regular Rate, Rhythm, No Edema, No Gallop, No JVD, No Murmur, Normal Peripheral Pulses Capillary Refill: Less Than 3 Seconds Peripheral Pulses: 2+ Radial Pulses (R), 2+ Radial Pulses (L) Extremity: Normal Capillary Refill, Normal Inspection, Normal Range of Motion, Non Tender, No Calf Tenderness, No Pedal Edema Neurologic/Psychiatric: Alert, Oriented x3, No Motor/Sensory Deficits, Normal Mood/Affect Skin: Normal Color, Warm/Dry Lymphatic: No Adenopathy Results Lab Laboratory Tests 04/18/20 04:50 04/19/20 07:10 Assessment/Plan Assessment/Plan Bilateral pneumonia with sepsis and hypoxya -oxygen currently requiring 5 liters NC -Currently on Rocephin, Vanco, Azithromycin -change to Zosyn and Vanco -antonio cultures pending Dysphagia r/o aspiration -Consult speech therapy Metabolic lactic acidosis -Monitor Pancytopenia -Monitor Worsening thrombocytopenia -Hold lovenox -Check hit and DIC panel Severe CAD -Continue plavix for now (discussed with Dr. Watt who knows him well) NIA PARRISH DO Apr 19, 2020 12:40
[2020-04-19] MEDS ORDERED: PIPERACILLIN/TAZOBACTAM (BULK) 4.5 GM in NS (IVPB) 100 ML IV NR (13:00)
--- NOTE | 2020-04-19 13:01 | Progress Note - Hospitalist ---
Subjective HPI/CC On Admission Date Seen by Provider: Apr 19, 2020 Time Seen by Provider: 12:00 CC: Fever HPI: This is a Pt of [facility] Dr. 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 Low platelets will prompt DC Lovenox Review of Systems Pulmonary: Dyspnea, Cough Focused Exam Lactate Level 04/17/20 12:15: Lactic Acid Level 2.15*H 04/17/20 14:06: Lactic Acid Level 2.48*H 04/17/20 16:13: Lactic Acid Level 1.47 Time of Focused Exam: 12:00 Objective Exam Vital Signs Vital Signs Date Time Temp Pulse Resp B/P (MAP) Pulse Ox O2 Delivery O2 Flow Rate FiO2 04/20/20 04:19 36.6 84 20 156/80 (105) 95 Nasal Cannula 5.00 04/18/20 10:09 28 Capillary Refill : Less Than 3 SecondsLess Than 3 Seconds General Appearance: No Apparent Distress, WD/WN, Chronically ill Respiratory: No Accessory Muscle Use, No Respiratory Distress, Crackles, Decreased Breath Sounds Cardiovascular: Regular Rate, Rhythm Neurologic/Psychiatric: Alert, Oriented x3, No Motor/Sensory Deficits, Normal Mood/Affect Results/Procedures Lab Laboratory Tests 04/19/20 07:10 Patient resulted labs reviewed. Assessment/Plan Assessment and Plan Assess & Plan/Chief Complaint Assessment: PNA Fever Hypoxia Sepsis DM HTN HLP PVD CAD Plan: Abx IVF 04/18/20: HLIVF Continue abx Lovenox PT OT 04/19/20: Aspiration risk? DC Lovenox due to low platelets Diagnosis/Problems Diagnosis/Problems (1) Pneumonia Status: Acute Qualifiers: Pneumonia type: due to unspecified organism Laterality: right Lung location: unspecified part of lung Qualified Codes: J18.9 - Pneumonia, unspecified organism (2) Sepsis Status: Acute Qualifiers: Sepsis type: sepsis due to unspecified organism Sepsis acute organ dysfunction status: with acute organ dysfunction Severe sepsis acute organ dysfunction type: acute respiratory failure Acute respiratory failure type: with hypoxia Severe sepsis shock status: without septic shock Qualified Codes: A41.9 - Sepsis, unspecified organism; R65.20 - Severe sepsis without septic shock; J96.01 - Acute respiratory failure with hypoxia (3) Acute respiratory failure with hypoxemia Status: Acute (4) Multiple vessel coronary artery disease (5) Noncompliance (6) Lipid disorder (7) Hypertension (8) Renal insufficiency DAVEY SEAMAN DO Apr 19, 2020 13:01
[2020-04-19] MEDS: PANTOPRAZOLE 40 MG (PROTONIX) VIAL IV SCH (13:13)
[2020-04-19 14:01] LABS: PHOSPHORUS 2.5 MG/DL (2.3-4.7)
[2020-04-19 14:03] LABS: MAGNESIUM 2.1 MG/DL (1.6-2.4)
[2020-04-19 14:37] LABS: FIBRIN DEGRADATION PRODUCTS 6.83 UG/ML (0.00-0.49); INR 1.4 (0.8-1.4); PROTHROMBIN TIME PATIENT 17.1 SEC (12.2-14.7)
[2020-04-19 15:56] VITALS: BP 112/57
[2020-04-19 19:18] VITALS: BP 139/65
[2020-04-19] MEDS: PIPERACILLIN/TAZO 4.5 GM/NS 100 ML IV SCH ×2 (20:59)
[2020-04-19] MEDS: MELATONIN 3 MG TABLET PO PRN (20:59)
[2020-04-19 23:58] VITALS: BP 135/66
[2020-04-20] MEDS: RT-ALBUTEROL/IPRATROPIUM 3 ML (DUONEB) VIAL INH SCH ×6 (02:14→21:27)
[2020-04-20 04:19] VITALS: BP 156/80
[2020-04-20] MEDS: inSUlin ASPART (NovoLOG) 1 UNIT/0.01 ML (CHARGE PER UNIT) SC SCH ×4 (06:20→20:41)
[2020-04-20] MEDS: PIPERACILLIN/TAZO 4.5 GM/NS 100 ML IV SCH ×6 (06:47→22:38)
--- NOTE | 2020-04-20 06:47 | Pulmonary Progress Note ---
Subjective Time Seen by a Provider: 06:40 Subjective/Events-last exam No complications noted. Sepsis Event Evaluation Height, Weight, BMI Height: 5'9.00" Weight: 179lbs. 0.0oz. 81.912687ww; 23.83 BMI Method: Focused Exam Lactate Level 04/17/20 12:15: Lactic Acid Level 2.15*H 04/17/20 14:06: Lactic Acid Level 2.48*H 04/17/20 16:13: Lactic Acid Level 1.47 Time of Focused Exam: 12:00 Exam Exam Vital Signs Date Time Temp Pulse Resp B/P (MAP) Pulse Ox O2 Delivery O2 Flow Rate FiO2 04/20/20 04:19 36.6 84 20 156/80 (105) 95 Nasal Cannula 5.00 04/20/20 02:15 92 Nasal Cannula 5.00 04/19/20 23:58 36.8 83 18 135/66 (89) 93 Nasal Cannula 5.00 04/19/20 22:04 93 Nasal Cannula 5.00 04/19/20 20:00 Nasal Cannula 5.00 04/19/20 19:18 36.9 88 18 139/65 (89) 94 Nasal Cannula 5.00 04/19/20 18:55 92 Nasal Cannula 5.00 04/19/20 15:56 36.6 95 18 112/57 (75) 92 Nasal Cannula 5.00 04/19/20 15:04 92 Nasal Cannula 5.00 04/19/20 12:38 94 Nasal Cannula 5.00 04/19/20 12:19 37.0 72 22 115/57 (76) 91 Nasal Cannula 5.00 04/19/20 11:32 94 Nasal Cannula 2.00 04/19/20 09:00 90 Nasal Cannula 1.00 04/19/20 08:00 37.0 91 22 158/68 (98) 90 Nasal Cannula 2.00 04/19/20 07:12 94 Nasal Cannula 2.00 I & O 04/20/20 06:59 Intake Total 1937 ml Output Total 800 ml Balance 1137 ml Height & Weight Height: 5'9.00" Weight: 179lbs. 0.0oz. 81.863833cg; 23.83 BMI Method: General Appearance: No Apparent Distress, WD/WN, Chronically ill HEENT: PERRL/EOMI, Normal ENT Inspection, Pharynx Normal, Moist Mucous Membranes Neck: Full Range of Motion, Normal Inspection, Non Tender Respiratory: Chest Non Tender, Lungs Clear, Normal Breath Sounds, No Accessory Muscle Use, No Respiratory Distress, Decreased Breath Sounds Cardiovascular: Regular Rate, Rhythm, No Edema, No Gallop, No JVD, No Murmur, Normal Peripheral Pulses Capillary Refill: Less Than 3 Seconds Peripheral Pulses: 2+ Radial Pulses (R), 2+ Radial Pulses (L) Extremity: Normal Capillary Refill, Normal Inspection, Normal Range of Motion, Non Tender, No Calf Tenderness, No Pedal Edema Neurologic/Psychiatric: Alert, Oriented x3, No Motor/Sensory Deficits, Normal Mood/Affect Skin: Normal Color, Warm/Dry Lymphatic: No Adenopathy Results Lab Laboratory Tests 04/19/20 07:10 Assessment/Plan Assessment/Plan Bilateral pneumonia with sepsis and hypoxya -oxygen currently requiring 5 liters NC -Zosyn and Vanco -antonio cultures pending -Check CTA of chest -Will add abd/pelvis r/o mass -Check Echo cardiogram Dysphagia r/o aspiration -Consult speech therapy Metabolic lactic acidosis -Monitor Pancytopenia -Monitor Worsening thrombocytopenia -Hold lovenox -Check hit and DIC panel Severe CAD -Continue plavix for now (discussed with Dr. Watt who knows him well) NIA PARRISH DO Apr 20, 2020 06:47
[2020-04-20 08:00] VITALS: BP 164/79
[2020-04-20] MEDS ORDERED: HOLD METFORMIN - RECEIVED CONTRAST 20 ML VIAL IV SCH (08:30)
[2020-04-20] MEDS ORDERED: CATHETER FLUSH 10 ML SYR IV PRN (08:30)
[2020-04-20] MEDS ORDERED: IOHEXOL 350 MG/ML 100 ML (OMNIPAQUE 350) VIAL IV ONE (08:30)
[2020-04-20] MEDS ORDERED: NS 100 ML (IVPB) BAG IV ONE (08:30)
--- NOTE | 2020-04-20 08:57 | Diagnostic Imaging Report ---
EXAMINATION: CT angiography chest with and without CT abdomen & pelvis with and without. TECHNIQUE: Noncontrast enhanced helical images were obtained through the chest, abdomen and pelvis. Contrast enhanced thin section helical images were obtained through the chest, abdomen and pelvis with intravenous contrast timed for the optimal opacification of the arterial structures per departmental CTA protocol. Post-processing, retro reconstructions and interpretation of angiographic images of the vessels was performed. 3D MIP reconstructions were performed and reviewed. All CT scans use one or more of the following dose optimizing techniques: automated exposure control, MA and/or KvP adjustment based on a patient size and exam type, or iterative reconstruction. HISTORY: Pneumonia, generalized weakness COMPARISON: None available. FINDINGS: There is no pulmonary embolism. There are moderate bilateral airspace opacities, right greater than left. There is a small right pleural effusion. No pneumothorax. There is no axillary or supraclavicular lymphadenopathy. Enlarged mediastinal lymph nodes are likely reactive with nodes measuring up to 15 mm in short axis. Right-sided port catheter is present. Heart size is normal. There are moderate coronary artery calcifications. No pericardial effusion. Aorta is normal in caliber. The liver is normal without focal lesion. There is no biliary ductal dilation. Small stone is present in the cystic duct. No gallbladder wall thickening. Pancreas is normal. 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 Adrenal glands are normal. The kidneys are normal. There is no hydronephrosis. Urinary bladder is normal. Visualized bowel is normal in caliber without obstruction or inflammation. No free fluid or air. No abdominal or pelvic lymphadenopathy. Aorta is normal in caliber without aneurysm. There are no suspicious osseus lesions. IMPRESSION: 1. No pulmonary embolism. 2. Moderate bilateral airspace opacities, right greater than left, most suggestive of an acute infection. 3. Splenic infarct, no other abnormality is seen in the abdomen or pelvis. Dictated by: Dictated on workstation # [id number]
[2020-04-20 09:09] LABS: ALBUMIN 2.2 GM/DL (3.2-4.5)
[2020-04-20 09:10] LABS: POTASSIUM 3.6 MMOL/L (3.6-5.0)
[2020-04-20 09:11] LABS: CALCIUM 7.9 MG/DL (8.5-10.1)
[2020-04-20] MEDS: ASPIRIN E.C. 81 MG (ECOTRIN) TAB PO SCH (09:12)
[2020-04-20] MEDS: PANTOPRAZOLE 40 MG (PROTONIX) VIAL IV SCH (09:12)
[2020-04-20] MEDS: SERTRALINE 50 MG (ZOLOFT) TABLET PO SCH (09:13)
[2020-04-20] MEDS: CLOPIDOGREL 75 MG (PLAVIX) TABLET PO SCH (09:13)
[2020-04-20] MEDS: ISOSORBIDE MONONITRATE 30 MG (IMDUR) TAB PO SCH (09:13)
[2020-04-20] MEDS: OMEGA 3 (FISH OIL) 1000 MG CAP PO SCH (09:13)
[2020-04-20 09:14] LABS: BILIRUBIN,TOTAL 0.5 MG/DL (0.1-1.0)
[2020-04-20] MEDS: SENNA W/DOCUSATE (SENOKOT S) TABLET PO SCH ×2 (09:15→20:51)
[2020-04-20 09:16] LABS: BASOPHILS % (AUTO) 0 % (0-10); CREATININE SERUM 1.37 MG/DL (0.60-1.30); EOSINOPHILS # (AUTO) 0.1 10^3/uL (0.0-0.3); EOSINOPHILS % (AUTO) 2 % (0-10); HEMATOCRIT 29 % (40-54); HEMOGLOBIN 9.5 g/dL (13.3-17.7); LYMPHOCYTES # (AUTO) 0.4 10^3/uL (1.0-4.0); LYMPHOCYTES % (AUTO) 8 % (12-44); MEAN CORPUSCULAR HEMOGLOBIN 28 pg (25-34); MEAN CORPUSCULAR HGB CONC 33 g/dL (32-36); MEAN CORPUSCULAR VOLUME 85 fL (80-99); MEAN PLATELET VOLUME 11.9 fL (9.0-12.2); MONOCYTES # (AUTO) 0.4 10^3/uL (0.0-1.0); MONOCYTES % (AUTO) 10 % (0-12); NEUTROPHILS # (AUTO) 3.4 10^3/uL (1.8-7.8); NEUTROPHILS % (AUTO) 79 % (42-75); WHITE BLOOD COUNT 4.3 10^3/uL (4.3-11.0)
[2020-04-20 09:48] LABS: PLATELET COUNT 30 10^3/uL (130-400)
[2020-04-20 12:10] VITALS: BP 134/68
--- NOTE | 2020-04-20 12:27 | Progress Note - Hospitalist ---
Subjective HPI/CC On Admission Date Seen by Provider: Apr 20, 2020 Time Seen by Provider: 11:30 CC: Fever HPI: This is a Pt of [facility] Dr[facility] 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 who presents to the ER with fever and SOB, second covid test this week was negative, he was found to have a right lower lobe pneumonia, placed on antibiotics, IV fluids and will be maintained on fourth floor inpatient status, he has had a significant amount of weightloss fairly recently and he still lives with his daughter Subjective/Events-last exam Patient doing better Dysphagia improved on diet change Platelets dropped again No bleeding CT scan ordered by Dr Nuvia Pedersen assessed him also Review of Systems General: Fatigue, Malaise Pulmonary: Dyspnea, Cough Focused Exam Lactate Level Time of Focused Exam: 12:00 Objective Exam Vital Signs Vital Signs Date Time Temp Pulse Resp B/P (MAP) Pulse Ox O2 Delivery O2 Flow Rate FiO2 04/20/20 18:05 92 Nasal Cannula 4.00 04/20/20 15:53 37.5 87 18 135/68 (90) 04/18/20 10:09 28 Capillary Refill : Less Than 3 SecondsLess Than 3 Seconds General Appearance: No Apparent Distress, WD/WN, Chronically ill Respiratory: Chest Non Tender, Lungs Clear, Normal Breath Sounds, No Accessory Muscle Use, No Respiratory Distress, Crackles (RLL) Cardiovascular: Regular Rate, Rhythm, No Edema, No Gallop, No JVD, No Murmur, Normal Peripheral Pulses Neurologic/Psychiatric: Alert, Oriented x3, No Motor/Sensory Deficits, Normal Mood/Affect Results/Procedures Lab Laboratory Tests 04/20/20 08:48 Patient resulted labs reviewed. Assessment/Plan Assessment and Plan Assess & Plan/Chief Complaint Assessment: PNA Fever Hypoxia Sepsis DM HTN HLP PVD CAD Plan: Abx IVF 04/18/20: HLIVF Continue abx Lovenox PT OT 04/19/20: Aspiration risk? DC Lovenox due to low platelets 04/20/20: CT scan Hold Lovenox Monitor closely Diagnosis/Problems Diagnosis/Problems (1) Pneumonia Status: Acute Qualifiers: Pneumonia type: due to unspecified organism Laterality: right Lung location: unspecified part of lung Qualified Codes: J18.9 - Pneumonia, unspecified organism (2) Sepsis Status: Acute Qualifiers: Sepsis type: sepsis due to unspecified organism Sepsis acute organ dysfunction status: with acute organ dysfunction Severe sepsis acute organ dysfunction type: acute respiratory failure Acute respiratory failure type: with hypoxia Severe sepsis shock status: without septic shock Qualified Codes: A41.9 - Sepsis, unspecified organism; R65.20 - Severe sepsis without septic shock; J96.01 - Acute respiratory failure with hypoxia (3) Acute respiratory failure with hypoxemia Status: Acute (4) Multiple vessel coronary artery disease (5) Noncompliance (6) Lipid disorder (7) Hypertension (8) Renal insufficiency DAVEY SEAMAN DO Apr 20, 2020 12:27
[2020-04-20 15:53] VITALS: BP 135/68
[2020-04-20 20:12] VITALS: BP 148/78
[2020-04-20] MEDS: MELATONIN 3 MG TABLET PO PRN (20:51)
[2020-04-21] VITALS (7 sets, daily range): BP systolic 112–166; BP diastolic 56–79
[2020-04-21] MEDS: RT-ALBUTEROL/IPRATROPIUM 3 ML (DUONEB) VIAL INH SCH ×6 (01:19→21:56)
[2020-04-21 04:08] LABS: BASOPHILS % (AUTO) 0 % (0-10)
[2020-04-21 04:17] LABS: EOSINOPHILS # (AUTO) 0.2 10^3/uL (0.0-0.3); EOSINOPHILS % (AUTO) 3 % (0-10); HEMATOCRIT 27 % (40-54); LYMPHOCYTES # (AUTO) 0.6 10^3/uL (1.0-4.0); LYMPHOCYTES % (AUTO) 11 % (12-44); MEAN CORPUSCULAR HEMOGLOBIN 28 pg (25-34); MEAN CORPUSCULAR HGB CONC 34 g/dL (32-36); MEAN CORPUSCULAR VOLUME 85 fL (80-99); MEAN PLATELET VOLUME 13.4 fL (9.0-12.2); MONOCYTES # (AUTO) 0.6 10^3/uL (0.0-1.0); MONOCYTES % (AUTO) 11 % (0-12); NEUTROPHILS % (AUTO) 74 % (42-75); WHITE BLOOD COUNT 5.4 10^3/uL (4.3-11.0)
[2020-04-21 04:30] LABS: PLATELET COUNT 21 10^3/uL (130-400)
[2020-04-21 04:35] LABS: ALBUMIN 2.1 GM/DL (3.2-4.5)
[2020-04-21 04:36] LABS: POTASSIUM 3.7 MMOL/L (3.6-5.0)
[2020-04-21 04:37] LABS: CALCIUM 7.8 MG/DL (8.5-10.1)
[2020-04-21 04:38] LABS: TOTAL PROTEIN 6.1 GM/DL (6.4-8.2)
[2020-04-21 04:40] LABS: BILIRUBIN,TOTAL 0.5 MG/DL (0.1-1.0)
[2020-04-21 04:42] LABS: CREATININE SERUM 1.35 MG/DL (0.60-1.30)
[2020-04-21] MEDS: inSUlin ASPART (NovoLOG) 1 UNIT/0.01 ML (CHARGE PER UNIT) SC SCH ×4 (04:43→20:22)
[2020-04-21] MEDS: PIPERACILLIN/TAZO 4.5 GM/NS 100 ML IV SCH ×6 (06:22→20:16)
--- NOTE | 2020-04-21 06:35 | NUR ---
notified dr Watt critical lab value platelet 21 from 30 yesterday. No new orders
[2020-04-21] MEDS: ASPIRIN E.C. 81 MG (ECOTRIN) TAB PO SCH (08:37)
[2020-04-21] MEDS: SERTRALINE 50 MG (ZOLOFT) TABLET PO SCH (08:37)
[2020-04-21] MEDS: SENNA W/DOCUSATE (SENOKOT S) TABLET PO SCH ×2 (08:37→20:16)
[2020-04-21] MEDS: PANTOPRAZOLE 40 MG (PROTONIX) VIAL IV SCH (08:37)
[2020-04-21] MEDS: OMEGA 3 (FISH OIL) 1000 MG CAP PO SCH (08:37)
[2020-04-21] MEDS: CLOPIDOGREL 75 MG (PLAVIX) TABLET PO SCH (08:38)
[2020-04-21] MEDS: ISOSORBIDE MONONITRATE 30 MG (IMDUR) TAB PO SCH (08:38)
--- NOTE | 2020-04-21 08:46 | ST Dysphagia Evaluation ---
Speech Evaluation-General Medical Diagnosis Sepsis Onset Date: Apr 17, 2020 Therapy Diagnosis Therapy Diagnosis: Oropharyngeal Dysphagia Precautions Precautions: Aspiration Referral Referring Physician: Dr. Pedersen Social History Current Living Status: Children Speech PLF/Current-Dysphagia Prior Level of Function Patient lives with his children who are available to assist him with his daily needs. Subjective Patient was pleasant and cooperative with the Bedside Dysphagia Evaluation. Oral Motor Skills Denture Type: Full- Upper & Lower Current Food Consistancy: Dysphagia Soft, Thin Liquids Ability to Follow Directions: Good Oral Expression Ability: No Impairment Patient is LIME Voice Voice Phonatory-Based Quality: Normal Voice Pitch: Normal Voice Loudness: Mildly Soft/Quiet Face Facial Symmetry: Symmetrical Oral-Facial Assessment Oral-Facial Dentition: Normal Smile: Normal Lingual Protrusion: Normal Lingual ROM: Normal Lingual Strength: Normal Pharynx Velopharyngeal Move.: Normal Volitional Dry Swallow: Yes Voluntary Cough: Yes Can Clear Throat Volitionally: Yes Dysphagia Evaluation Consistencies Presented: Thin Liquid, Mechanical Soft, Ground, Pureed Oral phase is within normal range of function for all consistencies presented. Pharyngeal phase is within normal range of function for all consistencies presented. Dietary Recommendations: Ground Liquid Recommendations: Thin Swallowing Precautions: Alternate Liquids/Solids, Double Swallow, Decreased Bolus 1/2 Tsp, Liquids from Cup, Liquids from Straw, Small Bites and Sips, Sitting Upright 90 Degrees, Sitting 90 Degrees 30 Post Intake Dysphagia Evaluation Summary Patient is a pleasant 75 y/o male who was admitted to the hospital due to sepsis. Patient was referred for a BDE which was completed this morning. Patient was placed on Dysphagia3 Advanced/ground without any difficulty noted. Patient states he is just getting his appetite back and is eating better now. Patient was presented thin liquids via cup and straw without difficulty. Patient also consumed puree, mechanical soft and ground without overt s/s of aspiration. Patient is recommended to continue current diet level. Barriers to Learning Patient's age, medical history Speech-Plan Patient/Family Goals Patient/Family Goals: Patient is presumed to be returning to his prior living environment upon discharge. Treatment Plan Speech Therapy Treatment Plan: Discontinue ST Treatment Duration: Apr 21, 2020 Frequency: 1 time per week Estimated Hrs Per Day: .25 hour per day Rehab Potential: Good Barriers to Learning: Patient's age, medical history Pt/Family Agrees to Plan: Yes Safety Risks/Education Teaching Recipient: Patient Teaching Methods: Demonstration, Discussion Response to Teaching: Verbalize Understanding, Return Demonstration Education Topics Provided: Safety of oral intake, diet level Time Speech Therapy Time In: 08:20 Speech Therapy Time Out: 08:40 Total Billed Time: 20 Billed Treatment Time 1CRISSY DYST No WHORTON, BETHANIA ST Apr 21, 2020 08:46
--- NOTE | 2020-04-21 08:55 | Pulmonary Progress Note ---
Subjective Time Seen by a Provider: 08:50 Subjective/Events-last exam No complications noted. Sepsis Event Evaluation Height, Weight, BMI Height: 5'9.00" Weight: 179lbs. 0.0oz. 81.396579cu; 23.83 BMI Method: Focused Exam Time of Focused Exam: 12:00 Exam Exam Vital Signs Date Time Temp Pulse Resp B/P (MAP) Pulse Ox O2 Delivery O2 Flow Rate FiO2 04/21/20 08:00 36.5 84 18 137/71 (93) 92 Nasal Cannula 5.00 04/21/20 06:31 91 Nasal Cannula 4.00 04/21/20 04:00 37.0 73 17 166/79 (108) 94 Nasal Cannula 5.00 04/21/20 01:19 92 Nasal Cannula 4.00 04/21/20 00:00 37.0 80 19 146/71 (96) 94 Nasal Cannula 5.00 04/20/20 21:27 92 Nasal Cannula 4.00 04/20/20 20:12 37.5 88 18 148/78 (101) 92 Nasal Cannula 5.00 04/20/20 20:00 Nasal Cannula 5.00 04/20/20 18:05 92 Nasal Cannula 4.00 04/20/20 15:53 37.5 87 18 135/68 (90) 98 Nasal Cannula 5.00 04/20/20 14:42 92 Nasal Cannula 4.00 04/20/20 12:10 37.0 87 20 134/68 (90) 96 Nasal Cannula 5.00 04/20/20 10:39 94 Nasal Cannula 5.00 I & O 04/21/20 07:00 Intake Total 1160 ml Output Total 935 ml Balance 225 ml Height & Weight Height: 5'9.00" Weight: 179lbs. 0.0oz. 81.101898ds; 23.83 BMI Method: General Appearance: No Apparent Distress, WD/WN, Chronically ill HEENT: PERRL/EOMI, Normal ENT Inspection, Pharynx Normal, Moist Mucous Membranes Neck: Full Range of Motion, Normal Inspection, Non Tender Respiratory: Chest Non Tender, Lungs Clear, Normal Breath Sounds, No Accessory Muscle Use, No Respiratory Distress, Crackles (RLL) Cardiovascular: Regular Rate, Rhythm, No Edema, No Gallop, No JVD, No Murmur, Normal Peripheral Pulses Capillary Refill: Less Than 3 Seconds Peripheral Pulses: 2+ Radial Pulses (R), 2+ Radial Pulses (L) Extremity: Normal Capillary Refill, Normal Inspection, Normal Range of Motion, Non Tender, No Calf Tenderness, No Pedal Edema Neurologic/Psychiatric: Alert, Oriented x3, No Motor/Sensory Deficits, Normal Mood/Affect Skin: Normal Color, Warm/Dry Lymphatic: No Adenopathy Results Lab Laboratory Tests 04/20/20 08:48 04/21/20 03:45 Assessment/Plan Assessment/Plan Bilateral pneumonia with sepsis and hypoxya -oxygen currently requiring 5 liters NC -Zosyn -antonio cultures pending -Check CTA of chest -Will add abd/pelvis r/o mass -Check Echocardiogram -Will start prednisone 40mg daily -Repeat PCT Dysphagia r/o aspiration - speech therapy -Continue dysphagia diet Metabolic lactic acidosis -Monitor Pancytopenia -Monitor Worsening thrombocytopenia -Hold lovenox -Check hit and DIC panel Severe CAD -Continue plavix for now (discussed with Dr. Watt who knows him well) NIA PARRISH DO Apr 21, 2020 08:55
[2020-04-21] MEDS: predniSONE 20 MG TAB PO SCH (09:13)
--- NOTE | 2020-04-21 09:50 | Physical Therapy Daily Note ---
PT Daily Note-Current Subjective Patient is very agreeable to participate with therapy. No c/o. Mental Status Patient Orientation: Normal For Age Attachments: Oxygen (5L), IV Transfers SCALE: Activities may be completed with or without assistive devices. 2-Hhdpbhhdxo-nykelpq completes the activity by him/herself with no assistance from a helper. 5-Set-up or Clean-up Assistance-helper sets up or cleans up; patient completes activity. [place] assists only prior to or following the activity. 4-Supervision or Touching Assistance-helper provides verbal cues and/or touching/steadying and/or contact guard assistance as patient completes a ctivity. Assistance may be provided throughout the activity or intermittently. 3-Partial/Moderate Assistance-helper does LESS THAN HALF the effort. [place] lifts, holds or supports trunk or limbs, but provides less than half the effort. 2-Substantial/Maximal Assistance-helper does MORE THAN HALF the effort. [place] lifts or holds trunk or limbs and provides more than half the effort. 3-Qxnuozeum-trgulk does ALL the effort. Patient does none of the effort to complete the activity. Or, the assistance of 2 or more helpers is required for the patient to complete the activity. If activity was not attempted, code reason: 7-Patient Refused. 9-Not Applicable-not attempted and the patient did not perform the activity before the current illness, exacerbation or injury. 10-Not Attempted due to Environmental Limitations-(lack of equipment, weather restraints, etc.). 88-Not Attempted due to Medical Conditions or Safety Concerns. Lying to Sitting/Side of Bed(Q: 5 Sit to Stand (QC): 4 Chair/Qfo-td-Leuvq Xfer(QC): 4 Toilet Transfer (QC): 4 CGA for safety Weight Bearing Full Weight Bearing Full Weight Bearing Gait Training Does the Patient Walk?: Yes Distance: 180' Walk 10 feet (QC): 4 Walk 50 ft with 2 Turns(QC): 4 Walk 150 ft (QC): 4 Gait Assistive Device: FWW extended UE's and trunk flexed posture with gait/functional gait sequence. Exercises Seated Therapy Exercises: Ankle pumps, Long arc quads Seated Reps: 15 Assessment Patient improving with gross motor skills. Continues to be limited with distance and independence with mobility. Patient incontinent urine requiring clothing change and cleansing by PT. PT Short Term Goals Short Term Goals Time Frame: Apr 26, 2020 Roll Left & Right: 6 Sit to lyin Lying to sitting on side of be: 6 Sit to stand: 6 Chair/bfp-mf-etypm transfer: 6 Toilet transfer: 6 Car transfer: 6 Walk 10 feet: 6 Walk 50 feet with two turns: 6 Walk 150 feet: 6 1 step (curb): 6 PT Dope Heater Goals Dope Heater Goals PT Dope Heater Goals Time Frame: May 03, 2020 Walk 10 feet (QC): 6 Walk 50ft with 2 Turns (QC): 6 Walk 150 ft (QC): 6 Walking 10ft on Uneven Surface: 6 1 Step (curb) (QC): 6 4 Steps (QC): 6 12 Steps (QC): 6 Picking up an Object (QC): 6 PT Plan Treatment/Plan Treatment Plan: Continue Plan of Care Treatment Plan: Bed Mobility, Functional Activity Shari, Functional Strength, Gait, Safety, Therapeutic Exercise, Transfers Treatment Duration: May 03, 2020 Frequency: 11 times per week Estimated Hrs Per Day: .5 hour per day Patient and/or Family Agrees t: Yes Time/GCodes Time In: 854 Time Out: 908 Total Billed Treatment Time: 13 Total Billed Treatment 1 visit FA 13 min ELVIE FERRARI PT Apr 21, 2020 09:49
--- NOTE | 2020-04-21 11:30 | NUR ---
PT C/O FOOT DISCOMFORT TO WEEKEND RN, WHICH PROMPTED NOTIFICATION TO COMMUNITY SERVICE OFFICER. RAPPORT ESTABLISHED WITH PATIENT, BILATERAL LOWER FEET EXAMINED. PT STATES HE WAS PREVIOUSLY A PATIENT OF DR. BASS'S, BEING RELEASED LAST SEPTEMBER FOR A RT FOOT DIABETIC ULCER. PATIENT NOW HAS A HARD, DRY, SCALY FISSURE WITH MINIMAL DARKENING BELOW RT GREAT TOE . AREA TENDER, NO DRAINAGE. PATIENT HAS A CALLOUSED, DARK PURPLE UNOPENED PRESSURE ULCER UNDER LEFT GREAT TOE. BETADINE APPLIED. PATIENT STATES WILLING TO SEE DR BASS FOR WOUNDCARE TO THESE AREAS POST DISCHARGE, LONG HAS HE HAS A RIDE TO/FROM THE OUTPATIENT CLINIC.
--- NOTE | 2020-04-21 11:43 | Occupational Therapy Eval ---
OT Evaluation-General/PLF Medical Diagnosis Admission Date Apr 17, 2020 at 12:12 Medical Diagnosis: Sepsis Onset Date: Apr 17, 2020 Therapy Diagnosis Therapy Diagnosis: weakness Height/Weight Height (Feet): 5 Height (Inches): 9.00 Weight (Pounds): 179 Weight (Ounces): 0.0 Precautions Precautions/Isolations: Fall Prevention, Standard Precautions Referral Physician: Alysa Referral Reason: Evaluation/Treatment Medical History Additional Medical History Amputations of toes, CAD, HTN, neuropathy, stroke, renal failure, arthritis, DM, skin cancer with surgical intervention Current History ED with fever and SOB. 2nd COVID test NEG, found to have R lower lung pneumonia. Social History Home: Single Level Current Living Status: Children Entry Into Home: Stairs With Railing Steps Into Home: 3 ADL-Prior Level of Function SCALE: Activities may be completed with or without assistive devices. 7-Qhxnfnsgof-qvybddl completes the activity by him/herself with no assistance from a helper. 5-Set-up or Clean-up Assistance-helper sets up or cleans up; patient completes activity. [place] assists only prior to or following the activity. 4-Supervision or Touching Assistance-helper provides verbal cues and/or touching/steadying and/or contact guard assistance as patient completes activity. Assistance may be provided throughout the activity or intermittently. 3-Partial/Moderate Assistance-helper does LESS THAN HALF the effort. [place] lifts, holds or supports trunk or limbs, but provides less than half the effort. 2-Substantial/Maximal Assistance-helper does MORE THAN HALF the effort. [place] lifts or holds trunk or limbs and provides more than half the effort. 1-Hkbhgyrsx-kkvmmi does ALL the effort. Patient does none of the effort to complete the activity. Or, the assistance of 2 or more helpers is required for the patient to complete the activity. If activity was not attempted, code reason: 7-Patient Refused. 9-Not Applicable-not attempted and the patient did not perform the activity before the current illness, exacerbation or injury. 10-Not Attempted due to Environmental Limitations-(lack of equipment, weather restraints, etc.). 88-Not Attempted due to Medical Conditions or Safety Concerns. ADL PLOF Comments Pt reports being independent with all ADLS at PLOF including bathing/dressing/toileting, he also helps his daughter with cooking and cleaning. Self Care: Independent Functional Cognition: Independent DME/Equipment: Bath Chair, Tub/Shower DME/Equipment Comments Walker OT Current Status Subjective Pt seated in recliner, agreeable to OT Tx. Mental Status/Objective Patient Orientation: Person, Place, Time, Situation Attachments: Oxygen Current Glasses/Contacts: No Hearing Aids: No Dentures/Partials: No Hand Dominance: Right Upper Extremity ROM WFL, BUE shoulder flexion to approx 150 degrees Upper Extremity Coordination WFL Upper Extremity Sensation WFL, pt denies tingling/numbness Upper Extremity Strength grossly 4/5 ADL-Treatment Eating (QC): 6 (Per pt report) On/Off Footwear (QC): 3 (Pt able to doff independently, min A donning R gripper sock.) Other Treatments Pt seated in recliner, OT Educated pt on purpose and benefit of OT, he verbalized understanding. Pt provided information about PLOF and home set up and participated in UE screen. Pt able to doff/don gripper socks with min A. In order to increase BUE strength and activity tolerance, pt completed BUE AROM x10 reps of the following: shoulder flexion, elbow flexion, and front punch. OT instructed pt to complete exercises throughout the day, increasing reps as tolerated, he verbalized understanding. Post tx, pt seated in recliner, call light in reach and all needs met. Education OT Patient Education: Correct positioning, Exercise program, Modified ADL techniques, Progress toward Goal/Update tx plan, Purpose of tx/functional activities, Rehab process Teaching Recipient: Patient Teaching Methods: Demonstration, Discussion Response to Teaching: Verbalize Understanding, Return Demonstration OT Chcf Goals Hydrographer Goals Time Frame: Apr 28, 2020 Eating (QC): 6 Oral Hygiene (QC): 6 Toileting Hygiene (QC): 6 Shower/Bathe Self (QC): 6 Upper Body Dressing (QC): 6 Lower Body Dressing (QC): 6 On/Off Footwear (QC): 6 Additional Goals: 1-Demonstrate ADL Tasks, 2-Verbalize Understanding, 3- ImproveStrength/Shari 1=Demonstrate adherence to instructed precautions during ADL tasks. 2=Patient will verbalize/demonstrate understanding of assistive devices/modifications for ADL. 3=Patient will improve strength/tolerance for activity to enable patient to perform ADL's. OT Education/Plan Problem List/Assessment Assessment: Decreased Activ Tolerance, Decreased UE Strength, Impaired I ADL's, Impaired Self-Care Skills Pt would benefit from short term skilled OT services in order to increase BUE strength and activity tolerance, and to increase independence with ADLS to maximize LOF for safe return home. Discharge Recommendations Plan/Recommendations: Continue POC Treatment Plan/Plan of Care Patient would benefit from OT for education, treatment and training to promote independence in ADL's, mobility, safety and/or upper extremity function for ADL's. Plan of Care: ADL Retraining, Functional Mobility, UE Funct Exercise/Act Treatment Duration: Apr 28, 2020 Frequency: 5 times per week Estimated Hrs Per Day: .25 hour per day Rehab Potential: Good Time/GCodes Start Time: 11:07 Stop Time: 11:21 Total Time Billed (hr/min): 14 Billed Treatment Time 1MANDY ADDISON OT Apr 21, 2020 11:43
--- NOTE | 2020-04-21 17:05 | NUR ---
WAFFLE CUSHION PLACED UNDER PT
--- NOTE | 2020-04-21 19:17 | Progress Note ---
Subjective Subjective/Events-last exam States he is feeling fairly well and hopeful to go home soon. Focused Exam Time of Focused Exam: 12:00 Objective Exam Last Set of Vital Signs Vital Signs Date Time Temp Pulse Resp B/P (MAP) Pulse Ox O2 Delivery O2 Flow Rate FiO2 04/21/20 18:19 94 Nasal Cannula 4.00 04/21/20 16:00 36.4 87 18 112/56 (74) 04/21/20 14:59 36 Capillary Refill : Less Than 3 SecondsLess Than 3 Seconds I&O Intake and Output 04/21/20 00:00 Intake Total 1310 ml Output Total 960 ml Balance 350 ml Intake Oral 1310 ml Output Urine Total 960 ml General: Alert, No Acute Distress Lungs: Clear to Auscultation, Normal Air Movement Heart: Regular Rate, No Murmurs Extremities: No Edema Skin: Other (dry wound on left foot at lateral first metatarsophalangeal joint, dry black wound on left plantar first MTP) Neuro: Normal Speech Psych/Mental Status: Mood NL Results/Procedures Lab Laboratory Tests 04/20/20 20:36: Glucometer 178H 04/21/20 03:45: White Blood Count 5.4, Red Blood Count 3.18L, Hemoglobin 9.0L, Hematocrit 27L, Mean Corpuscular Volume 85, Mean Corpuscular Hemoglobin 28, Mean Corpuscular Hemoglobin Concent 34, Red Cell Distribution Width 13.0, Platelet Count 21*L, Mean Platelet Volume 13.4H, Immature Granulocyte % (Auto) 1, Neutrophils (%) (Auto) 74, Lymphocytes (%) (Auto) 11L, Monocytes (%) (Auto) 11, Eosinophils (%) (Auto) 3, Basophils (%) (Auto) 0, Neutrophils # (Auto) 4.0, Lymphocytes # (Auto) 0.6L, Monocytes # (Auto) 0.6, Eosinophils # (Auto) 0.2, Basophils # (Auto) 0.0, Immature Granulocyte # (Auto) 0.1, Sodium Level 137, Potassium Level 3.7, Chloride Level 108H, Carbon Dioxide Level 20L, Anion Gap 9, Blood Urea Nitrogen 20H, Creatinine 1.35H, Estimat Glomerular Filtration Rate 51, BUN/Creatinine Ratio 15, Glucose Level 144H, Calcium Level 7.8L, Corrected Calcium 9.3, Total Bilirubin 0.5, Aspartate Amino Transf (AST/SGOT) 49H, Alanine Aminotransferase (ALT/SGPT) 24, Alkaline Phosphatase 71, Total Protein 6.1L, Albumin 2.1L, Procalcitonin 1.26H 04/21/20 10:55: Glucometer 239H 04/21/20 15:41: Glucometer 334H Microbiology 04/17/20 Urine Culture - Final, Complete NO GROWTH 04/17/20 Blood Culture - Preliminary, Resulted No growth 04/17/20 Influenza Types A,B Antigen (MERCED) - Final, Complete Assessment/Plan Assessment/Plan (1) Elevated d-dimer Status: Acute Assessment & Plan: CTA chest negative for PE. (2) Elevated AST (SGOT) Status: Acute Assessment & Plan: Mild, suspect fatty liver but CT did not note steatosis or other liver abnormality. (3) Anemia Status: Chronic Assessment & Plan: Hemoglobin over at least last year, will check iron studies and smear. (4) Thrombocytopenia Status: Acute Assessment & Plan: Significant and worsening, HIT lab pending. No signs of active bleeding. 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 Four T's HIT score is intermediate- but there are some unknowns- if he received heparin with his port flush on 04/08 this would significantly increase the likelihood of HIT, or if splenic infarct is new this would also increase the risk. For now, I am more suspicious of DIC and infection related thrombocytopenia. (5) Diabetic foot ulcer Status: Chronic Assessment & Plan: Seen by wound care nurse, no acute needs, will reestablish with Dr. Whitley on discharge for chronic wound care. Qualifiers: Qualified Codes: E11.621 - Type 2 diabetes mellitus with foot ulcer; L97.501 - Non-pressure chronic ulcer of other part of unspecified foot limited to breakdown of skin (6) Diabetes mellitus, type 2 Status: Chronic Assessment & Plan: Home metformin and glipizide held. Sliding scale insulin. Qualifiers: Qualified Codes: E11.65 - Type 2 diabetes mellitus with hyperglycemia (7) Hypertension Status: Chronic Qualifiers: Qualified Codes: I10 - Essential (primary) hypertension (8) Lipid disorder Status: Chronic (9) Renal insufficiency Status: Acute Assessment & Plan: Trended down, but now back up slightly, continue to monitor. (10) High serum fibrinogen Status: Acute Assessment & Plan: More consistent with chronic or compensated DIC but platelets are acutely low, may be elevated due to reactivity with infection. Continue to monitor clinically. 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 (12) Acute respiratory failure with hypoxemia Status: Acute Assessment & Plan: Currently requiring 4 lpm supplemental oxygen. Wean as tolerated. (13) Pneumonia Status: Acute Assessment & Plan: Zosyn. Qualifiers: Qualified Codes: J18.9 - Pneumonia, unspecified organism (14) DVT prophylaxis Status: Acute Assessment & Plan: No pharmacologic due to significant thrombocytopenia TANYA BERNAL MD Apr 21, 2020 19:17
[2020-04-21] MEDS: MELATONIN 3 MG TABLET PO PRN (20:21)
[2020-04-21] MEDS: inSUlin (REGULAR) HUMAN 1 UNIT/0.01 ML (CHARGE PER UNIT) SC PRN (20:21)
[2020-04-22] VITALS (8 sets, daily range): BP systolic 139–175; BP diastolic 62–89
[2020-04-22] MEDS: RT-ALBUTEROL/IPRATROPIUM 3 ML (DUONEB) VIAL INH SCH ×7 (02:00→23:37)
[2020-04-22] MEDS: inSUlin ASPART (NovoLOG) 1 UNIT/0.01 ML (CHARGE PER UNIT) SC SCH ×4 (05:55→20:28)
[2020-04-22] MEDS: PIPERACILLIN/TAZO 4.5 GM/NS 100 ML IV SCH ×2 (05:55)
[2020-04-22] MEDS: predniSONE 20 MG TAB PO SCH (05:55)
[2020-04-22] MEDS: inSUlin (REGULAR) HUMAN 1 UNIT/0.01 ML (CHARGE PER UNIT) SC PRN ×3 (05:56→17:11)
[2020-04-22 06:57] LABS: CREATININE SERUM 1.39 MG/DL (0.60-1.30); POTASSIUM 3.8 MMOL/L (3.6-5.0)
[2020-04-22 07:01] LABS: ABSOLUTE RETIC # 31 10e9/uL (24-90); BASOPHILS % (AUTO) 0 % (0-10); EOSINOPHILS % (AUTO) 0 % (0-10); HEMATOCRIT 29 % (40-54); HEMOGLOBIN 9.8 g/dL (13.3-17.7); LYMPHOCYTES # (AUTO) 0.4 10^3/uL (1.0-4.0); LYMPHOCYTES % (AUTO) 7 % (12-44); MEAN CORPUSCULAR HEMOGLOBIN 28 pg (25-34); MEAN CORPUSCULAR HGB CONC 33 g/dL (32-36); MEAN CORPUSCULAR VOLUME 84 fL (80-99); MEAN PLATELET VOLUME 12.7 fL (9.0-12.2); MONOCYTES # (AUTO) 0.4 10^3/uL (0.0-1.0); MONOCYTES % (AUTO) 7 % (0-12); NEUTROPHILS # (AUTO) 4.9 10^3/uL (1.8-7.8); NEUTROPHILS % (AUTO) 86 % (42-75); WHITE BLOOD COUNT 5.7 10^3/uL (4.3-11.0)
[2020-04-22 07:14] LABS: PLATELET COUNT 26 10^3/uL (130-400)
--- NOTE | 2020-04-22 07:37 | Pulmonary Progress Note ---
Subjective Time Seen by a Provider: 07:30 Sepsis Event Evaluation Height, Weight, BMI Height: 5'9.00" Weight: 179lbs. 0.0oz. 81.329999tm; 23.83 BMI Method: Focused Exam Time of Focused Exam: 12:00 Exam Exam Vital Signs Date Time Temp Pulse Resp B/P (MAP) Pulse Ox O2 Delivery O2 Flow Rate FiO2 04/22/20 06:24 95 Nasal Cannula 4.00 04/22/20 04:00 35.7 70 18 175/89 (117) 98 Nasal Cannula 4.00 04/22/20 02:00 93 Nasal Cannula 4.00 04/22/20 01:01 36.0 71 18 169/83 (111) 96 Nasal Cannula 4.00 04/22/20 00:00 36.0 71 18 169/83 (111) 96 Nasal Cannula 4.00 04/21/20 21:57 92 Nasal Cannula 4.00 04/21/20 20:30 Nasal Cannula 4.00 04/21/20 20:00 36.2 84 18 132/60 (84) 97 Nasal Cannula 4.00 04/21/20 18:19 94 Nasal Cannula 4.00 04/21/20 16:00 36.4 87 18 112/56 (74) 95 Nasal Cannula 4.00 04/21/20 15:20 96 Nasal Cannula 4.00 04/21/20 14:59 35.9 80 94 36 04/21/20 12:00 35.9 86 18 128/65 (86) 96 Nasal Cannula 5.00 04/21/20 10:35 94 Nasal Cannula 4.00 04/21/20 08:00 36.5 84 18 137/71 (93) 92 Nasal Cannula 5.00 04/21/20 08:00 Nasal Cannula 4.00 I & O 04/22/20 07:00 Intake Total 1570 ml Output Total 500 ml Balance 1070 ml Height & Weight Height: 5'9.00" Weight: 179lbs. 0.0oz. 81.819488py; 23.83 BMI Method: General Appearance: No Apparent Distress, WD/WN, Chronically ill HEENT: PERRL/EOMI, Normal ENT Inspection, Pharynx Normal, Moist Mucous Membranes Neck: Full Range of Motion, Normal Inspection, Non Tender Respiratory: Chest Non Tender, Lungs Clear, Normal Breath Sounds, No Accessory Muscle Use, No Respiratory Distress, Crackles (RLL) Cardiovascular: Regular Rate, Rhythm, No Edema, No Gallop, No JVD, No Murmur, Normal Peripheral Pulses Capillary Refill: Less Than 3 Seconds Peripheral Pulses: 2+ Radial Pulses (R), 2+ Radial Pulses (L) Extremity: Normal Capillary Refill, Normal Inspection, Normal Range of Motion, Non Tender, No Calf Tenderness, No Pedal Edema Neurologic/Psychiatric: Alert, Oriented x3, No Motor/Sensory Deficits, Normal Mood/Affect Skin: Normal Color, Warm/Dry Lymphatic: No Adenopathy Results Lab Laboratory Tests 04/20/20 08:48 04/21/20 03:45 04/22/20 06:05 Assessment/Plan Assessment/Plan Bilateral pneumonia with sepsis and hypoxya -oxygen currently requiring 4 liters NC -- Titrate oxygen down -Zosyn -- change to Augmentin PO x 5 days then D/C -prednisone 40mg daily -Repeat PCT Dysphagia r/o aspiration - speech therapy -Continue dysphagia diet Metabolic lactic acidosis -Monitor Pancytopenia -Monitor thrombocytopenia -HIT ab neg -Monitor Severe CAD -Continue plavix for now (discussed with Dr. Watt who knows him well) NIA PARRISH DO Apr 22, 2020 07:37
[2020-04-22 08:23] LABS: BAND NEUTROPHILS 4 %; BASOPHILS % (MANUAL) 0 %; EOSINOPHILS % (MANUAL) 0 %; LYMPHOCYTES % (MANUAL) 6 %; MONOCYTES % (MANUAL) 7 %; NEUTROPHILS % (MANUAL) 83 %
[2020-04-22 08:26] LABS: BURR CELLS SLIGHT
--- NOTE | 2020-04-22 09:05 | Diagnostic Imaging Report ---
INDICATION: Pneumonia. Frontal chest obtained at 08:36 a.m. is compared to 04/18/2020. FINDINGS: Extensive infiltrate throughout the right lung is again noted with unchanged appearance compared to the prior study. There is some milder patchy infiltrate in the left lateral base. There is no pneumothorax or gross pleural fluid. Port-A-Cath is stable. IMPRESSION: Unchanged extensive right-sided infiltrate with milder left basilar infiltrate. Dictated by: Dictated on workstation # [id number]
[2020-04-22] MEDS: ASPIRIN E.C. 81 MG (ECOTRIN) TAB PO SCH (09:12)
[2020-04-22] MEDS: PANTOPRAZOLE 40 MG (PROTONIX) VIAL IV SCH (09:12)
[2020-04-22] MEDS: CLOPIDOGREL 75 MG (PLAVIX) TABLET PO SCH (09:12)
[2020-04-22] MEDS: SERTRALINE 50 MG (ZOLOFT) TABLET PO SCH (09:12)
[2020-04-22] MEDS: ISOSORBIDE MONONITRATE 30 MG (IMDUR) TAB PO SCH (09:12)
[2020-04-22] MEDS: SENNA W/DOCUSATE (SENOKOT S) TABLET PO SCH ×2 (09:12→20:28)
[2020-04-22] MEDS: AUGMENTIN 875 MG TAB (AMOXICILLIN/CLAVULANATE) PO SCH ×2 (09:12→17:11)
[2020-04-22] MEDS: OMEGA 3 (FISH OIL) 1000 MG CAP PO SCH (09:12)
--- NOTE | 2020-04-22 09:13 | Occupational Ther Daily Note ---
OT Current Status-Daily Note Subjective Pt AxO. Pt agrees to tx, denies pain. Pt states has been OOB this am, though can continue to eat in recliner. Mental Status/Objective Patient Orientation: Person, Place, Situation, Normal For Age Attachments: IV, Oxygen ADL-Treatment Therapy Code Descriptions/Definitions Functional [place] Measure: 0=Not Assessed/NA 4=Minimal Assistance 1=Total Assistance 5=Supervision or Setup 2=Maximal Assistance 6=Modified [place] 3=Moderate Assistance 7=Complete IndependenceSCALE: Activities may be completed with or without assistive devices. 8-Elwxsihqch-zcpdxgi completes the activity by him/herself with no assistance from a helper. 5-Set-up or Clean-up Assistance-helper sets up or cleans up; patient completes activity. [place] assists only prior to or following the activity. 4-Supervision or Touching Assistance-helper provides verbal cues and/or touching/steadying and/or contact guard assistance as patient completes activity. Assistance may be provided throughout the activity or intermittently. 3-Partial/Moderate Assistance-helper does LESS THAN HALF the effort. [place] lifts, holds or supports trunk or limbs, but provides less than half the effort. 2-Substantial/Maximal Assistance-helper does MORE THAN HALF the effort. [place] lifts or holds trunk or limbs and provides more than half the effort. 9-Zckxrgjrd-rgkmeq does ALL the effort. Patient does none of the effort to complete the activity. Or, the assistance of 2 or more helpers is required for the patient to complete the activity. If activity was not attempted, code reason: 7-Patient Refused. 9-Not Applicable-not attempted and the patient did not perform the activity before the current illness, exacerbation or injury. 10-Not Attempted due to Environmental Limitations-(lack of equipment, weather restraints, etc.). 88-Not Attempted due to Medical Conditions or Safety Concerns. Eating (QC): 6 Toileting Hygiene (QC): 7 Toilet Transfer (QC): 7 Other Treatment Pt denies needs for toileting. Bed mob from sit to EOB with SBA. Sit to stand from EOB with cues for hand positioning, CGA. CGA ambulation to chair. Pt sits with control. Xray comes in (5 min deduction on time). Pt is educated on UE theraband ex, completing each with demonstration prior and then use of HEP for reference. Pt completes 5-10 reps bilaterally of the following ex with yellow theraband: shoulder flexion, horizontal abduction, tricep and biceps. Pt states he isn't able to hold band for long period of time due to arthritis. Modified band created for pt with use of adaptive handle wrapped with theraband. Pt expresses much easier. Pt given red supervisory examiner sponge for arthritis management. Instruction to complete 5- 10 reps bilaterally of the exercises 2-3 x daily. Pt agrees, all needs met, call light in reach, pt in recliner upon exit. Education OT Patient Education: Correct positioning, Exercise program, Home exercise program, Purpose of tx/functional activities, Transfer techniques Teaching Recipient: Patient Teaching Methods: Demonstration, Handout, Discussion Response to Teaching: Verbalize Understanding, Return Demonstration, Reinforcement Needed OT Glass Presser Goals Glass Presser Goals Time Frame: Apr 28, 2020 Eating (QC): 6 Oral Hygiene (QC): 6 Toileting Hygiene (QC): 6 Shower/Bathe Self (QC): 6 Upper Body Dressing (QC): 6 Lower Body Dressing (QC): 6 On/Off Footwear (QC): 6 Additional Goals: 1-Demonstrate ADL Tasks, 2-Verbalize Understanding, 3-ImproveStrength/Shari 1=Demonstrate adherence to instructed precautions during ADL tasks. 2=Patient will verbalize/demonstrate understanding of assistive devices/modifications for ADL. 3=Patient will improve strength/tolerance for activity to enable patient to perform ADL's. OT Education/Plan Problem List/Assessment Assessment: Decreased Activ Tolerance, Decreased UE Strength, Impaired I ADL's, Impaired Self-Care Skills Pt would benefit from short term skilled OT services in order to increase BUE strength and activity tolerance, and to increase independence with ADLS to maximize LOF for safe return home. Discharge Recommendations Plan/Recommendations: Continue POC Therapy Discharge Recommendati: Home & Family Treatment Plan/Plan of Care Treatment,Training & Education: Yes Patient would benefit from OT for education, treatment and training to promote independence in ADL's, mobility, safety and/or upper extremity function for ADL's. Plan of Care: ADL Retraining, Functional Mobility, UE Funct Exercise/Act Treatment Duration: Apr 28, 2020 Frequency: 5 times per week Estimated Hrs Per Day: .25 hour per day Rehab Potential: Good Time/GCodes Start Time: 08:34 Stop Time: 09:05 (- 5 min time.) Total Time Billed (hr/min): 26 Billed Treatment Time 1, EX 2 (70) [id number] (-5 min uncharged time for xray visit) DEVAN BERGER OTR Apr 22, 2020 09:13
--- NOTE | 2020-04-22 10:27 | Progress Note ---
Subjective Subjective/Events-last exam Afebrile, states he is feeling a little better each day. Hopes to go home whenever it is possible. Focused Exam Time of Focused Exam: 12:00 Objective Exam Last Set of Vital Signs Vital Signs Date Time Temp Pulse Resp B/P (MAP) Pulse Ox O2 Delivery O2 Flow Rate FiO2 04/22/20 08:00 35.7 78 22 156/83 (107) 94 Nasal Cannula 4.00 04/21/20 14:59 36 Capillary Refill : Less Than 3 SecondsLess Than 3 Seconds I&O Intake and Output 04/22/20 00:00 Intake Total 1670 ml Output Total 400 ml Balance 1270 ml Intake Oral 1430 ml IV Total 240 ml Output Urine Total 400 ml # Voids 2 General: Alert, No Acute Distress Lungs: Normal Air Movement Heart: Regular Rate, No Murmurs Neuro: Normal Speech Psych/Mental Status: Mood NL Results/Procedures Lab Laboratory Tests 04/21/20 10:55: Glucometer 239H 04/21/20 15:41: Glucometer 334H 04/21/20 19:49: Glucometer 325H 04/22/20 05:23: Glucometer 314H 04/22/20 06:05: White Blood Count 5.7, Red Blood Count 3.49L, Hemoglobin 9.8L, Hematocrit 29L, Mean Corpuscular Volume 84, Mean Corpuscular Hemoglobin 28, Mean Corpuscular Hemoglobin Concent 33, Red Cell Distribution Width 12.7, Platelet Count 26*L, Mean Platelet Volume 12.7H, Immature Granulocyte % (Auto) 1, Neutrophils (%) (Auto) 86H, Lymphocytes (%) (Auto) 7L, Monocytes (%) (Auto) 7, Eosinophils (%) (Auto) 0, Basophils (%) (Auto) 0, Neutrophils # (Auto) 4.9, Lymphocytes # (Auto) 0.4L, Monocytes # (Auto) 0.4, Eosinophils # (Auto) 0.0, Basophils # (Auto) 0.0, Immature Granulocyte # (Auto) 0.0, Neutrophils % (Manual) 83, Lymphocytes % (Manual) 6, Monocytes % (Manual) 7, Eosinophils % (Manual) 0, Basophils % (Manual) 0, Band Neutrophils 4, Percent Immature Platelet Fraction 16.1H, Tamela Cells SLIGHT, Absolute Reticulocyte Count 31, Percent Reticulocyte Count 0.90, Sodium Level 132L, Potassium Level 3.8, Chloride Level 103, Carbon Dioxide Level 19L, Anion Gap 10, Blood Urea Nitrogen 23H, Creatinine 1.39H, Estimat Glomerular Filtration Rate 50, BUN/Creatinine Ratio 17, Glucose Level 336H, Calcium Level 8 .0L Microbiology 04/17/20 Urine Culture - Final, Complete NO GROWTH 04/17/20 Blood Culture - Preliminary, Resulted No growth 04/17/20 Influenza Types A,B Antigen (MERCED) - Final, Complete Assessment/Plan Assessment/Plan (1) Elevated d-dimer Status: Acute Assessment & Plan: CTA chest negative for PE. (2) Elevated AST (SGOT) Status: Acute Assessment & Plan: Mild, suspect fatty liver but CT did not note steatosis or other liver abnormality. (3) Anemia Status: Chronic Assessment & Plan: Hemoglobin low over at least last year, will check iron studies and smear. (4) Thrombocytopenia Status: Acute Assessment & Plan: Significant and worsening, HIT lab pending. No signs of active bleeding. 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 Four T's HIT score is intermediate- but there are some unknowns- if he received heparin with his port flush on 04/08 this would significantly increase the likelihood of HIT, or if splenic infarct is new this would also increase the risk. For now, I am more suspicious of DIC and infection related thrombocytopenia. 2/2 slightly up today, HIT antibody neg. (5) Diabetic foot ulcer Status: Chronic Assessment & Plan: Seen by wound care nurse, no acute needs, will reestablish with Dr. Whitley on discharge for chronic wound care. Qualifiers: Qualified Codes: E11.621 - Type 2 diabetes mellitus with foot ulcer; L97.501 - Non-pressure chronic ulcer of other part of unspecified foot limited to breakdown of skin (6) Diabetes mellitus, type 2 Status: Chronic Assessment & Plan: Home metformin and glipizide held. Sliding scale insulin. 2/2 hyperglycemic, resume home metformin and glipizide. Qualifiers: Qualified Codes: E11.65 - Type 2 diabetes mellitus with hyperglycemia (7) Hypertension Status: Chronic Qualifiers: Qualified Codes: I10 - Essential (primary) hypertension (8) Lipid disorder Status: Chronic (9) Renal insufficiency Status: Acute Assessment & Plan: Trended down, but now back up slightly, continue to monitor. (10) High serum fibrinogen Status: Acute Assessment & Plan: More consistent with chronic or compensated DIC but platelets are acutely low, may be elevated due to reactivity with infection. Continue to monitor clinically. 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 (12) Acute respiratory failure with hypoxemia Status: Acute Assessment & Plan: Currently requiring 4 lpm supplemental oxygen. Wean as tolerated. 2/2 overall with nearing stable status, will have RT check for home O2 qualification (13) Pneumonia Status: Acute Assessment & Plan: Zosyn. 2/2 changed to Augmentin for [address] Pedersen Qualifiers: Qualified Codes: J18.9 - Pneumonia, unspecified organism (14) DVT prophylaxis Status: Acute Assessment & Plan: No pharmacologic due to significant thrombocytopenia TANYA BERNAL MD Apr 22, 2020 10:27
--- NOTE | 2020-04-22 11:37 | Physical Therapy Daily Note ---
PT Daily Note-Current Subjective Patient states, "I think I get to go home tomorrow." AGrees to PT. Mental Status Patient Orientation: Normal For Age Attachments: Oxygen Transfers SCALE: Activities may be completed with or without assistive devices. 4-Caokbphyai-nuveryr completes the activity by him/herself with no assistance from a helper. 5-Set-up or Clean-up Assistance-helper sets up or cleans up; patient completes activity. [place] assists only prior to or following the activity. 4-Supervision or Touching Assistance-helper provides verbal cues and/or touching/steadying and/or contact guard assistance as patient completes activit y. Assistance may be provided throughout the activity or intermittently. 3-Partial/Moderate Assistance-helper does LESS THAN HALF the effort. [place] lifts, holds or supports trunk or limbs, but provides less than half the effort. 2-Substantial/Maximal Assistance-helper does MORE THAN HALF the effort. [place] lifts or holds trunk or limbs and provides more than half the effort. 0-Hlkbtudlb-bvsuzf does ALL the effort. Patient does none of the effort to complete the activity. Or, the assistance of 2 or more helpers is required for the patient to complete the activity. If activity was not attempted, code reason: 7-Patient Refused. 9-Not Applicable-not attempted and the patient did not perform the activity before the current illness, exacerbation or injury. 10-Not Attempted due to Environmental Limitations-(lack of equipment, weather restraints, etc.). 88-Not Attempted due to Medical Conditions or Safety Concerns. Sit to Stand (QC): 4 Weight Bearing Full Weight Bearing Full Weight Bearing Gait Training Does the Patient Walk?: Yes Distance: 225' Walk 10 feet (QC): 4 Walk 50 ft with 2 Turns(QC): 4 Walk 150 ft (QC): 4 Gait Assistive Device: FWW slightly unsteady gait sequence/PT correct with mild LOB Exercises Seated Therapy Exercises: Ankle pumps, Long arc quads, Hip flexion Seated Reps: 15 Assessment Patient remains up in recliner with needs met. PT to increase activity as tolerated. From a PT standpoint, patient would benefit from home health therapy if dismissed to home to ensure safe return. Patient continues to have balance difficulty with ambulation. PT Short Term Goals Short Term Goals Time Frame: Apr 26, 2020 Roll Left & Right: 6 Sit to lyin Lying to sitting on side of be: 6 Sit to stand: 6 Chair/tcj-dj-leutj transfer: 6 Toilet transfer: 6 Car transfer: 6 Walk 10 feet: 6 Walk 50 feet with two turns: 6 Walk 150 feet: 6 1 step (curb): 6 PT Nursing Home Goals Nursing Home Goals PT Audit Control Clerk Goals Time Frame: May 03, 2020 Walk 10 feet (QC): 6 Walk 50ft with 2 Turns (QC): 6 Walk 150 ft (QC): 6 Walking 10ft on Uneven Surface: 6 1 Step (curb) (QC): 6 4 Steps (QC): 6 12 Steps (QC): 6 Picking up an Object (QC): 6 PT Plan Treatment/Plan Treatment Plan: Continue Plan of Care Treatment Plan: Bed Mobility, Functional Activity Shari, Functional Strength, Gait, Safety, Therapeutic Exercise, Transfers Treatment Duration: May 03, 2020 Frequency: 11 times per week Estimated Hrs Per Day: .5 hour per day Patient and/or Family Agrees t: Yes Time/GCodes Time In: 1112 Time Out: 1125 Total Billed Treatment Time: 13 Total Billed Treatment 1 visit FA 13 min ELVIE FERRARI PT Apr 22, 2020 11:37
--- NOTE | 2020-04-22 14:42 | NUR ---
CM/SS visited with the patient for discharge planning. Plan: At time of discharge, the patient will return home with home health and possible new home oxygen. A home oxygen study will be done prior to discharge. Home Health: The patient was provided with a patient preference form. He chose [facility]. CM/SS contacted [facility] and made a referral. DME: The patient chose [facility]. CM/SS faxed demographic to equipment company and awaiting home o2 study. The patient may benefit from a front wheeled walker. CM/SS will reach out to physician. CM/SS will continue to follow.
[2020-04-22] MEDS: metFORMIN 500 MG (GLUCOPHAGE) TAB PO SCH (20:28)
[2020-04-22] MEDS: MELATONIN 3 MG TABLET PO PRN (20:28)
[2020-04-23] MEDS: RT-ALBUTEROL/IPRATROPIUM 3 ML (DUONEB) VIAL INH SCH ×2 (02:53→07:47)
[2020-04-23 04:10] VITALS: BP 139/69
[2020-04-23] MEDS: predniSONE 20 MG TAB PO SCH (06:03)
[2020-04-23] MEDS: inSUlin ASPART (NovoLOG) 1 UNIT/0.01 ML (CHARGE PER UNIT) SC SCH ×2 (06:03→11:46)
[2020-04-23 06:26] LABS: WHITE BLOOD COUNT 7.6 10^3/uL (4.3-11.0)
[2020-04-23 06:36] LABS: CALCIUM 7.8 MG/DL (8.5-10.1)
--- NOTE | 2020-04-23 06:36 | Pulmonary Progress Note ---
Subjective Time Seen by a Provider: 06:31 Subjective/Events-last exam No complications noted. Sepsis Event Evaluation Height, Weight, BMI Height: 5'9.00" Weight: 179lbs. 0.0oz. 81.962278zr; 23.83 BMI Method: Focused Exam Time of Focused Exam: 12:00 Exam Exam Vital Signs Date Time Temp Pulse Resp B/P (MAP) Pulse Ox O2 Delivery O2 Flow Rate FiO2 04/23/20 04:10 36.0 88 20 139/69 (92) 93 Nasal Cannula 1.00 04/23/20 02:53 95 Nasal Cannula 1.00 04/22/20 23:31 36.1 78 19 148/70 (96) 97 Nasal Cannula 1.00 04/22/20 20:00 Nasal Cannula 1.00 04/22/20 20:00 35.9 84 19 149/72 (97) 94 Nasal Cannula 4.00 04/22/20 19:08 93 Nasal Cannula 1.00 04/22/20 16:00 35.9 85 20 139/62 (87) 94 Nasal Cannula 4.00 04/22/20 14:12 94 Nasal Cannula 1.00 04/22/20 12:00 36.0 84 20 144/67 (92) 94 Nasal Cannula 4.00 04/22/20 10:36 99 Nasal Cannula 3.00 04/22/20 08:00 35.7 78 22 156/83 (107) 94 Nasal Cannula 4.00 04/22/20 08:00 Nasal Cannula 4.00 I & O 04/23/20 07:00 Intake Total 2240 ml Output Total 2050 ml Balance 190 ml Height & Weight Height: 5'9.00" Weight: 179lbs. 0.0oz. 81.176686ct; 23.83 BMI Method: General Appearance: No Apparent Distress, WD/WN, Chronically ill HEENT: PERRL/EOMI, Normal ENT Inspection, Pharynx Normal, Moist Mucous Membranes Neck: Full Range of Motion, Normal Inspection, Non Tender Respiratory: Chest Non Tender, Lungs Clear, Normal Breath Sounds, No Accessory Muscle Use, No Respiratory Distress, Crackles (RLL) Cardiovascular: Regular Rate, Rhythm, No Edema, No Gallop, No JVD, No Murmur, Normal Peripheral Pulses Capillary Refill: Less Than 3 Seconds Peripheral Pulses: 2+ Radial Pulses (R), 2+ Radial Pulses (L) Extremity: Normal Capillary Refill, Normal Inspection, Normal Range of Motion, Non Tender, No Calf Tenderness, No Pedal Edema Neurologic/Psychiatric: Alert, Oriented x3, No Motor/Sensory Deficits, Normal Mood/Affect Skin: Normal Color, Warm/Dry Lymphatic: No Adenopathy Results Lab Laboratory Tests 04/22/20 06:05 04/23/20 06:10 Assessment/Plan Assessment/Plan Bilateral pneumonia with sepsis and hypoxya -oxygen currently requiring 1 liters NC -- Titrate oxygen down to d/c -Will do oxygen qualification testing -Zosyn -- Augmentin PO x 5 days then D/C -prednisone 40mg daily -- decrease to 20mg daily x 3days then d/c -Will need repeat CT of chest in 8 wks after discharge -Repeat PCT Dysphagia r/o aspiration - speech therapy -Continue dysphagia diet Metabolic lactic acidosis -Monitor Pancytopenia -Monitor thrombocytopenia -HIT ab neg -Monitor Severe CAD -Continue plavix for now (discussed with Dr. Watt who knows him well) NIA PARRISH DO Apr 23, 2020 06:36
[2020-04-23 06:40] LABS: CREATININE SERUM 1.31 MG/DL (0.60-1.30)
[2020-04-23] MEDS ORDERED: predniSONE 20 MG TAB PO SCH (07:00)
--- NOTE | 2020-04-23 07:43 | NUR ---
SPO2 DROPPED TO 87% ON ROOM AIR @ REST. REPLACED O2 @ 2 LPM SPO2 STAYED AT 91%. Addendum: 04/23/20 at 0749 by OSIEL WOLF RT Amended: Links added.
[2020-04-23 08:00] VITALS: BP 148/75
[2020-04-23] MEDS: metFORMIN 500 MG (GLUCOPHAGE) TAB PO SCH (08:41)
[2020-04-23] MEDS: CLOPIDOGREL 75 MG (PLAVIX) TABLET PO SCH (08:41)
[2020-04-23] MEDS: SENNA W/DOCUSATE (SENOKOT S) TABLET PO SCH (08:41)
[2020-04-23] MEDS: ASPIRIN E.C. 81 MG (ECOTRIN) TAB PO SCH (08:41)
[2020-04-23] MEDS: SERTRALINE 50 MG (ZOLOFT) TABLET PO SCH (08:41)
[2020-04-23] MEDS: ISOSORBIDE MONONITRATE 30 MG (IMDUR) TAB PO SCH (08:41)
[2020-04-23] MEDS: OMEGA 3 (FISH OIL) 1000 MG CAP PO SCH (08:41)
[2020-04-23] MEDS: AUGMENTIN 875 MG TAB (AMOXICILLIN/CLAVULANATE) PO SCH (08:50)
[2020-04-23] MEDS ORDERED: glipiZIDE 5 MG (GLUCOTROL) TAB PO SCH (09:00)
[2020-04-23] MEDS ORDERED: PANTOPRAZOLE 40 MG (PROTONIX) TAB PO SCH (09:00)
[2020-04-23] MEDS ORDERED: PRD20T PO (09:51)
[2020-04-23] MEDS ORDERED: AMOX1TAB12 PO (09:51)
--- NOTE | 2020-04-23 10:04 | Discharge Summary ---
Discharge Summary Instructions for Patient [facility] [employer], Assessment/Instructions Follow up with Dr. Reynoso on 04/28 at 2 pm. Physician to follow Patient: Dr. Reynoso Discharge Diet for Home: ADA Diet Hospital Course Date of Admission: Apr 17, 2020 at 12:12 Admission Diagnosis : Family Physician/Provider: Marty Reynoso MD Date of Discharge: 04/23/20 Discharge Diagnosis: Severe sepsis resolved Pneumonia Acute hypoxic respiratory failure Acute on chronic kidney insufficiency Thromboctyopenia Diabetes mellitus Debility Hospital Course: Pt admitted and treated with antibiotics, had slow recovery, still requiring supplemental oxygen at d/c and with improving functional status but still needing PT and OT, sent home with O2 and on home health, to complete Augmentin and prednisone course for pneumonia. Platelets trending up at d/c but will need followed, suspect they were low due to sepsis, HIT antibody negative, no active bleeding issues. Creatinine remained stable around 1.32, suspect CKD, will need outpatient follow up. Bilateral dry foot wounds, seen by wound care nurse, no acute needs, needs new referral to Dr. Whitley out patient. Labs and Pending Lab Test: Laboratory Tests 04/22/20 11:07: Glucometer 320H 04/22/20 16:51: Glucometer 301H 04/22/20 20:24: Glucometer 240H 04/23/20 04:36: Glucometer 250H 04/23/20 06:10: White Blood Count 7.6, Red Blood Count 3.23L, Hemoglobin 9.0L, Hematocrit 27L, Mean Corpuscular Volume 83, Mean Corpuscular Hemoglobin 28, Mean Corpuscular Hemoglobin Concent 34, Red Cell Distribution Width 12.6, Platelet Count 74L, Mean Platelet Volume 12.0, Sodium Level 135, Potassium Level 4.0, Chloride Level 104, Carbon Dioxide Level 22, Anion Gap 9, Blood Urea Nitrogen 25H, Creatinine 1.31H, Estimat Glomerular Filtration Rate 53, BUN/Creatinine Ratio 19, Glucose Level 280H, Calcium Level 7.8L 04/23/20 08:22: Stool Occult Blood Immunoassay NEGATIVE Microbiology 04/17/20 Urine Culture - Final, Complete NO GROWTH 04/17/20 Blood Culture - Final, Complete No growth 04/17/20 Influenza Types A,B Antigen (MERCED) - Final, Complete Home Meds Active Prednisone 20 Mg Tab 20 Mg PO DAILY@0700 Amox Tr-K Clv 875-125 mg Tab (Amoxicillin/Potassium Clav) 1 Each Tablet 875 Mg PO BID WITH MEALS Reported Sertraline HCl 50 Mg Tablet 50 Mg PO DAILY [place] 3 1,000 mg Softgel ([place]-3 Fatty Acids/Fish Oil) 1 Each Capsule 1 Each PO DAILY Aspirin EC (Aspirin) 81 Mg Tablet.dr 81 Mg PO DAILY Atorvastatin Calcium 80 Mg Tablet 80 Mg PO DAILY Clopidogrel (Clopidogrel Bisulfate) 75 Mg Tablet 75 Mg PO DAILY Isosorbide Mononitrate ER (Isosorbide Mononitrate) 30 Mg Tab.er.24h 30 Mg PO DAILY Metformin HCl 500 Mg Tablet 500 Mg PO BID Glipizide 10 Mg Tablet 10 Mg PO DAILY Patient Allergies: Coded Allergies: No Known Drug Allergies (Unverified , 01/22/10) Height (Feet): 5 Height (Inches): 9.00 Weight (Pounds): 179 Weight (Ounces): 0.0 Home Health Need/Face to Face Date of Face to Face: Apr 23, 2020 Clinical Findings: Generalized weakness and fatigue, Instability, Muscle weakness, Shortness of breath I have seen Pt [id number]: Yes Discharged To: Home Diagnosis/Conditions: See discharge diagnosis Patient is Homebound due to: Bipin fall risk due to instabilty, Muscle weakness, Shortness of breath/distress Homebound Status Due to the above stated illness, injury or surgical procedure (medical condition or diagnosis) and associated clinical findings, the patient is homebo und because of his/her inability to leave home except with aid of a supportive device and/or person AND leaving the home requires a considerable and taxing effort or is medically contraindicated. Pt req the following assistanc: Aid of another person, Walker Home Health Nursing Orders Home Health Services Order: Lumber Carrier Operator-Evaluate & Treat, Physical Therapy-Evaluate & Treat, Wound Care-Eval/Treat Certify Stmt I certify that this patient is under my care and that I, a nurse practitioner or a physician; a salon assistant working with me, had a face to face encounter that - meets the physician face to face encounter requirements with this patient as dated. Discharge Physical Exam General: Alert, No Acute Distress Lungs: Clear to Auscultation, Normal Air Movement Heart: Regular Rate, No Murmurs Neuro: Normal Speech Psych/Mental Status: Mood TANYA LUCAS MD Apr 23, 2020 10:04
--- NOTE | 2020-04-23 10:34 | Occupational Ther Daily Note ---
OT Current Status-Daily Note Subjective Co-treat with PT this session. Pt in bed upon entry. Pt soiled from BM into upper legs/ demi area. Pt alert, oriented to person only. Pt is introduced to OT/ PT and given purpose of tx and instruction through treatment. Mental Status/Objective Patient Orientation: Person Attachments: Wolf Catheter, IV, Oxygen, Telemetry ADL-Treatment Therapy Code Descriptions/Definitions Functional [place] Measure: 0=Not Assessed/NA 4=Minimal Assistance 1=Total Assistance 5=Supervision or Setup 2=Maximal Assistance 6=Modified [place] 3=Moderate Assistance 7=Complete IndependenceSCALE: Activities may be completed with or without assistive devices. 5-Ayirrxepeh-gkibbyf completes the activity by him/herself with no assistance from a helper. 5-Set-up or Clean-up Assistance-helper sets up or cleans up; patient completes activity. [place] assists only prior to or following the activity. 4-Supervision or Touching Assistance-helper provides verbal cues and/or touching/steadying and/or contact guard assistance as patient completes ac tivity. Assistance may be provided throughout the activity or intermittently. 3-Partial/Moderate Assistance-helper does LESS THAN HALF the effort. [place] lifts, holds or supports trunk or limbs, but provides less than half the effort. 2-Substantial/Maximal Assistance-helper does MORE THAN HALF the effort. [place] lifts or holds trunk or limbs and provides more than half the effort. 9-Tdazxafnm-woefcf does ALL the effort. Patient does none of the effort to complete the activity. Or, the assistance of 2 or more helpers is required for the patient to complete the activity. If activity was not attempted, code reason: 7-Patient Refused. 9-Not Applicable-not attempted and the patient did not perform the activity before the current illness, exacerbation or injury. 10-Not Attempted due to Environmental Limitations-(lack of equipment, weather restraints, etc.). 88-Not Attempted due to Medical Conditions or Safety Concerns. Shower/Bathe Self (QC): 1 (TD due to need of Ax2 in bed during rolling/ problem solving) Upper Body Dressing (QC): 2 (max A due to agitation/ confusion on purpose of ta sk. Pt is educated that gown will be placed on, continues to need cues throughout donning/ doffing.) Toileting Hygiene (QC): 1 (BM in between legs/ in demi area in bed. Pt rquires Ax2 to roll/ complete toilet care in bed. Pt requires cues for hand placement. Max A rolling side to side. Pt requires cues for purpose through this process as she asks, "What am I doing now?") Other Treatment Pt in bed. Soiled. OT/ PT address hygiene / rolling in bed as outlined. Once c leaned, pt bed mob (supine to sit EOB) with maxAx2. Pt increased agitation at this time, stating she does not want to get out of bed. Pt coughing intermittently, wet cough. Pt is educated on benefits of getting out of bed, pt agrees to sit in recliner. Sit to stand with assistx2 and guidance toward chair. After ~3 steps pt yells, "I'm going to fall!" Chair is placed behind pt. Pt sits with fair control. Pt is supported, leans back in chair and then begins to yell/ breathing increases. Nursing comes in, states pt hyperventilated. Pt requires cues for calming. Pt expresses, "I don't like when I don't know what I'm doing." Pt is brought to back of chair with max Ax2, pt positioned for comfort, nursing takes vitals with 02 ~high 80%. Pts 02 is bumped up 2L, all needs met, call light in reach, pt in chair with nursing present. Education OT Patient Education: Correct positioning, Modified ADL techniques, Purpose of tx/functional activities, Safety issues, Transfer techniques Teaching Recipient: Patient Teaching Methods: Demonstration, Discussion Response to Teaching: Unable to Return Demonstration, Unable to Comprehend, Reinforcement Needed OT [employer] Goals Alf Goals Time Frame: Apr 28, 2020 Eating (QC): 6 Oral Hygiene (QC): 6 Toileting Hygiene (QC): 6 Shower/Bathe Self (QC): 6 Upper Body Dressing (QC): 6 Lower Body Dressing (QC): 6 On/Off Footwear (QC): 6 Additional Goals: 1-Demonstrate ADL Tasks, 2-Verbalize Understanding, 3-ImproveStrength/Shari 1=Demonstrate adherence to instructed precautions during ADL tasks. 2=Patient will verbalize/demonstrate understanding of assistive devices/modifications for ADL. 3=Patient will improve strength/tolerance for activity to enable patient to perform ADL's. OT Education/Plan Problem List/Assessment Assessment: Decreased Activ Tolerance, Decreased Safety Aware, Decreased UE Strength, Dependent Transfers, Edema, Impaired Bed Mobility, Impaired Cognition, Impaired Funct Balance, Impaired I ADL's, Impaired Self-Care Skills Pt would benefit from short term skilled OT services in order to increase BUE strength and activity tolerance, and to increase independence with ADLS to maximize LOF for safe return home. Discharge Recommendations Plan/Recommendations: Continue POC Therapy Discharge Recommendati: 24 Hour Supervision, Post Acute OT Treatment Plan/Plan of Care Treatment,Training & Education: Yes Patient would benefit from OT for education, treatment and training to promote independence in ADL's, mobility, safety and/or upper extremity function for ADL's. Plan of Care: ADL Retraining, Functional Mobility, UE Funct Exercise/Act Treatment Duration: Apr 28, 2020 Frequency: 5 times per week Estimated Hrs Per Day: .25 hour per day Rehab Potential: Good Time/GCodes Start Time: 09:51 Stop Time: 10:17 Total Time Billed (hr/min): 26 Billed Treatment Time 1, ADL 2 (26) DEVAN BERGER OTR Apr 23, 2020 10:34
--- NOTE | 2020-04-23 10:41 | Occupational Ther Daily Note ---
OT Current Status-Daily Note Subjective Pt AxO, seen upright in recliner. Pt agrees to tx. Denies pain. Mental Status/Objective Patient Orientation: Person, Place, Situation, Normal For Age Attachments: Oxygen ADL-Treatment Therapy Code Descriptions/Definitions Functional [place] Measure: 0=Not Assessed/NA 4=Minimal Assistance 1=Total Assistance 5=Supervision or Setup 2=Maximal Assistance 6=Modified [place] 3=Moderate Assistance 7=Complete IndependenceSCALE: Activities may be completed with or without assistive devices. 3-Ikcabhtsta-mtmnknz completes the activity by him/herself with no assistance from a helper. 5-Set-up or Clean-up Assistance-helper sets up or cleans up; patient completes activity. [place] assists only prior to or following the activity. 4-Supervision or Touching Assistance-helper provides verbal cues and/or touching/steadying and/or contact guard assistance as patient completes activity. Assistance may be provided throughout the activity or intermittently. 3-Partial/Moderate Assistance-helper does LESS THAN HALF the effort. [place] lifts, holds or supports trunk or limbs, but provides less than half the effort. 2-Substantial/Maximal Assistance-helper does MORE THAN HALF the effort. [place] lifts or holds trunk or limbs and provides more than half the effort. 0-Hjytklijh-jbkqvv does ALL the effort. Patient does none of the effort to complete the activity. Or, the assistance of 2 or more helpers is required for the patient to complete the activity. If activity was not attempted, code reason: 7-Patient Refused. 9-Not Applicable-not attempted and the patient did not perform the activity before the current illness, exacerbation or injury. 10-Not Attempted due to Environmental Limitations-(lack of equipment, weather restraints, etc.). 88-Not Attempted due to Medical Conditions or Safety Concerns. Eating (QC): 6 Oral Hygiene (QC): 88 Bathing Location: L Arm, R Arm, L Upper Leg, R Upper Leg, L Lower Leg (including foot), R Lower Leg (including foot), Chest, Abdomen, Buttocks, Perineal Area Shower/Bathe Self (QC): 4 (SUP all tasks ) Upper Body Dressing (QC): 5 (s/u (denies donning his own clothes at this time. ) On/Off Footwear: 6 (IND) Toileting Hygiene (QC): 4 (SUP sit/ standing ) Other Treatment Pt completes sponge bath in recliner. Pt require SUP during these tasks. Pt denies SOB/ pain during any tasks. Good balance in stance. Pt left in recliner with blankets on, all needs met, call light in reach. Education OT Patient Education: Correct positioning, Modified ADL techniques, Purpose of tx/functional activities, Transfer techniques Teaching Recipient: Patient Teaching Methods: Demonstration, Discussion Response to Teaching: Verbalize Understanding, Return Demonstration OT Group Home Goals Belt Maker Goals Time Frame: Apr 28, 2020 Eating (QC): 6 Oral Hygiene (QC): 6 Toileting Hygiene (QC): 6 Shower/Bathe Self (QC): 6 Upper Body Dressing (QC): 6 Lower Body Dressing (QC): 6 On/Off Footwear (QC): 6 Additional Goals: 1-Demonstrate ADL Tasks, 2-Verbalize Understanding, 3- ImproveStrength/Shari 1=Demonstrate adherence to instructed precautions during ADL tasks. 2=Patient will verbalize/demonstrate understanding of assistive devices/modifications for ADL. 3=Patient will improve strength/tolerance for activity to enable patient to perform ADL's. OT Education/Plan Problem List/Assessment Assessment: Decreased Activ Tolerance, Decreased UE Strength, Impaired I ADL's, Impaired Self-Care Skills Pt would benefit from short term skilled OT services in order to increase BUE strength and activity tolerance, and to increase independence with ADLS to maximize LOF for safe return home. Discharge Recommendations Plan/Recommendations: Continue POC Therapy Discharge Recommendati: Home & Family Treatment Plan/Plan of Care Treatment,Training & Education: Yes Patient would benefit from OT for education, treatment and training to promote independence in ADL's, mobility, safety and/or upper extremity function for ADL's. Plan of Care: ADL Retraining, Functional Mobility, UE Funct Exercise/Act Treatment Duration: Apr 28, 2020 Frequency: 5 times per week Estimated Hrs Per Day: .25 hour per day Rehab Potential: Good Time/GCodes Start Time: 09:32 Stop Time: 09:51 Total Time Billed (hr/min): 19 Billed Treatment Time 1, ADL (19) DEVAN BERGER OTR Apr 23, 2020 10:41
--- NOTE | 2020-04-23 12:37 | NUR ---
CM/SS finalized discharge. Plan: The patient is discharging home today with home health and a new oxygen need. DME: CM/SS faxed the script and home o2 study to [facility]. They will deliver portable tank. Home Health: CM/SS contacted Avani at [facility] to inform her that patient was discharging today and discharge orders were available. The patient's daughter called the patient while this sw was in room. She is aware that the patient is discharging today. She will provide transportation home. No further need.
[2020-04-23 12:42] VITALS: BP 148/75
== END 2020-04-23 12:44 | disposition home health service (06) | DRG 871 ==
LOC: EDUNIT# 10:17 → ER 10:18 → 4TH 12:12
PROVIDERS: ADMIT Internal Medicine; ATTEND Family Medicine
DX: A41.9 Sepsis, unspecified organism (principal); J18.9 Pneumonia, unspecified organism; J96.01 Acute respiratory failure with hypoxia; E87.2 Acidosis; R13.10 Dysphagia, unspecified; E11.621 Type 2 diabetes mellitus with foot ulcer; L97.529 Non-pressure chronic ulcer of other part of left foot with unspecified severity; D69.6 Thrombocytopenia, unspecified; Z20.822 Contact with and (suspected) exposure to COVID-19; Z91.19 Patient's noncompliance with other medical treatment and regimen; N28.9 Disorder of kidney and ureter, unspecified; I73.9 Peripheral vascular disease, unspecified; I25.10 Atherosclerotic heart disease of native coronary artery without angina pectoris; E78.00 Pure hypercholesterolemia, unspecified; E78.5 Hyperlipidemia, unspecified; I10 Essential (primary) hypertension; G62.9 Polyneuropathy, unspecified; M19.91 Primary osteoarthritis, unspecified site; Z79.84 Long term (current) use of oral hypoglycemic drugs; Z79.82 Long term (current) use of aspirin; Z82.61 Family history of arthritis; Z83.3 Family history of diabetes mellitus; Z82.49 Family history of ischemic heart disease and other diseases of the circulatory system
CPT/HCPCS: 36415; 71045; 71275; 74177; 80048; 80053; 81000; 82274; 82728; 82805; 82962; 83036; 83540; 83605; 83735; 83880; 84100; 84145; 85007; 85025; 85027; 85045; 85055; 85379; 85384; 85610; 85730; 86022; 87040; 87088; 87449; 87635; 87804; 87899; 93306; 94640; 94664; 94760; 94761; 96361; 96365; 96372

== ENCOUNTER → 2021-06-30 | Outpatient (CLI) | payer MEDICARE, MEDICAID ==
[~2021-06-30] MED LIST changes: +AMOX1TAB12 PO; +GADOTERATE 0.5 MMOL/ML (CLARISCAN) 20 ML VIAL IV ONE; +GLIP10TA13 PO; -ISOS30TA3 PO; +ISOS30TA82 PO; -LISI10TA2 PO; +LISI10TA25 PO; +OMEG1CAP58 PO; +PRD20T PO; +SERT-413 PO; -SERT50TA9 PO
--- NOTE | 2021-06-30 13:55 | Diagnostic Imaging Report ---
PROCEDURE: MR imaging right lower extremity with and without contrast. TECHNIQUE: Multiplanar, multisequence pre- and dgag-yvhxhnxu-wvfcgqpl MR imaging of the right lower extremity was accomplished. INDICATION: Ulcer on the plantar aspect of his forefoot. COMPARISON: Right foot radiographs from 05/14/2019. FINDINGS: There is a small plantar ulcer at the level of the first metatarsal head. There is no appreciable sinus tract associated with the ulcer, although there is very minimal soft tissue between the ulcer and the plantar surface of the first metatarsal head. Chronic deformity of the first metatarsal head and MTP joint is again noted. There is some subtle patchy intramedullary edema in the deformed first metatarsal head and distal aspect of the shaft. The proximal one half of the first metatarsal shaft has a normal marrow signal. The remainder of the osseous structures of the forefoot have normal marrow signal. No rim-enhancing fluid collection. IMPRESSION: 1. Plantar ulcer at the level of the first MTP joint. There is chronic deformity at the first MTP, which may be due to prior surgery or injury. There is some patchy edema-like signal within the distal first metatarsal that could represent osteomyelitis or hyperemia from adjacent soft tissue infection. Dictated by: Dictated on workstation # [id number]
== END ==
LOC: RAD 09:30
PROVIDERS: ATTEND Podiatrist Foot & Ankle Surgery
DX: L97.519 Non-pressure chronic ulcer of other part of right foot with unspecified severity (principal)
CPT/HCPCS: 73720

== ENCOUNTER 2021-08-01 11:54 | Emergency (ER) | payer MEDICARE, MEDICAID ==
[~2021-08-01] VITALS: Ht 175.3 cm; Wt 85.3 kg
[~2021-08-01 11:54] MED LIST changes: -GADOTERATE 0.5 MMOL/ML (CLARISCAN) 20 ML VIAL IV ONE
[2021-08-01] MEDS ORDERED: MECLIZINE 25 MG (ANTIVERT) TAB PO ONE (12:15)
--- NOTE | 2021-08-01 12:25 | ED General ---
General Stated Complaint: DIZZINESS Source of Information: Patient Exam Limitations: No Limitations History of Present Illness Date Seen by Provider: August 01, 2021 Time Seen by Provider: 12:18 Initial Comments Patient is a 76-year-old male who presents to the ED with dizziness and lightheadedness. Symptoms started this morning when he woke up . States he felt lightheaded and slightly dizzy. Reports some mild room spinning with head movement. He states when he was walking he was leaning to the side. He reports similar symptoms in the past but resolved after 1 day. He states he woke up went back to sleep and woke up feeling much better. He states he saw Dr. Talley yesterday for cardiac evaluation. Patient states he is scheduled to get an outpatient stress test. Patient states he is short of breath all the time. No specific chest pain, abdominal pain, vomiting, diarrhea, fever, cough. History of diabetes and currently on metformin and glipizide. He is currently on Plavix. Patient denies severe head pain, neck pain, unilateral muscle weakness visual changes. Denies ear ringing, hearing loss Allergies and Home Medications Allergies Coded Allergies: No Known Drug Allergies (Unverified , 01/22/10) Patient Home Medication List Home Medication List Reviewed: Yes Amoxicillin/Potassium Clav (Amox Tr-K Clv 875-125 mg Tab) 1 Each Tablet, 875 MG PO BID WITH MEALS Prescribed by: TANYA BERNAL on 04/23/20 0951 Aspirin (Aspirin EC) 81 Mg Tablet.dr, 81 MG PO DAILY, (Reported) Entered as Reported by: MARYCRUZ MAST on 04/17/20 1549 Atorvastatin Calcium (Atorvastatin Calcium) 80 Mg Tablet, 80 MG PO DAILY, (Reported) Entered as Reported by: MARYCRUZ MAST on 04/17/20 1549 Clopidogrel Bisulfate (Clopidogrel) 75 Mg Tablet, 75 MG PO DAILY, (Reported) Entered as Reported by: MARYCRUZ MAST on 04/17/20 1549 Glipizide (Glipizide) 10 Mg Tablet, 10 MG PO DAILY, (Reported) Entered as Reported by: MARYCRUZ MAST on 04/17/20 1549 Isosorbide Mononitrate (Isosorbide Mononitrate ER) 30 Mg Tab.er.24h, 30 MG PO DAILY, (Reported) Entered as Reported by: MARYCRUZ MAST on 04/17/20 1549 Lisinopril (Lisinopril) 10 Mg Tablet, 10 MG PO DAILY Prescribed by: DAKSHA LAKE on 08/01/21 1501 Metformin HCl (Metformin HCl) 500 Mg Tablet, 500 MG PO BID, (Reported) Entered as Reported by: MARYCRUZ MAST on 04/17/20 1549 [place]-3 Fatty Acids/Fish Oil ([place] 3 1,000 mg Softgel) 1 Each Capsule, 1 EACH PO DAILY, (Reported) Entered as Reported by: MARYCRUZ MAST on 04/17/20 1549 Prednisone (Prednisone) 20 Mg Tab, 20 MG PO DAILY@0700 Prescribed by: TANYA BERNAL on 04/23/20 0951 Sertraline HCl (Sertraline HCl) 50 Mg Tablet, 50 MG PO DAILY, (Reported) Entered as Reported by: MARYCRUZ MAST on 04/17/20 1549 Review of Systems Review of Systems Constitutional: No chills, No diaphoresis, No malaise, No weakness EENTM: No blurred vision, No double vision, No vision loss, No mouth pain, No mouth swelling, No throat pain, No throat swelling Respiratory: No cough, No hemoptysis; short of breath; No wheezing Cardiovascular: No chest pain, No edema Gastrointestinal: No abdominal pain, No dysphagia, No nausea, No vomiting Genitourinary: No decreased output, No discharge Musculoskeletal: back pain, joint pain, joint swelling Skin: change in color, change in hair/nails All Other Systems Reviewed Negative Unless Noted: Yes Past Ezufbmv-Japdok-Ebujmb Hx Past Medical History Surgeries: Yes Appendectomy, Ear Surgery, Orthopedic Respiratory: Yes (CHRONIC BRONCHITIS) Cardiac: Yes Coronary Artery Disease, High Cholesterol, Hypertension Neurological: Yes Neuropathy, Stroke Genitourinary: No Renal Failure Gastrointestinal: Yes (CONSTIPATION) Musculoskeletal: Yes (CURRENTLY OSTEOMYLITIS) Arthritis Endocrine: Yes Diabetes, Non-Insulin dep Cancer: Yes Skin Did You Recieve Any Treatments: No What Type of Treatment Did You: Surgical Intervention Blood Disorders: No Family Medical History Alzheimer's disease 19 MOTHER G8 BROTHER Arthritis 19 FATHER 19 MOTHER G8 BROTHER G8 BROTHER G8 SISTER G8 SISTER G8 SISTER Cardiovascular disease G8 SISTER Cataracts G8 SISTER Completed stroke G8 SISTER Dementia 19 MOTHER Diabetes mellitus 19 MOTHER G8 SISTER DAUGHTER Hypercholesterolemia 19 MOTHER Hypertension 19 MOTHER Myocardial infarction 19 FATHER Respiratory disorder G8 SISTER No Pertinent Family Hx Physical Exam Vital Signs Vital Signs - First Documented 08/01/21 12:06 Pulse 66 Resp 10 B/P (MAP) 193/96 (128) Pulse Ox 99 O2 Delivery Room Air Capillary Refill : Height, Weight, BMI Height: 5'9.00" Weight: 179lbs. 0.0oz. 81.685129do; 23.83 BMI Method: General Appearance: No Apparent Distress, WD/WN Eyes: Bilateral Eye Normal Inspection, Bilateral Eye PERRL, Bilateral Eye EOMI HEENT: PERRL/EOMI, TMs Normal, Normal ENT Inspection, Pharynx Normal Neck: Full Range of Motion, Normal Inspection, Non Tender, Supple Respiratory: Chest Non Tender, Lungs Clear, Normal Breath Sounds, No Accessory Muscle Use, No Respiratory Distress Cardiovascular: Regular Rate, Rhythm, No Edema, No Gallop, No JVD Gastrointestinal: Normal Bowel Sounds, No Organomegaly, No Pulsatile Mass, Non Tender Back: Normal Inspection, No CVA Tenderness Extremity: Normal Capillary Refill, Normal Inspection, Normal Range of Motion, Non Tender Neurologic/Psychiatric: Alert, Oriented x3, No Motor/Sensory Deficits, Normal Mood/Affect, batteryman II-XII Norm as Tested Skin: Normal Color, Warm/Dry Progress/Results/Core Measures Suspected Sepsis SIRS Temperature: Pulse: Respiratory Rate: Laboratory Tests 08/01/21 12:14: White Blood Count 7.3 Blood Pressure / Mean: Laboratory Tests 08/01/21 12:14: Creatinine 1.44H, Platelet Count 207, Total Bilirubin 0.4 Results/Orders Lab Results Laboratory Tests Test 08/01/21 12:14 Range/Units White Blood Count 7.3 4.3-11.0 10^3/uL Red Blood Count 3.94 L 4.30-5.52 10^6/uL Hemoglobin 11.4 L 13.3-17.7 g/dL Hematocrit 34 L 40-54 % Mean Corpuscular Volume 86 80-99 fL Mean Corpuscular Hemoglobin 29 25-34 pg Mean Corpuscular Hemoglobin Concent 34 32-36 g/dL Red Cell Distribution Width 13.1 10.0-14.5 % Platelet Count 207 130-400 10^3/uL Mean Platelet Volume 9.5 9.0-12.2 fL Immature Granulocyte % (Auto) 0 % Neutrophils (%) (Auto) 72 42-75 % Lymphocytes (%) (Auto) 15 12-44 % Monocytes (%) (Auto) 9 0-12 % Eosinophils (%) (Auto) 3 0-10 % Basophils (%) (Auto) 1 0-10 % Neutrophils # (Auto) 5.3 1.8-7.8 10^3/uL Lymphocytes # (Auto) 1.1 1.0-4.0 10^3/uL Monocytes # (Auto) 0.6 0.0-1.0 10^3/uL Eosinophils # (Auto) 0.2 0.0-0.3 10^3/uL Basophils # (Auto) 0.0 0.0-0.1 10^3/uL Immature Granulocyte # (Auto) 0.0 0.0-0.1 10^3/uL Sodium Level 140 135-145 MMOL/L Potassium Level 4.4 3.6-5.0 MMOL/L Chloride Level 104 98-107 MMOL/L Carbon Dioxide Level 25 21-32 MMOL/L Anion Gap 11 5-14 MMOL/L Blood Urea Nitrogen 32 H 7-18 MG/DL Creatinine 1.44 H 0.60-1.30 MG/DL Estimat Glomerular Filtration Rate 50 BUN/Creatinine Ratio 22 Glucose Level 206 H 70-105 MG/DL Calcium Level 9.2 8.5-10.1 MG/DL Corrected Calcium 9.4 8.5-10.1 MG/DL Magnesium Level 1.6 1.6-2.4 MG/DL Total Bilirubin 0.4 0.1-1.0 MG/DL Aspartate Amino Transf (AST/SGOT) 19 5-34 U/L Alanine Aminotransferase (ALT/SGPT) 20 0-55 U/L Alkaline Phosphatase 82 40-136 U/L Troponin I < 0.028 <0.028 NG/ML Total Protein 7.1 6.4-8.2 GM/DL Albumin 3.8 3.2-4.5 GM/DL My Orders Orders - SHEA SHERMAN Cbc With Automated Diff (08/01/21 12:15) Comprehensive Metabolic Panel (08/01/21 12:15) Ekg Tracing (08/01/21 12:15) Troponin I [place] (08/01/21 12:15) Chest 1 View, Ap/Pa Only (08/01/21 12:15) Magnesium (08/01/21 12:15) Ct Head Wo (08/01/21 12:15) Meclizine Tablet (Antivert Tablet) (08/01/21 12:15) Orthostatic Vital Signs (Adult (08/01/21 12:19) Hydralazine Injection (Apresoline Inject (08/01/21 14:15) Medications Given in ED Vital Signs/I&O 08/01/21 08/01/21 08/01/21 12:06 13:00 15:10 Pulse 66 62 66 66 66 Resp 10 17 B/P (MAP) 193/96 (128) 174/86 (115) 165/89 167/87 (113) 158/85 (109) Pulse Ox 99 98 O2 Delivery Room Air Room Air Capillary Refill : ECG Comment Sinus rhythm, left axis deviation, left ventricular hypertrophy 64 bpm, QRS duration 130 MS, QTc 418 MS Departure Communication (PCP) Patient presents ED with dizziness and lightheadedness. States he woke up this morning feeling dizzy with unsteady gait. Patient feels better when he lays down. No appreciation of nystagmus. He has no unilateral muscle weakness, facial droop, slurred speech, confusion. NIH is 0. CT scan of the head negative for acute hemorrhaging, mass. Age indeterminant bilateral lacunar infarcts. He states he has had similar symptoms this past year. He states symptoms resolved that day after taking a nap. He states he saw his still operator batch or continuous yesterday and is scheduled for a stress test outpatient. Denies of any specific chest pain but states he is always "short of breath". EKG was obtained which did not show any evidence of ST elevation depression or arrhythmia. Cardiac work-up unremarkable. Lab work was otherwise unremarkable. Does have a history of diabetes. Blood sugar 206. Chronic kidney disease with a creatinine 1.44. Close to his baseline. Patient was given small amount of fluid. Patient blood pressure fluctuated here. He states he was taken off his lisinopril. Concerning for his increasing blood pressure. Discussed starting his lisinopril 10 mg. He agrees with this. He was given meclizine for dizziness. Dizziness improved. He denies of any ear ringing, or ear pain. No appreciation of the nystagmus with Massimo-Hallpike test. Patient ambulated here and walked the hallway without any unsteady gait or feeling like he was going to fall. He states he feels significantly better. Discussed the potential etiolo gies such as vertigo versus neurological. He does report chronic hearing changes to the left ear. He denies headache. Patient was not orthostatic hypotensive. No evidence of bruit. No recent URI. Denies of any current headache. No meningeal signs. Discussed potential other etiologies such as potential cerebellar stroke etc not able to rule out with MRI. However since patient is feeling much better he is requesting to be discharged. Discussed further evaluation with his primary care physician. May need further imaging if this continues versus ENT outpatient follow-up for the vertigo. If any worsening symptoms return back to ED for further evaluation. Family agrees with plan of action Impression Primary Impression: Dizziness Additional Impression: Elevated blood pressure reading Disposition: HOME, SELF-CARE Condition: Stable Departure-Patient Inst. Decision time for Depature: 15:00 Referrals: GARCÍA RM MD (PCP/Family) Primary Care Physician Patient Instructions: High Blood Pressure (DC) Add. Discharge Instructions: Recommend following up with your primary care physician for the dizziness and elevated blood pressure. We will add on lisinopril for blood pressure. If any worsening symptoms return back to ED for further evaluation. Scripts Lisinopril (Lisinopril) 10 Mg Tablet 10 MG PO DAILY, #20 TAB Prov: SHEA SHERMAN 08/01/21 SHEA SHERMAN August 01, 2021 12:25
[2021-08-01 12:26] LABS: BASOPHILS % (AUTO) 1 % (0-10); EOSINOPHILS # (AUTO) 0.2 10^3/uL (0.0-0.3); EOSINOPHILS % (AUTO) 3 % (0-10); HEMATOCRIT 34 % (40-54); HEMOGLOBIN 11.4 g/dL (13.3-17.7); LYMPHOCYTES # (AUTO) 1.1 10^3/uL (1.0-4.0); LYMPHOCYTES % (AUTO) 15 % (12-44); MEAN CORPUSCULAR HEMOGLOBIN 29 pg (25-34); MEAN CORPUSCULAR HGB CONC 34 g/dL (32-36); MEAN CORPUSCULAR VOLUME 86 fL (80-99); MEAN PLATELET VOLUME 9.5 fL (9.0-12.2); MONOCYTES # (AUTO) 0.6 10^3/uL (0.0-1.0); MONOCYTES % (AUTO) 9 % (0-12); NEUTROPHILS # (AUTO) 5.3 10^3/uL (1.8-7.8); NEUTROPHILS % (AUTO) 72 % (42-75); PLATELET COUNT 207 10^3/uL (130-400); WHITE BLOOD COUNT 7.3 10^3/uL (4.3-11.0)
[2021-08-01 12:39] LABS: ALBUMIN 3.8 GM/DL (3.2-4.5); CHLORIDE 104 MMOL/L (98-107); POTASSIUM 4.4 MMOL/L (3.6-5.0); SODIUM 140 MMOL/L (135-145)
[2021-08-01 12:40] LABS: CALCIUM 9.2 MG/DL (8.5-10.1)
[2021-08-01 12:41] LABS: GLUCOSE 206 MG/DL (70-105)
[2021-08-01 12:42] LABS: TOTAL PROTEIN 7.1 GM/DL (6.4-8.2)
[2021-08-01 12:43] LABS: BILIRUBIN,TOTAL 0.4 MG/DL (0.1-1.0); CARBON DIOXIDE 25 MMOL/L (21-32)
[2021-08-01 12:45] LABS: ALKALINE PHOSPHATASE 82 U/L (40-136); CREATININE SERUM 1.44 MG/DL (0.60-1.30); GFR ESTIMATED 50
[2021-08-01 12:46] LABS: BUN/CREATININE RATIO 22
[2021-08-01 12:48] LABS: ALANINE AMINOTRANSFERASE 20 U/L (0-55); MAGNESIUM 1.6 MG/DL (1.6-2.4)
[2021-08-01 13:00] VITALS: BP_SYST 158; BP_SYST 167; BP_SYST 174; BP_DIAS 85; BP_DIAS 86; BP_DIAS 87
--- NOTE | 2021-08-01 13:48 | Diagnostic Imaging Report ---
PROCEDURE: CT head without contrast. TECHNIQUE: Multiple contiguous axial images were obtained through the brain without the use of intravenous contrast. Auto Exposure Controls were utilized during the CT exam to meet ALARA standards for radiation dose reduction. INDICATION: Dizziness and lightheadedness. Unsteady gait. COMPARISON: No comparison available. FINDINGS: There is age related global volume loss. There are moderate microvascular changes within the deep white matter. There are small age-indeterminate lacunar infarcts within the thalami bilaterally. There is no territorial loss of gardner-white differentiation or evidence of vasogenic edema. There is no intracranial mass effect or shift. There is no hydrocephalus. There is no abnormal extra-axial collection. The basilar cisterns are patent. The patient is status post a prior left-sided mastoidectomy. The right mastoids are clear. Paranasal sinuses demonstrate minimal mucosal thickening within the ethmoids. The orbital contents are unremarkable. There are atherosclerotic calcifications within the vessels of the skull base. IMPRESSION: 1. Age-related volume loss with moderate microvascular changes within the white matter. 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 There are no findings of territorial loss of gardner-white differentiation 2. No findings of acute hemorrhage, mass effect or hydrocephalus. 3. Advanced atherosclerosis. Dictated by: Dictated on workstation # [id number]
--- NOTE | 2021-08-01 13:49 | Diagnostic Imaging Report ---
INDICATION: Dizziness and lightheadedness. COMPARISON made with prior study from 04/22/2020. FINDINGS: There is stable enlargement of the cardiac silhouette. The prior airspace opacities within the right lung and left lung base on the previous examination have resolved. There now are what appear to be some background chronic interstitial changes. There is no evidence to suggest current edema or failure. There is no large effusion or pneumothorax. There is a right internal jugular port. The central pulmonary vascularity appears appropriate. IMPRESSION: Chronic pulmonary interstitial changes without evidence of an acute superimposed cardiopulmonary process. Dictated by: Dictated on workstation # [id number]
[2021-08-01] MEDS ORDERED: hydrALAZINE (APESOLINE) 20 MG/ML VIAL IV ONE (14:15)
[2021-08-01] MEDS ORDERED: LISI10TA25 PO (15:01)
[2021-08-01 15:10] VITALS: BP 165/89
== END 2021-08-01 15:10 | disposition home or self-care (01) ==
LOC: EDUNIT# 11:54 → ER 11:56
DX: R42 Dizziness and giddiness (principal); I12.9 Hypertensive chronic kidney disease with stage 1 through stage 4 chronic kidney disease, or unspecified chronic kidney disease; N18.9 Chronic kidney disease, unspecified; E11.22 Type 2 diabetes mellitus with diabetic chronic kidney disease; E11.40 Type 2 diabetes mellitus with diabetic neuropathy, unspecified; Z79.84 Long term (current) use of oral hypoglycemic drugs; Z79.02 Long term (current) use of antithrombotics/antiplatelets
CPT/HCPCS: 36415; 70450; 71045; 80053; 83735; 84484; 85025

== ENCOUNTER → 2021-12-31 | Outpatient (CLI) | payer MEDICARE, MEDICAID ==
[~2021-12-31] VITALS: Ht 175 cm; Wt 80.0 kg
[~2021-12-31] MED LIST changes: +REGADENOSON 0.4 MG/5 ML SYR (LEXISCAN) IV ONE
[2021-12-31] MEDS: CATHETER FLUSH 10 ML SYR IVP PRN ×2 (07:59→09:28)
[2021-12-31 09:22] VITALS: BP 138/98
--- NOTE | 2021-12-31 16:25 | NUCLEAR STRESS TEST ---
REGADENOSON NUCLEAR STRESS Date of procedure: 12/31/2021. Primary care provider: Marty Reynoso MD Admitting physician: Marty Talley Jr., MD. INDICATION: Coronary artery disease without angina. BASELINE ELECTROCARDIOGRAM: Sinus rhythm with nonspecific intraventricular conduction delay. STRESS TEST PROCEDURE: The patient was administered 0.4 mg of intravenous Regadenoson. The resting heart rate was 71 bpm and the peak heart rate was 88 bpm. The resting blood pressure was 138/98 mmHg and the minimum blood pressure was 138/98 mmHg. This represents a normal heart rate and a blunted blood pressure response to Regadenoson. The test was stopped due to the protocol. There was no chest discomfort during the test. There were no arrhythmias during the test. There were no significant stress induced electrocardiogram changes. NUCLEAR PROCEDURE: The patient was administered 10.2 mCi of intravenous technetium 99m Tetrofosmin at rest for the rest images. The patient was subsequently administered 30.5 mCi of intravenous technetium 99m Tetrofosmin at peak stress for the stress images. Following an appropriate wait after each injection, imaging was obtained. The images were subsequently processed and reformatted in the usual views. Gated imaging was obtained. The image quality was adequate with a moderate degree of gastrointestinal and vertical motion artifact. CT attenuation correction was used as a adjunct to standard imaging. Both the corrected and uncorrected images were reviewed for interpretation. NUCLEAR RESULTS: There was a large, severe intensity, predominantly reversible mid to distal inferior and apical defect with a large amount of inducible ischemia with a summed stress score of 17 and a summed difference score of 16. There was normal left ventricular chamber size with an end-diastolic volume of 123 mL and an end-systolic volume of 73 mL. There was no evidence of transient ischemic dilatation. The TID ratio was 1.19. There was mild global hypokinesis with a calculated ejection fraction of 41%. IMPRESSION: 1. Normal heart rate and a blunted blood pressure response to regadenoson. 2. There was no chest discomfort, arrhythmias, or electrocardiogram changes during the test. 3. There was a large, severe intensity, predominantly reversible mid to distal inferior and apical defect with a large amount of inducible ischemia with a summed stress score of 17 and a summed difference score of 16. 4. There was mild global hypokinesis with a calculated ejection fraction of 41%. 5. This is an abnormal result representing an overall high risk for possible future coronary ischemic events in light of the size of the ischemic defect and the depressed ejection fraction. Certain portions of this document may have been dictated utilizing voice recognition technology. Inherent to this technology, typographical and grammatical errors may exist. As much as I am diligent to identify and correct these mistakes, some errors may remain in the document. MARTY TALLEY JR, MD Dec 31, 2021 16:25
== END ==
LOC: CARD 08:45
PROVIDERS: ATTEND Internal Medicine Cardiovascular Disease
DX: I25.10 Atherosclerotic heart disease of native coronary artery without angina pectoris (principal)
CPT/HCPCS: 78452; 93017; A9502

== ENCOUNTER → 2022-01-06 | Outpatient (CLI) | payer MEDICARE, MEDICAID ==
[~2022-01-06] MED LIST changes: +DULA0.75 SQ; -REGADENOSON 0.4 MG/5 ML SYR (LEXISCAN) IV ONE
== END ==
LOC: CARD 08:50
PROVIDERS: ATTEND Internal Medicine Cardiovascular Disease
DX: I08.0 Rheumatic disorders of both mitral and aortic valves (principal); I25.10 Atherosclerotic heart disease of native coronary artery without angina pectoris
CPT/HCPCS: 93306

== ENCOUNTER 2022-01-08 05:21 | Outpatient (CLI) | payer MEDICARE, MEDICAID ==
[~2022-01-08] VITALS: Ht 175.3 cm; Wt 80.0 kg
[~2022-01-08 05:21] MED LIST changes: -DULA0.75 SQ
[2022-01-08] MEDS ORDERED: DULA0.75 SQ (09:51)
== END 2022-01-08 10:15 | disposition home or self-care (01) ==
LOC: PREOP 05:21
PROVIDERS: ATTEND Podiatrist Foot & Ankle Surgery
DX: Z01.818 Encounter for other preprocedural examination (principal)

== ENCOUNTER 2022-01-21 05:33 | Outpatient (CLI) | payer MEDICARE, MEDICAID ==
[~2022-01-21 05:33] MED LIST changes: +DULA0.75 SQ
== END 2022-01-21 14:31 | disposition home or self-care (01) ==
LOC: PREOP 05:33
PROVIDERS: ATTEND Surgery
DX: Z01.818 Encounter for other preprocedural examination (principal)

== ENCOUNTER 2022-01-28 08:56 | Day surgery (SDC) | payer MEDICARE, MEDICAID ==
[~2022-01-28] VITALS: Ht 175.3 cm; Wt 80.0 kg
[2022-01-28] VITALS (11 sets, daily range): BP systolic 117–183; BP diastolic 63–84
--- NOTE | 2022-01-28 09:15 | Progress Note-Pre Operative ---
Pre-Operative Progress Note Date of Available H&P: Jan 18, 2022 Date H&P Reviewed: Jan 28, 2022 Time H&P Reviewed: 09:15 History & Physical: H&P Reviewed, Patient Examed, No changes noted Pre-Operative Diagnosis: right diabtetic foot ulcer STUART BARTHOLOMEW DO Jan 28, 2022 09:15
[2022-01-28] MEDS: LACTATED RINGERS 1,000 ML IV PRN ×2 (09:25→11:35)
[2022-01-28] MEDS ORDERED: ceFAZolin INJECTION 2,000 MG in NS (IVPB) 50 ML IV ONE (09:30)
[2022-01-28] MEDS ORDERED: LIDOCAINE PF 2% 5 ML (XYLOCAINE) VIAL ONE (09:32)
[2022-01-28] MEDS ORDERED: proPOfol 200 MG/20 ML (DIPRIVAN) VIAL IV ONE (09:32)
[2022-01-28] MEDS ORDERED: ONDANSETRON 4 MG/2 ML (SDV) Z0FRAN ONE (09:32)
[2022-01-28] MEDS ORDERED: SEVOFLURANE (ULTANE) 15 ML INHAL SOLN ONE ×2 (09:32→11:36)
[2022-01-28] MEDS ORDERED: fentaNYL INJ 100 MCG/2 ML AMP ONE (09:33)
[2022-01-28] MEDS ORDERED: MIDAZOLAM 2 MG/2 ML (VERSED) VIAL ONE (09:34)
[2022-01-28] MEDS ORDERED: BUP/EPI 0.5% 1:200,000 (MARCAINE) 10ML VIAL IJ ONE (09:52)
--- NOTE | 2022-01-28 11:52 | Discharge Inst-Simple/Standard ---
Discharge Inst-Standard Patient Instructions/Follow Up Plan of Care/Instructions/FU: 2 weeks Adela 12-14 days suture removal. Activity as Tolerated: No Discharge Diet: Regular Diet Other Inst to Patient Follow up Appt: Make appointment for 2 week. Instructions: No lifting greater than 10 pounds. No strenuous activity. May shower in 24 hours, no tub bath or soaking. Use incentive spirometer at home as directed. No Smoking Skin/Wound Care: You have stitches, keep area clean and dry. Symptoms to Report: Appetite Changes, Extremity Discoloration, Numbness/Tingling, Swelling Increased, Bleeding Excessive, Eyesight Changes, Pain Increased, Urine Color Change, Constipation(Persistent), Fever over 101 degree F, Pain/Pressure in chest, Urinating Difficulty, Cough Up/Vomit Blood, Heart Beat Irreg/Pounding, Pain/Pressure in jaw, Vaginal Bleeding Increase, Cramps in feet or legs, Lightheadedness, Pain/Pressure in shoulder, Diarrhea(Persistent), Memory Changes Suddenly, Questions/Concerns, Weight gain consecutive days, Dizziness/Fainting, Nausea/Vomiting, Shortness of Breath, Weight gain over 2 pounds If questions or concerns contact your physician Or seek help at emergency department. STUART BARTHOLOMEW DO Jan 28, 2022 11:52
--- NOTE | 2022-01-28 11:59 | Anesthesia-General Post-Op ---
General Patient Condition Mental Status/LOC: Same as Preop Cardiovascular: Satisfactory Nausea/Vomiting: Absent Respiratory: Satisfactory Pain: Controlled Complications: Absent Post Op Complications Complications None Follow Up Care/Instructions Patient Instructions None needed. Anesthesia/Patient Condition Patient Condition Patient is doing well, no complaints, stable vital signs, no apparent adverse anesthesia problems. No complications reported per nursing. KEYUR LEWIS CRNA Jan 28, 2022 11:59
[2022-01-28] MEDS ORDERED: fentaNYL INJ 100 MCG/2 ML AMP IVP ONE (12:00)
[2022-01-28] MEDS ORDERED: ONDANSETRON 4 MG/2 ML (SDV) Z0FRAN IVP PRN (12:00)
[2022-01-28] MEDS ORDERED: MEPERIDINE (DEMEROL) INJ 50 MG/ML IVP ONE (12:00)
[2022-01-28] MEDS ORDERED: morphine INJ 10 MG/ML 1ML (SYR OR VIAL) IVP ONE (12:00)
--- NOTE | 2022-01-29 04:09 | OPERATIVE REPORT ---
DATE OF SERVICE: 01/28/2022 PREOPERATIVE DIAGNOSIS: Right diabetic foot ulcer. POSTOPERATIVE DIAGNOSIS: Right diabetic foot ulcer. PROCEDURE: Right first metatarsal bone biopsy. SURGEON: Stuart Chpaman DO ANESTHESIA: General. ESTIMATED BLOOD LOSS: Minimal. COMPLICATIONS: None. INDICATIONS: The patient is a 76-year-old male with a right diabetic foot ulcer concerning findings for osteomyelitis of the first metatarsal. The patient was discussed risks and benefits of having bone biopsy performed for further evaluation. He understands and wishes to proceed. Consent was signed in chart. DESCRIPTION OF PROCEDURE: The patient was taken to the operating suite where he was prepped and draped in sterile fashion. Surgical timeout was performed. Local anesthetic was infiltrated. A 15 blade scalpel was used to make a skin incision over the first metatarsal. A cautery was used to dissect down to the first metatarsal. A core biopsy of the metatarsal was obtained. Specimen was sent to pathology. Local anesthetic was infiltrated and also used to irrigate the wound. The skin was then closed using 3-0 Prolene in a simple interrupted fashion. The area was washed and dried and sterile bandage was applied. The patient tolerated the procedure well without any complications and taken to recovery room in stable condition. The patient will follow up on pathology and sutures will be removed in approximately 2 weeks. Any issues before that will be seen at that time. Job ID: [id number] DocumentID: [id number] Dictated Date: 01/28/2022 18:07:57 Purchasing Associate Date: 01/29/2022 04:07:00 Dictated By: STUART CHAPMAN DO
== END 2022-01-28 13:55 | disposition home or self-care (01) ==
LOC: SDC 08:56
PROVIDERS: ATTEND Surgery
DX: E11.621 Type 2 diabetes mellitus with foot ulcer (principal); M79.89 Other specified soft tissue disorders; L97.512 Non-pressure chronic ulcer of other part of right foot with fat layer exposed; Z79.84 Long term (current) use of oral hypoglycemic drugs; Z87.891 Personal history of nicotine dependence
CPT/HCPCS: 82947; 87081

== ENCOUNTER → 2022-02-15 | Outpatient (CLI) | payer MEDICARE, MEDICAID ==
[~2022-02-15] MED LIST changes: +DULA1.5P2 SQ; +MULT-1136 PO; +POLY30DR6 OP
[2022-02-15 09:16] LABS: BASOPHILS # (AUTO) 0.1 10^3/uL (0.0-0.1); BASOPHILS % (AUTO) 1 % (0-10); EOSINOPHILS # (AUTO) 0.3 10^3/uL (0.0-0.3); EOSINOPHILS % (AUTO) 5 % (0-10); HEMATOCRIT 33 % (40-54); HEMOGLOBIN 11.2 g/dL (13.3-17.7); LYMPHOCYTES # (AUTO) 1.6 10^3/uL (1.0-4.0); LYMPHOCYTES % (AUTO) 26 % (12-44); MEAN CORPUSCULAR HEMOGLOBIN 30 pg (25-34); MEAN CORPUSCULAR HGB CONC 34 g/dL (32-36); MEAN CORPUSCULAR VOLUME 87 fL (80-99); MEAN PLATELET VOLUME 9.2 fL (9.0-12.2); MONOCYTES # (AUTO) 0.7 10^3/uL (0.0-1.0); MONOCYTES % (AUTO) 11 % (0-12); NEUTROPHILS # (AUTO) 3.5 10^3/uL (1.8-7.8); NEUTROPHILS % (AUTO) 56 % (42-75); PLATELET COUNT 242 10^3/uL (130-400); WHITE BLOOD COUNT 6.2 10^3/uL (4.3-11.0)
[2022-02-15 09:34] LABS: PROTHROMBIN TIME PATIENT 13.5 SEC (12.2-14.7)
[2022-02-15 10:12] LABS: CALCIUM 9.2 MG/DL (8.5-10.1); CREATININE SERUM 1.54 MG/DL (0.60-1.30); POTASSIUM 5.3 MMOL/L (3.6-5.0)
== END ==
LOC: LAB 08:49
PROVIDERS: ATTEND Internal Medicine Cardiovascular Disease
DX: I25.10 Atherosclerotic heart disease of native coronary artery without angina pectoris (principal); I73.9 Peripheral vascular disease, unspecified; I35.0 Nonrheumatic aortic (valve) stenosis; E78.01 Familial hypercholesterolemia; I65.23 Occlusion and stenosis of bilateral carotid arteries; I12.9 Hypertensive chronic kidney disease with stage 1 through stage 4 chronic kidney disease, or unspecified chronic kidney disease; N18.32 Chronic kidney disease, stage 3b; J44.9 Chronic obstructive pulmonary disease, unspecified; E11.22 Type 2 diabetes mellitus with diabetic chronic kidney disease; E66.3 Overweight; Z71.89 Other specified counseling
CPT/HCPCS: 36415; 80048; 85025; 85610

== ENCOUNTER 2022-02-18 09:00 | Day surgery (SDC) | payer MEDICARE, MEDICAID ==
[2022-02-18] VITALS (9 sets, daily range): BP systolic 148–180; BP diastolic 72–88
[~2022-02-18] VITALS: Ht 175 cm; Wt 80.0 kg
[~2022-02-18 09:00] MED LIST changes: +ASPIRIN 81 MG CHEW (CHILDREN'S ASA) PO ONE; +CATHETER FLUSH 10 ML SYR IV PRN; -DULA1.5P2 SQ; -MULT-1136 PO; +NS IV 1000 ML 1,000 ML IV ONE; -POLY30DR6 OP
[2022-02-18] MEDS ORDERED: NS IV 1000 ML 1,000 ML ONE (09:04)
[2022-02-18] MEDS ORDERED: LIDOCAINE 1% INJ 30 ML (XYLOCAINE) VIAL ONE (09:04)
[2022-02-18] MEDS ORDERED: HEParin (CATH LAB) 2,000 ML IV ONE (09:04)
[2022-02-18] MEDS ORDERED: MIDAZOLAM 5 MG/5 ML (VERSED) VIAL ONE (09:32)
[2022-02-18] MEDS ORDERED: NITRO DRIP 25000 MCG/D5W 250 ML IV ONE (09:32)
[2022-02-18] MEDS ORDERED: HEParin 1000 UNIT/ML (10ML VIAL) FOR BOLUS ONE (09:32)
[2022-02-18] MEDS ORDERED: fentaNYL INJ 100 MCG/2 ML AMP ONE (09:32)
[2022-02-18] MEDS ORDERED: VERAPAMIL 5 MG/2 ML (CALAN) VIAL IV ONE (09:32)
[2022-02-18] MEDS ORDERED: ASPIRIN 325 MG (5 GR) TABLET ONE (09:32)
[2022-02-18] MEDS ORDERED: ASPIRIN 81 MG CHEW (CHILDREN'S ASA) ONE (09:36)
--- NOTE | 2022-02-18 09:38 | Pre-Op Note & Conscious Sedat ---
Pre-Operative Progress Note Date H&P Reviewed: Feb 18, 2022 Time H&P Reviewed: 09:34 History & Physical: H&P Reviewed, Patient Examed, No changes noted Changes from last HP No changes Pre-Op Diagnosis: Coronary artery disease without angina and abnormal stress test Conscious Sedation Pre-Proced ASA Score 2 For ASA 3 and 4: Consider anesthesia and medical clearance. Also, for patients with a history of failed moderate sedation consider anesthesia. Airway Lungs Heart ASA score ASA 1: a normal healthy patient ASA 2: a patient with a mild systemic disease (mid diabetes, controlled hypertension, obesity ASA 3: a patient with a severe systemic disease that limits activity (angina, COPD, prior Myocardial infarction) ASA 4: a patient with an incapacitating disease that is a constant threat to life (CHF, renal failure) ASA 5: a moribund patient not expected to survive 24 hrs. (ruptured aneurysm) ASA 6: a declared brain- patient whose organs are being harvested. For emergent operations, add the letter E after the classification Mallampati Classification Grade 2 Sedation Plan Analgesia, Amnesia, Plan communicated to team members, Discussed options with patient/fam, Discussed risks with patient/fam The patient is an appropriate candidate to undergo the planned procedure, sedation, and anesthesia. The patient immediately re-assessed prior to indication. Given his current clinical status, he is considered mildly frail. He has no history of heart failure. He has normal left ventricular systolic function with an estimated ejection fraction of 50-55% by echocardiogram performed on 01/06/2022. He had a nuclear stress test on 12/31/2021 that showed a large inferior and apical ischemic defect. GARCÍA RUEDA JR, MD Feb 18, 2022 09:38
[2022-02-18] MEDS ORDERED: MULT-1136 PO (09:49)
[2022-02-18] MEDS ORDERED: LISI10TA25 PO (09:49)
[2022-02-18] MEDS ORDERED: DULA1.5P2 SQ (09:49)
[2022-02-18] MEDS ORDERED: POLY30DR6 OP (09:49)
--- NOTE | 2022-02-18 10:41 | Cardiac Cath Report ---
CARDIAC CATHETERIZATION DATE OF PROCEDURE: 02/18/2022 INDICATION: Coronary artery disease and abnormal nuclear stress test. HISTORY: The patient is a 76 year old male with a known history of severe three- vessel coronary artery disease that was detected at cardiac catheterization on 08/09/2018. The plan was referral to cardiothoracic surgery but he had a no nhealing ulcer on his right lower extremity. The plan was to wait for this to heal but then the patient was lost to follow-up. He recently reestablished cardiac care. I had him undergo a nuclear stress test which showed a large inferoapical ischemic defect. In light of these findings, he is now referred for further evaluation with a cardiac catheterization. Given his current c linical status, he is considered mildly frail. He has no history of heart failure. PROCEDURES PERFORMED: 1. Left heart catheterization with hemodynamic measurements. 2. Diagnostic [place] coronary angiography. PROCEDURE DESCRIPTION: After informed consent and in the fasting state, left heart catheterization was performed through the right radial artery utilizing a 6 [place]ian system by percutaneous approach. Due to tortuosity and the brachiocephalic trunk, I was not able to cross through this area with either a JR4 or AL-1 catheter. I subsequently obtained access to the right femoral artery by percutaneous approach utilizing a micropuncture technique. The micropuncture sheath was then exchanged for a 5 [place] sheath. Standard Jeremie catheters were utilized for the diagnostic portion of the procedure. All catheters were exchanged over a guidewire. Following the procedure, a vascular band was applied to the radial artery access site and the sheath was removed with good hemostasis. Following the procedure, a right femoral angiogram revealed the vessel to have mild diffuse disease and the sheath entered just above the bifurcation. A Mynx closure device was deployed for hemostasis. RESULTS: HEMODYNAMICS: The aortic pressure was 119/56 mmHg. The left ventricular pressure was 129/0 mmHg with a left ventricular end-diastolic pressure of 10 mmHg. There was no significant pressure gradient upon pullback across the aortic valve. CORONARY ANGIOGRAPHY: The coronary arteries were diffusely calcified. Left main coronary artery: []. Left anterior descending coronary artery: There was an 80% stenosis in the distal segment with DANNY-2 flow. There was a large bifurcating first diagonal branch which contained a 60% stenosis proximally with DANNY-2 flow. Left circumflex coronary artery: Distally diseased with a focal 70% stenosis in the midportion just proximal to 2 obtuse marginal branches with DANNY-2 flow. There were 2 small obtuse marginal branches which contained mild diffuse disease. Are approximately 1.5-1.75 mm vessels. Ramus intermedius branch: There was a moderate sized ramus intermedius branch which contained a long 70% stenosis proximally with DANNY-3 flow. Right coronary artery: Dominant and there were 2 sequential 70% stenosis in the midsegment followed by another 80% stenosis at the crux of the vessel and then another 80% stenosis distally right at the bifurcation with a Frazier classification of 1, 0, 1 with DANNY-2 flow. The posterior descending artery contained a 90% stenosis proximally which was part of the bifurcation lesion noted above with DANNY-2 flow. IMPRESSION: 1. Normal left heart pressures. 2. Severe calcific [place] three-vessel coronary artery disease as outlined above. The left main coronary artery and proximal left anterior descending coronary artery are relatively spared. 3. The patient is known to have normal left ventricular systolic function with an estimated ejection fraction of 50-55% by echocardiogram that was performed on 01/06/2022. 4. The patient will be referred for an outpatient cardiothoracic surgical consultation for consideration of coronary artery bypass surgery. Certain portions of this document may have been dictated utilizing voice recognition technology. Inherent to this technology, typographical and grammatical errors may exist. As much as I am diligent to identify and correct these mistakes, some errors may remain in the document. GARCÍA RUEDA JR, MD Feb 18, 2022 10:41
[2022-02-18] MEDS ORDERED: NS IV 1000 ML 1,000 ML IV SCH (10:45)
== END 2022-02-18 14:10 | disposition home or self-care (01) ==
LOC: CATH 09:00 → SDC 11:21 → CATH 14:10
PROVIDERS: ATTEND Internal Medicine Cardiovascular Disease
DX: I25.10 Atherosclerotic heart disease of native coronary artery without angina pectoris (principal); E11.22 Type 2 diabetes mellitus with diabetic chronic kidney disease; I12.9 Hypertensive chronic kidney disease with stage 1 through stage 4 chronic kidney disease, or unspecified chronic kidney disease; J44.9 Chronic obstructive pulmonary disease, unspecified; N18.32 Chronic kidney disease, stage 3b; E78.01 Familial hypercholesterolemia; E66.3 Overweight; I65.23 Occlusion and stenosis of bilateral carotid arteries; E11.42 Type 2 diabetes mellitus with diabetic polyneuropathy; I35.0 Nonrheumatic aortic (valve) stenosis; Z68.25 Body mass index [BMI] 25.0-25.9, adult; Z87.891 Personal history of nicotine dependence; Z79.82 Long term (current) use of aspirin; Z79.84 Long term (current) use of oral hypoglycemic drugs
CPT/HCPCS: 36140; 87081; 93458

== ENCOUNTER → 2022-03-02 | Outpatient (CLI) | payer MEDICARE, MEDICAID ==
[~2022-03-02] MED LIST changes: -ASPIRIN 81 MG CHEW (CHILDREN'S ASA) PO ONE; +DULA1.5P2 SQ; +HOLD METFORMIN - RECEIVED CONTRAST 20 ML VIAL IV SCH; +IOHEXOL 350 MG/ML 100 ML (OMNIPAQUE 350) VIAL IV ONE; +MULT-1136 PO; +NS 100 ML (IVPB) BAG IV ONE; -NS IV 1000 ML 1,000 ML IV ONE; +POLY30DR6 OP
[2022-03-02 09:18] LABS: CREATININE SERUM 1.25 MG/DL (0.60-1.30)
--- NOTE | 2022-03-02 14:37 | Diagnostic Imaging Report ---
PROCEDURE: CTA Head/Neck TECHNIQUE: After intravenous contrast administration, helical CT angiography of the neck was performed. Source data was reformatted into 3D MIP projections. Delayed post contrast acquisition was also obtained. All CT scans use one or more of the following dose optimizing techniques: automated exposure control, MA and/or KvP adjustment based on a patient size and exam type, or iterative reconstruction. INDICATION: Atherosclerosis of the bilateral carotid arteries. Follow-up. Comparison: 04/20/2020. FINDINGS: CTA Neck: The visualized portions of the aortic arch demonstrate atherosclerotic plaque without evidence of aneurysm or dissection. There is conventional branching pattern of the great vessels of the aorta. The brachiocephalic artery is normal in course and caliber. The right and left common carotid origins are unremarkable. The origin of the left subclavian artery is patent. The common carotid arteries and internal carotid arteries demonstrate a tortuous course. There is calcified atherosclerotic plaque in the bilateral carotid bulbs and proximal internal carotid arteries. There is approximately 90% stenosis in the proximal to midportion of the left internal carotid artery. 50-69% stenosis is seen in the proximal right internal carotid artery. No evidence of dissection in the carotid systems. The external carotid arteries are patent and unremarkable. The vertebral arteries are codominant. The origin of the right vertebral artery is seen and is unremarkable. The origin of the left vertebral artery is seen and is unremarkable. There is no focal stenosis seen within the neck. There is no dissection. The vertebral arteries are well visualized to up to the level of the basilar artery. The osseous structures of the cervical spine are unremarkable. Included views through the lung apices demonstrate no focal consolidation. CTA brain: Atherosclerotic plaque is seen in the [place] of the bilateral terminal internal carotid arteries without significant stenosis. No stenosis is seen in the bilateral anterior, middle, and posterior cerebral arteries. Hypoplastic left A1 segment is seen. There is origin of the left [employer]. No evidence of aneurysm the [place]. In the posterior circulation, both of the vertebral arteries demonstrate normal opacification. The vertebral arteries are codominant. Both the right and left PICA arteries are identified. The basilar artery is normal in course and caliber. The terminal branch vessels including the superior cerebellar arteries unremarkable. IMPRESSION: 1. High-grade stenosis of approximately 90% in the proximal to midportion of the left internal carotid artery secondary to atherosclerotic plaque. Stenosis of 50-69% is seen in the proximal right ICA. 2. No stenosis or aneurysm in the [place]. 3. No stenosis or dissection in the bilateral vertebral arteries. Dictated by: Dictated on workstation # [id number]
== END ==
LOC: RAD 09:45
PROVIDERS: ATTEND Internal Medicine Cardiovascular Disease
DX: I65.23 Occlusion and stenosis of bilateral carotid arteries (principal)
CPT/HCPCS: 36415; 70498; 82565; 84520

== ENCOUNTER 2022-08-15 14:42 | Emergency (ER) | payer MEDICARE, MEDICAID ==
[~2022-08-15] VITALS: Ht 175 cm; Wt 78.0 kg
[~2022-08-15 14:42] MED LIST changes: -CATHETER FLUSH 10 ML SYR IV PRN; -HOLD METFORMIN - RECEIVED CONTRAST 20 ML VIAL IV SCH; -INSU100I29 SQ; +INSU100I30 SQ; -IOHEXOL 350 MG/ML 100 ML (OMNIPAQUE 350) VIAL IV ONE; -NS 100 ML (IVPB) BAG IV ONE
--- NOTE | 2022-08-15 15:03 | ED General ---
General Chief Complaint: Lower Extremity Stated Complaint: RIGHT HIP PAIN/LETHARGIC Source of Information: Patient, Family (daughter) History of Present Illness Date Seen by Provider: August 15, 2022 Time Seen by Provider: 14:50 Initial Comments Patient is a 77-year-old male who presents to the emergency room with a chief complaint of right hip pain over the course of the last week, being a little bit more tired and lethargic than usual. Patient has a history of high blood pressure, vascular disease both peripheral and cardiac. He is a diabetic. He has had a draining wound at his right great toe for the past several weeks. Has had prior biopsy at this area and concern for infection. Patient states that he is really "neglected" his toe for quite a while. He denies fevers or chills. No shortness of breath. No nausea or vomiting. He denies any trauma to the right hip. He states laying on his right side makes his pain worse. No numbness weakness or tingling to the right lower extremity. No swelling Timing/Duration: 4-5 Days Severity: Moderate Modifying Factors: worse with Movement; improves with Other (laying on right side) Allergies and Home Medications Allergies Coded Allergies: No Known Drug Allergies (Unverified , 01/22/10) Patient Home Medication List Home Medication List Reviewed: Yes Aspirin (Aspirin EC) 81 Mg Tablet.dr, 81 MG PO DAILY, (Reported) Entered as Reported by: MARYCRUZ MAST on 04/17/20 154 Atorvastatin Calcium (Atorvastatin Calcium) 80 Mg Tablet, 80 MG PO HS, (Reported) Entered as Reported by: MARYCRUZ MAST on 04/17/20 1549 Doxycycline Hyclate (Doxycycline Hyclate) 100 Mg Tablet, 100 MG PO BID Prescribed by: PEPE MASTERSON on 08/15/22 1653 Dulaglutide (Trulicity) 1.5 Mg/0.5 Ml Pen.injctr, 1.5 MG SQ TUESDAY, (Reported) Entered as Reported by: MICHELLE SANCHEZ on 02/18/22 0949 Glipizide (Glipizide) 10 Mg Tablet, 10 MG PO DAILY, (Reported) Entered as Reported by: MARYCRUZ MAST on 04/17/20 1549 Isosorbide Mononitrate (Isosorbide Mononitrate ER) 30 Mg Tab.er.24h, 30 MG PO DAILY, (Reported) Entered as Reported by: MARYCRUZ MAST on 04/17/20 154 Lisinopril (Lisinopril) 10 Mg Tablet, 10 MG PO DAILY, (Reported) Entered as Reported by: MICHELLE SANCHEZ on 02/18/22 0949 Metformin HCl (Metformin HCl) 500 Mg Tablet, 500 MG PO BID, (Reported) Entered as Reported by: MARYCRUZ MAST on 04/17/20 154 Multivitamin (Multivitamin) 1 Each Tablet, 1 EACH PO DAILY, (Reported) Entered as Reported by: MICHELLE SANCHEZ on 02/18/22 0949 Dazey-3 Fatty Acids/Fish Oil (Dazey 3 1,000 mg Softgel) 1 Each Capsule, 1 EACH PO DAILY, (Reported) Entered as Reported by: MARYCRUZ MAST on 04/17/20 154 Polyethylene Glycol 400 (Visine Dry Eye Relief) 1 % Drops, 1 DROP OP DAILY PRN for DRY EYES, (Reported) Entered as Reported by: MICHELLE SANCHEZ on 02/18/2249 Sertraline HCl (Sertraline HCl) 50 Mg Tablet, 50 MG PO HS, (Reported) Entered as Reported by: MARYCRUZ MAST on 04/17/20 154 Tramadol HCl (Tramadol HCl) 50 Mg Tablet, 50 MG PO Q6H PRN for PAIN Prescribed by: PEPE MASTERSON on 08/15/22 165 Review of Systems Review of Systems Constitutional: see HPI EENTM: no symptoms reported Respiratory: no symptoms reported Cardiovascular: no symptoms reported Gastrointestinal: no symptoms reported Genitourinary: no symptoms reported Musculoskeletal: joint pain (right hip pain; right great toe wound draining) Skin: other (wound plantar surface right MTP joint) Past [id number]-Gylcwp-Foyhsh Hx Patient Social History Tobacco Use?: No Substance use?: No Alcohol Use?: No Pt feels they are or have been: No Immunizations Up To Date Tetanus Booster (TDap): Unknown First/Initial COVID19 Vaccinat: 2020 Second COVID19 Vaccination Javed: 2021 Third COVID19 Vaccination Date: 2020 Seasonal Allergies Seasonal Allergies: Yes Past Medical History Surgery/Hospitalization HX: PMH: DM, PERIPHERAL VASCULAR DISEASE, HEART CATH- NO INTERVENTION, HTN, CAROTID ARTERY, COPD. Surgeries: Yes (CANCER ON BACK REMOVED) Tonsillectomy Respiratory: Yes (CHRONIC BRONCHITIS) Sleep Apnea, COPD Currently Using BIPAP: No Cardiac: Yes High Cholesterol, Hypertension Neurological: Yes ("SMALL STOKE YEARS AGO") Neuropathy, Stroke Genitourinary: No Renal Failure Gastrointestinal: Yes (CONSTIPATION) Abdominal Hernia, Hiatal Hernia Musculoskeletal: Yes (CURRENTLY OSTEOMYLITIS) Arthritis Endocrine: Yes Diabetes, Non-Insulin dep HEENT: No (VENETIE [place] LEFT EAR) Hearing Impairment: Hard of Hearing Cancer: Yes Skin Did You Recieve Any Treatments: No What Type of Treatment Did You: Surgical Intervention Psychosocial: Yes Sleep Difficulties, Anxiety, Depression Integumentary: Yes (SKIN CANCER ON BACK) Blood Disorders: No Family Medical History Alzheimer's disease 19 MOTHER G8 BROTHER Arthritis 19 FATHER 19 MOTHER G8 BROTHER G8 BROTHER G8 SISTER G8 SISTER G8 SISTER Cardiovascular disease G8 SISTER Cataracts G8 SISTER Completed stroke G8 SISTER Dementia 19 MOTHER Diabetes mellitus 19 MOTHER G8 SISTER DAUGHTER Hypercholesterolemia 19 MOTHER Hypertension 19 MOTHER Myocardial infarction 19 FATHER Respiratory disorder G8 SISTER No Pertinent Family Hx Physical Exam Vital Signs Vital Signs - First Documented 08/15/22 14:57 Temp 36.8 Pulse 74 Resp 16 B/P (MAP) 152/87 (108) Pulse Ox 98 Capillary Refill : Height, Weight, BMI Height: 5'9.00" Weight: 179lbs. 0.0oz. [id number]; 26.12 BMI Method: General Appearance: No Apparent Distress, WD/WN Focused Exam Lactate Level 08/15/22 15:02: Lactic Acid Level 1.19 Lactic Acid Level Laboratory Tests Test 08/15/22 15:02 Lactic Acid Level 1.19 MMOL/L (0.50-2.00) Progress/Results/Core Measures Suspected Sepsis SIRS Temperature: Pulse: Respiratory Rate: Laboratory Tests 08/15/22 15:02: White Blood Count 5.3 Blood Pressure / Mean: 08/15/22 15:02: Lactic Acid Level 1.19 Laboratory Tests 08/15/22 15:02: Creatinine 1.80H, INR Comment 1.1, Platelet Count 203, Total Bilirubin 0.3 Results/Orders Lab Results Laboratory Tests Test 08/15/22 15:02 08/15/22 15:53 08/15/22 16:27 Range/Units White Blood Count 5.3 4.3-11.0 10^3/uL Red Blood Count 3.87 L 4.30-5.52 10^6/uL Hemoglobin 11.0 L 13.3-17.7 g/dL Hematocrit 33 L 40-54 % Mean Corpuscular Volume 85 80-99 fL Mean Corpuscular Hemoglobin 28 25-34 pg Mean Corpuscular Hemoglobin Concent 33 32-36 g/dL Red Cell Distribution Width 13.9 10.0-14.5 % Platelet Count 203 130-400 10^3/uL Mean Platelet Volume 9.4 9.0-12.2 fL Immature Granulocyte % (Auto) 0 % Neutrophils (%) (Auto) 54 42-75 % Lymphocytes (%) (Auto) 25 12-44 % Monocytes (%) (Auto) 16 H 0-12 % Eosinophils (%) (Auto) 4 0-10 % Basophils (%) (Auto) 1 0-10 % Neutrophils # (Auto) 2.9 1.8-7.8 10^3/uL Lymphocytes # (Auto) 1.3 1.0-4.0 10^3/uL Monocytes # (Auto) 0.8 0.0-1.0 10^3/uL Eosinophils # (Auto) 0.2 0.0-0.3 10^3/uL Basophils # (Auto) 0.1 0.0-0.1 10^3/uL Immature Granulocyte # (Auto) 0.0 0.0-0.1 10^3/uL Erythrocyte Sedimentation Rate 26 0-30 MM/HR Prothrombin Time 14.0 12.2-14.7 SEC INR Comment 1.1 0.8-1.4 Activated Partial Thromboplast Time 31 24-35 SEC Sodium Level 137 135-145 MMOL/L Potassium Level 4.5 3.6-5.0 MMOL/L Chloride Level 106 98-107 MMOL/L Carbon Dioxide Level 23 21-32 MMOL/L Anion Gap 8 5-14 MMOL/L Blood Urea Nitrogen 35 H 7-18 MG/DL Creatinine 1.80 H 0.60-1.30 MG/DL Estimat Glomerular Filtration Rate 38 BUN/Creatinine Ratio 19 Glucose Level 56 *L 70-105 MG/DL Lactic Acid Level 1.19 0.50-2.00 MMOL/L Calcium Level 8.9 8.5-10.1 MG/DL Corrected Calcium 9.1 8.5-10.1 MG/DL Total Bilirubin 0.3 0.1-1.0 MG/DL Aspartate Amino Transf (AST/SGOT) 20 5-34 U/L Alanine Aminotransferase (ALT/SGPT) 18 0-55 U/L Alkaline Phosphatase 86 40-136 U/L Total Protein 7.1 6.4-8.2 GM/DL Albumin 3.8 3.2-4.5 GM/DL Urine Color YELLOW Urine Clarity CLEAR Urine pH 6.0 5-9 Urine Specific [place] >=1.030 1.016-1.022 Urine Protein 3+ H NEGATIVE Urine Glucose (UA) NEGATIVE NEGATIVE Urine Ketones NEGATIVE NEGATIVE Urine Nitrite NEGATIVE NEGATIVE Urine Bilirubin NEGATIVE NEGATIVE Urine Urobilinogen 1.0 < = 1.0 MG/DL Urine Leukocyte Esterase NEGATIVE NEGATIVE Urine RBC (Auto) TRACE-I H NEGATIVE Urine RBC RARE /HPF Urine WBC RARE /HPF Urine Squamous Epithelial Cells RARE /HPF Urine Crystals NONE /LPF Urine Bacteria TRACE /HPF Urine Casts PRESENT /LPF Urine Hyaline Casts 2-5 H /LPF Urine Mucus NEGATIVE /LPF Urine Culture Indicated CULTURE PENDING Glucometer 69 L 70-110 MG/DL My Orders Orders - PEPE MASTERSON MD Cbc With Automated Diff (08/15/22 15:03) Comprehensive Metabolic Panel (08/15/22 15:03) Blood Culture (08/15/22 15:03) Sputum Culture (08/15/22 15:03) Urinalysis (08/15/22 15:03) Urine Culture (08/15/22 15:03) Protime With Inr (08/15/22 15:03) Partial Thromboplastin Time (08/15/22 15:03) Chest 1 View, Ap/Pa Only (08/15/22 15:03) Ed Iv/Invasive Line Start (08/15/22 15:03) Ed Iv/Invasive Line Start (08/15/22 15:03) Vital Signs Adult Sepsis Patie Q15M (08/15/22 15:03) O2 (08/15/22 15:03) Remove Rings In Anticipation O (08/15/22 15:03) Lactic Acid Analyzer (08/15/22 15:03) Erythrocyte Sedimentation Rate (08/15/22 15:03) Foot, Right, 2 View (08/15/22 15:03) Wound Culture (08/15/22 15:20) General/Regular (08/15/22 Lunch) Ns Iv 1000 Ml (Sodium Chloride 0.9%) (08/15/22 16:30) Vital Signs/I&O 08/15/22 14:57 Temp 36.8 Pulse 74 Resp 16 B/P (MAP) 152/87 (108) Pulse Ox 98 Capillary Refill : Progress Note : Time: 16:44 Progress Note Patient seen and evaluated by me. Evaluation today includes physical exam, CBC, Chem-12, coags, urinalysis, chest x-ray, right foot x-ray, blood cultures, lactic acid, sed rate, wound culture of the right great toe. Pertinent physical exam findings elderly male in no acute distress. Slightly pale. Vital signs are stable. Heart is regular. Lungs are clear. Patient has point tenderness over the posterior superior iliac crest. No overlying rashes, swelling or erythema. He has an ulcerative wound on the plantar surface at the right MTP joint of the first digit. Mild surrounding erythema. Differential diagnosis based on history and physical exam, sepsis, cellulitis, arthritis. Labs and imaging reviewed and interpreted by me. CBC shows a white count of 5.3 hemoglobin and hematocrit of 11 and 33. Platelets are 203. Patient has 16% monocytes. Normal chemistry with a BUN and creatinine of 35 and 1.8 which is increased over prior lab results. His initial glucose was 56. The patient was fed and repeat blood glucose 69. Lactic acid is 1.19. Sed rate is 26. Coags are normal. UA is quite concentrated with specific gravity greater than 1.030. Chest x-ray is unremarkable with no infiltrate or effusion. Right foot x-ray shows erosions at the first MTP joint concerning to the radiologist for signs of osteomyelitis. Patient is afebrile. He does have some evidence of cellulitis over the medial aspect of the MTP joint. We will put him on some antibiotics. Culture has been obtained. We will refer the patient back to Dr. Bartholomew who has previously evaluated his foot. I do not think that the patient needs to be admitted at this time for work-up of osteomyelitis. I think his hip pain is related to arthritis. We will send him home with some tramadol. I did recommend that he go back to wound care for further evaluation of the ulcer on his toe. Findings and plan of care communicated to the patient and his daughter who is at the bedside. He was also given a liter of normal saline for his increased BUN and creatinine and concentrated urine. Diagnostic Imaging Diagonstic Imaging: Xray Plain Films/CT/US/NM/MRI: chest Comments [facility], [place] NAME: BRITTANY GABRIEL [facility] REC#: [id number] PT STATUS: REG ER : 1945 PHYSICIAN: PEPE MASTERSON MD ADMIT DATE: 08/15/22/ER Draft Date of Exam:08/15/22 CHEST 1 VIEW, AP/PA ONLY EXAMINATION: Chest 1 view. HISTORY: Hip pain. COMPARISON: 08/01/2021. FINDINGS: The lungs are clear without edema or pneumonia. No pleural effusion or pneumothorax. Heart size is normal. A right-sided portacatheter is present. IMPRESSION: Clear lungs. Dictated on workstation # [id number] Dict: 08/15/22 1527 Trans: 08/15/22 1533 [facility] [id number] Interpreted by: MARK CHANDRA MD Electronically signed by: Diagonstic Imaging: Xray Comments [facility] [place] NAME: BRITTANY GABRIEL [facility] REC#: [id number] PT STATUS: REG ER : 1945 PHYSICIAN: PEPE MASTERSON MD ADMIT DATE: 08/15/22/ER Draft Date of Exam:08/15/22 FOOT, RIGHT, 2 VIEW EXAMINATION: Right foot two view. HISTORY: Foot wound. COMPARISON: None available. FINDINGS: There is joint space irregularity of the first metatarsophalangeal joint. There are erosions in the base of the proximal phalanx of the first toe. No fracture is seen. There is a skin irregularity overlying the base of the fifth metatarsal. No underlying erosion is seen. There is mid foot osteoarthritis. No fracture. IMPRESSION: Erosions and joint space irregularity of the first metatarsophalangeal joint concerning for osteomyelitis. Dictated on workstation # [id number] Dict: 08/15/22 1528 Trans: 08/15/22 1535 [facility] [id number] Interpreted by: MARK CHANDRA MD Electronically signed by: Departure Impression Primary Impression: Right hip pain Additional Impressions: Cellulitis of great toe, right Diabetic foot ulcer Qualified Codes: E11.621 - Type 2 diabetes mellitus with foot ulcer; L97.519 - Non-pressure chronic ulcer of other part of right foot with unspecified severity Volume depletion Acute kidney injury Disposition: HOME, SELF-CARE Condition: Stable Departure-Patient Inst. Decision time for Depature: 16:52 Referrals: [facility] [place] Primary Care Physician STUART BARTHOLOMEW DO Patient Instructions: Diabetic Foot Ulcer (DC), Hip pain in older people Add. Discharge Instructions: Please take the antibiotics, doxycycline 100 mg tablets twice a day for 10 days for the infection around your foot. Please call Dr. Bartholomew's office on Tuesday morning for a follow-up appointment to further evaluate the ulcer at your big toe. If you develop a fever, worsening redness, swelling in the foot or pain please return to the emergency room for reevaluation. I have sent a prescription for tramadol, a pain medication to [facility]. You can take 1 pill every 6 hours as needed for pain. Always take this medication with food. If you have any new, concerning or emergent complaints please return to the [facility] room for reevaluation. Scripts Tramadol HCl (Tramadol HCl) 50 Mg Tablet 50 MG PO Q6H PRN for PAIN, #20 TAB 0 Refills Prov: PEPE MASTERSON MD 08/15/22 Doxycycline Hyclate (Doxycycline Hyclate) 100 Mg Tablet 100 MG PO BID for 10 Days, #20 TAB 0 Refills Prov: PEPE MASTERSON MD 08/15/22 Copy Copies To 1: DARIEL EDWARDS DO Copies To 2: STUART BARTHOLOMEW DO PEPE MASTERSON MD August 15, 2022 15:03
[2022-08-15 15:11] LABS: BASOPHILS # (AUTO) 0.1 10^3/uL (0.0-0.1); BASOPHILS % (AUTO) 1 % (0-10); EOSINOPHILS # (AUTO) 0.2 10^3/uL (0.0-0.3); EOSINOPHILS % (AUTO) 4 % (0-10); HEMATOCRIT 33 % (40-54); LYMPHOCYTES # (AUTO) 1.3 10^3/uL (1.0-4.0); LYMPHOCYTES % (AUTO) 25 % (12-44); MEAN CORPUSCULAR HEMOGLOBIN 28 pg (25-34); MEAN CORPUSCULAR HGB CONC 33 g/dL (32-36); MEAN CORPUSCULAR VOLUME 85 fL (80-99); MEAN PLATELET VOLUME 9.4 fL (9.0-12.2); MONOCYTES # (AUTO) 0.8 10^3/uL (0.0-1.0); MONOCYTES % (AUTO) 16 % (0-12); NEUTROPHILS # (AUTO) 2.9 10^3/uL (1.8-7.8); NEUTROPHILS % (AUTO) 54 % (42-75); PLATELET COUNT 203 10^3/uL (130-400); WHITE BLOOD COUNT 5.3 10^3/uL (4.3-11.0)
[2022-08-15 15:21] LABS: ALBUMIN 3.8 GM/DL (3.2-4.5)
[2022-08-15 15:22] LABS: POTASSIUM 4.5 MMOL/L (3.6-5.0)
[2022-08-15 15:23] LABS: CALCIUM 8.9 MG/DL (8.5-10.1)
[2022-08-15 15:24] LABS: TOTAL PROTEIN 7.1 GM/DL (6.4-8.2)
[2022-08-15 15:26] LABS: BILIRUBIN,TOTAL 0.3 MG/DL (0.1-1.0)
[2022-08-15 15:28] LABS: CREATININE SERUM 1.8 MG/DL (0.60-1.30); INR 1.1 (0.8-1.4)
--- NOTE | 2022-08-15 15:34 | Diagnostic Imaging Report ---
EXAMINATION: Chest 1 view. HISTORY: Hip pain. COMPARISON: 08/01/2021. FINDINGS: The lungs are clear without edema or pneumonia. No pleural effusion or pneumothorax. Heart size is normal. A right-sided portacatheter is present. IMPRESSION: Clear lungs. Dictated by: Dictated on workstation # [id number]
--- NOTE | 2022-08-15 15:35 | Diagnostic Imaging Report ---
EXAMINATION: Right foot two view. HISTORY: Foot wound. COMPARISON: None available. FINDINGS: There is joint space irregularity of the first metatarsophalangeal joint. There are erosions in the base of the proximal phalanx of the first toe. No fracture is seen. There is a skin irregularity overlying the base of the fifth metatarsal. No underlying erosion is seen. There is mid foot osteoarthritis. No fracture. IMPRESSION: Erosions and joint space irregularity of the first metatarsophalangeal joint concerning for osteomyelitis. Dictated by: Dictated on workstation # [id number]
[2022-08-15 15:59] LABS: ERYTHROCYTE SEDIMENTATION RATE 26 MM/HR (0-30)
[2022-08-15 16:04] LABS: BILIRUBIN,URINE NEGATIVE (NEGATIVE); CLARITY,URINE CLEAR; COLOR,URINE YELLOW; GLUCOSE, URINE (UA) NEGATIVE (NEGATIVE); KETONES,URINE NEGATIVE (NEGATIVE); LEUKOCYTE ESTERASE ,URINE NEGATIVE (NEGATIVE); NITRITE,URINE NEGATIVE (NEGATIVE); PROTEIN,URINE 3+ (NEGATIVE)
[2022-08-15 16:19] LABS: BACTERIA,URINE TRACE /HPF; RBC,URINE RARE /HPF; SQUAMOUS EPITHELIAL CELL,UR RARE /HPF; WBC,URINE RARE /HPF
[2022-08-15] MEDS ORDERED: NS IV 1000 ML 1,000 ML IV STA (16:30)
[2022-08-15] MEDS ORDERED: TRM50T PO (16:53)
[2022-08-15] MEDS ORDERED: DOXY100T2 PO (16:53)
[2022-08-15 17:55] VITALS: BP 175/73
== END 2022-08-15 17:54 | disposition home or self-care (01) ==
LOC: EDUNIT# 14:42 → ER 14:46
DX: M25.551 Pain in right hip (principal); L03.031 Cellulitis of right toe; E11.621 Type 2 diabetes mellitus with foot ulcer; L97.519 Non-pressure chronic ulcer of other part of right foot with unspecified severity; E86.9 Volume depletion, unspecified; N17.9 Acute kidney failure, unspecified
CPT/HCPCS: 36415; 71045; 73620; 80053; 81000; 82947; 83605; 85025; 85610; 85652; 85730; 87040; 87070; 87088; 87205

== ENCOUNTER → 2022-09-15 | Outpatient (CLI) | payer MEDICARE, MEDICAID ==
[~2022-09-15] MED LIST changes: +CEPH500T PO; +DOXY100T2 PO; +TRM50T PO
[2022-09-15 14:59] LABS: ALBUMIN 3.9 GM/DL (3.2-4.5); POTASSIUM 4.4 MMOL/L (3.6-5.0)
[2022-09-15 15:01] LABS: TOTAL PROTEIN 7.1 GM/DL (6.4-8.2)
[2022-09-15 15:03] LABS: BILIRUBIN,TOTAL 0.3 MG/DL (0.1-1.0)
[2022-09-15 15:05] LABS: CREATININE SERUM 1.34 MG/DL (0.60-1.30)
== END ==
LOC: WOUNDCARE 12:40
PROVIDERS: ATTEND Family Medicine
DX: E11.621 Type 2 diabetes mellitus with foot ulcer (principal); L97.512 Non-pressure chronic ulcer of other part of right foot with fat layer exposed; L84 Corns and callosities; M14.671 Charcot's joint, right ankle and foot; I70.235 Atherosclerosis of native arteries of right leg with ulceration of other part of foot; E11.22 Type 2 diabetes mellitus with diabetic chronic kidney disease; N18.30 Chronic kidney disease, stage 3 unspecified
CPT/HCPCS: 11042; 36415; 80053; 85652; 86141

== ENCOUNTER → 2022-09-22 | Outpatient (CLI) | payer MEDICARE, MEDICAID | LOC: WOUNDCARE 09:23 | PROVIDERS: ATTEND Family Medicine | DX: L84 Corns and callosities (principal); M14.671 Charcot's joint, right ankle and foot; E11.621 Type 2 diabetes mellitus with foot ulcer; E11.22 Type 2 diabetes mellitus with diabetic chronic kidney disease; N18.30 Chronic kidney disease, stage 3 unspecified; L97.512 Non-pressure chronic ulcer of other part of right foot with fat layer exposed | CPT/HCPCS: 11042 ==

== ENCOUNTER → 2022-09-28 | Outpatient (CLI) | payer MEDICARE, MEDICAID ==
[~2022-09-28] MED LIST changes: +GADOTERATE 0.5 MMOL/ML (CLARISCAN) 20 ML VIAL IV ONE
--- NOTE | 2022-09-28 11:19 | Diagnostic Imaging Report ---
Exam: MRI right foot without and with intravenous contrast. Date: September 28, 2022. Indication: 77-year-old male, ulcer at the level of the great toe. Pain in this area. Evaluation for abscess and/or osteomyelitis Comparison: MRI right foot June 30, 2021. Right foot radiographs August 15, 2022. Technique: Multiple pre and postcontrast MRI sequences of the right foot were obtained. Findings: The Lisfranc ligament proper is intact. There is a tear of the first digit flexor tendons with the torn and retracted tendon near the level of the mid diaphysis of the first metatarsal. The visualized portions of the peroneal tendons are intact. The visualized portions of the anterior extensor tendons are intact. The visualized portions of the plantar fascia are intact. There is a volar skin defect in the region of the first metatarsophalangeal joint. There is no identified focal fluid collection or abscess. There is severe joint space loss and bone irregularity at the first metatarsophalangeal joint as well as moderate first metatarsophalangeal joint effusion. This is fairly similar to June 30, 2021. The additional joint spaces are well preserved. There is no otherwise noted joint effusion. Impression: 1. Volar skin defect at the level of the first metatarsal phalangeal joint without identified focal fluid collection or abscess. 2. Severe arthritis of the first metatarsophalangeal joint with bone irregularity and moderate size joint effusion concerning for septic arthritis. 3. Tear of the first digit flexor tendons with retraction of the tendons to the level of the mid diaphysis of the first metatarsal. Dictated by: Dictated on workstation # [id number]
== END ==
LOC: RAD 07:57
PROVIDERS: ATTEND Surgery
DX: S91.301A Unspecified open wound, right foot, initial encounter (principal); M19.071 Primary osteoarthritis, right ankle and foot; S93.521A Sprain of metatarsophalangeal joint of right great toe, initial encounter; X58.XXXA Exposure to other specified factors, initial encounter
CPT/HCPCS: 73720

== ENCOUNTER → 2022-09-29 | Outpatient (CLI) | payer MEDICARE, MEDICAID ==
[~2022-09-29] MED LIST changes: -GADOTERATE 0.5 MMOL/ML (CLARISCAN) 20 ML VIAL IV ONE
== END ==
LOC: WOUNDCARE 09:19
PROVIDERS: ATTEND Family Medicine
DX: L97.512 Non-pressure chronic ulcer of other part of right foot with fat layer exposed (principal); L84 Corns and callosities; A52.16 Charcot's arthropathy (tabetic); E11.621 Type 2 diabetes mellitus with foot ulcer; E11.22 Type 2 diabetes mellitus with diabetic chronic kidney disease; N18.30 Chronic kidney disease, stage 3 unspecified; E11.52 Type 2 diabetes mellitus with diabetic peripheral angiopathy with gangrene; I96 Gangrene, not elsewhere classified
CPT/HCPCS: 11042

== ENCOUNTER → 2022-10-13 | Outpatient (CLI) | payer MEDICARE, MEDICAID | LOC: WOUNDCARE 09:16 | PROVIDERS: ATTEND Family Medicine | DX: L84 Corns and callosities (principal); M14.671 Charcot's joint, right ankle and foot; E11.621 Type 2 diabetes mellitus with foot ulcer; E11.22 Type 2 diabetes mellitus with diabetic chronic kidney disease; N18.30 Chronic kidney disease, stage 3 unspecified; E11.52 Type 2 diabetes mellitus with diabetic peripheral angiopathy with gangrene; L97.512 Non-pressure chronic ulcer of other part of right foot with fat layer exposed | CPT/HCPCS: 11042 ==

== ENCOUNTER → 2022-10-20 | Outpatient (CLI) | payer MEDICARE, MEDICAID | LOC: WOUNDCARE 09:23 | PROVIDERS: ATTEND Family Medicine | DX: E11.621 Type 2 diabetes mellitus with foot ulcer (principal); L97.512 Non-pressure chronic ulcer of other part of right foot with fat layer exposed; L84 Corns and callosities; M14.671 Charcot's joint, right ankle and foot; E11.22 Type 2 diabetes mellitus with diabetic chronic kidney disease; N18.30 Chronic kidney disease, stage 3 unspecified; E11.52 Type 2 diabetes mellitus with diabetic peripheral angiopathy with gangrene | CPT/HCPCS: 11042 ==

== ENCOUNTER → 2022-10-27 | Outpatient (CLI) | payer MEDICARE, MEDICAID | LOC: WOUNDCARE 09:25 | PROVIDERS: ATTEND Family Medicine | DX: L97.512 Non-pressure chronic ulcer of other part of right foot with fat layer exposed (principal); L84 Corns and callosities; E11.610 Type 2 diabetes mellitus with diabetic neuropathic arthropathy; E11.621 Type 2 diabetes mellitus with foot ulcer; E11.22 Type 2 diabetes mellitus with diabetic chronic kidney disease; N18.30 Chronic kidney disease, stage 3 unspecified; E11.52 Type 2 diabetes mellitus with diabetic peripheral angiopathy with gangrene; I96 Gangrene, not elsewhere classified | CPT/HCPCS: 11042 ==

== ENCOUNTER → 2022-11-03 | Outpatient (CLI) | payer MEDICARE, MEDICAID | LOC: WOUNDCARE 09:27 | PROVIDERS: ATTEND Family Medicine | DX: L97.512 Non-pressure chronic ulcer of other part of right foot with fat layer exposed (principal); L84 Corns and callosities; A52.16 Charcot's arthropathy (tabetic); E11.621 Type 2 diabetes mellitus with foot ulcer; E11.22 Type 2 diabetes mellitus with diabetic chronic kidney disease; N18.30 Chronic kidney disease, stage 3 unspecified; E11.52 Type 2 diabetes mellitus with diabetic peripheral angiopathy with gangrene; I96 Gangrene, not elsewhere classified | CPT/HCPCS: 11042 ==

== ENCOUNTER → 2022-11-17 | Outpatient (CLI) | payer MEDICARE, MEDICAID | LOC: WOUNDCARE 09:28 | PROVIDERS: ATTEND Family Medicine | DX: E11.621 Type 2 diabetes mellitus with foot ulcer (principal); L97.512 Non-pressure chronic ulcer of other part of right foot with fat layer exposed; L84 Corns and callosities; M14.671 Charcot's joint, right ankle and foot; E11.22 Type 2 diabetes mellitus with diabetic chronic kidney disease; N18.30 Chronic kidney disease, stage 3 unspecified; E11.52 Type 2 diabetes mellitus with diabetic peripheral angiopathy with gangrene | CPT/HCPCS: 11042 ==

== ENCOUNTER → 2022-11-24 | Outpatient (CLI) | payer MEDICARE, MEDICAID | LOC: WOUNDCARE 09:25 | PROVIDERS: ATTEND Family Medicine | DX: I96 Gangrene, not elsewhere classified (principal); M14.671 Charcot's joint, right ankle and foot; L84 Corns and callosities; E11.621 Type 2 diabetes mellitus with foot ulcer; N18.30 Chronic kidney disease, stage 3 unspecified; L97.512 Non-pressure chronic ulcer of other part of right foot with fat layer exposed | CPT/HCPCS: 11042 ==

== ENCOUNTER → 2022-12-01 | Outpatient (CLI) | payer MEDICARE, MEDICAID ==
[2022-12-01 10:32] LABS: ALBUMIN 3.9 GM/DL (3.2-4.5); BILIRUBIN,TOTAL 0.4 MG/DL (0.1-1.0); CREATININE SERUM 1.36 MG/DL (0.60-1.30); POTASSIUM 4.6 MMOL/L (3.6-5.0)
== END ==
LOC: WOUNDCARE 09:28
PROVIDERS: ATTEND Family Medicine
DX: E11.621 Type 2 diabetes mellitus with foot ulcer (principal); L97.512 Non-pressure chronic ulcer of other part of right foot with fat layer exposed; L84 Corns and callosities; M14.671 Charcot's joint, right ankle and foot; E11.22 Type 2 diabetes mellitus with diabetic chronic kidney disease; N18.30 Chronic kidney disease, stage 3 unspecified
CPT/HCPCS: 11042; 36415; 80053; 83036

== ENCOUNTER → 2022-12-23 | Outpatient (CLI) | payer MEDICARE | LOC: CARD 12:30 | PROVIDERS: ATTEND Internal Medicine Cardiovascular Disease | DX: I08.3 Combined rheumatic disorders of mitral, aortic and tricuspid valves (principal); I11.9 Hypertensive heart disease without heart failure | CPT/HCPCS: 93306 ==